=== PATIENT | female | born 1935 | race Caucasian/White ===

== ENCOUNTER 2016-07-21 18:19 | Inpatient (IN) | payer MEDICARE, OTHER ==
[~2016-07-21] VITALS: Ht 152.4 cm; Wt 56.1 kg
[~2016-07-21 18:19] MED LIST: AMLO10TA3 PO; ASPI81TA3 PO; ATOR80TA PO; CARV12.52 PO; CHOL10008 PO; CRAN1TAB5 PO; FURO40TA4 PO; HYDR-3939 PO; ISOS20TA4 PO; MAGN500C4 PO; MULT-1065 PO; NITR0.4T SL; POTA10TA38 PO; RANI150C4 PO
[2016-07-21 18:33] VITALS: BP 142/69; PULSE 97; RESP 23; O2SAT 91
--- NOTE | 2016-07-21 18:43 | ED.REPORT ---
HPI-Chest Pain 40 and Over Date of Service Jul 21, 2016 ED Provider: Clarice Farnsworth MD Patient is an 80 year female who presents to the ED via EMS complaining of SOB onset a few days ago. Associated symptoms include constant chest pain (since resolved, given Nitro and aspirin by EMS), non-productive cough, chills (family reports baseline) , abdominal pain, and nausea. She denies fever, edema, vomiting, or any other symptoms. Nursing Notes Stated Complaint: CHEST PAIN Chief Complaint: Chest Pain Nursing Notes Reviewed: Yes Allergies: Coded Allergies: Sulfa (Sulfonamide Antibiotics) (Verified Allergy, Unknown, KIDNEY PROBLEMS, 11/26/15) Scheduled Amlodipine (Amlodipine) 10 Mg Tablet 10 MG PO BID Aspirin Chew (Aspirin Chew) 81 Mg Chew 81 MG PO HS Atorvastatin (Lipitor) 80 Mg Tablet 80 MG PO HS Carvedilol (Carvedilol) 12.5 Mg Tablet 12.5 MG PO BID Cholecalciferol (Vitamin D3) (Vitamin D3) 1,000 Unit Tab.chew 1,000 UNIT PO HS Cranberry Conc/C/Bacill Coag (Cranberry Tablet) 1 Each Tablet 1 EACH PO BID Ferrous Sulfate (Ferrous Sulfate) 324 Mg Tablet.dr 324 MG PO TID Furosemide (Furosemide) 40 Mg Tablet 40 MG PO QAM Isosorbide MN ER (Isosorbide MN ER) 60 Mg Tab.er.24h 60 MG PO QAM Magnesium Oxide (Magnesium) 500 Mg Capsule 500 MG PO BID Multivits-Min/Iron/FA/Lutein (Centrum Silver Women Tablet) 8 Mg Iron-400 Mcg- 300 Mcg Tablet 1 EACH PO QAM Potassium Chloride (Potassium Chloride) 10 Meq Tab.er.prt 10 MEQ PO QAM TAKE WITH FOOD Ranitidine (Ranitidine) 150 Mg Capsule 150 MG PO HS Scheduled PRN Nitroglycerin SL (Nitrostat) 0.4 Mg Tab.subl 0.4 MG SL Q5MIN PRN PRN For Chest Pain General Time Seen by MD: 18:43 Chief Complaint Chest pain Hx Obtained From: Patient, Spouse, Daughter Arrived By: Ambulance Sudden in Onset?: Yes Onset Occurred: 3 days ago Symptom Duration: Since onset Risk Factors )( CAD Risk Stratification Hyperlipidemia HypertensionNo Diabetes mellitus Risk factors reviewed )( TAD Risk Stratification HypertensionNo Risk factors reviewed )( PE Risk Stratification Risk factors reviewed Past Medical History Past Medical History Notes: Back End Web Developer: Dr. Jain Property Management Intern: Dr. Key PCP: Dr. Mukherjee Cardiac cath January 2007 no signficant coronary disease normal LV function increased LVEDP consistent with diastolic dysfunction Past Medical History known LBBB and AV block Reports: Congestive heart failure, Hyperlipidemia, Hypertension, Denies: Diabetes mellitus Reports: Atrial fibrillation, Renal insufficiency Past Surgical History cardiac catheterization Family History Reports: Coronary artery disease, Stroke Smoking History Former Smoker Social History Other Social History: Good social support, , Local resident Ambulatory Status Independent Review of Systems Constitutional: Denies: Fever Respiratory: Reports: Non-productive cough, Shortness of breath Cardiovascular: Reports: Chest pain GI: Reports: Abdominal pain, Nausea, Denies: Vomiting Musculoskeletal: Denies: Extremity swelling Complete sys rev & neg: except as marked. Physical Exam Initial Vital Signs Vital Signs (First) Date Time Temp Pulse Resp B/P Pulse Ox O2 Delivery O2 Flow Rate FiO2 07/21/16 18:33 37.3 97 23 142/69 91 Nasal Cannula 3 Initial VS: Reviewed Head / Eyes: Atraumatic, Normocephalic Neck: Full range of motion Extremities: Vascular intact, Neuro intact, No swelling Skin: Warm, Dry Neurologic: Alert, Oriented, Nonfocal Psychiatric: Mood/affect normal, Behavior normal, Normal thought content Wheezing / Retractions: Positive: Wheezing mild (Diffuse ) Off of oxygen her O2 level drops to 88 Cardiovascular: Heart rate NL, Regular rhythm, Heart sounds NL, Peripheral circulation NL Abdomen: Atraumatic, Soft, Non-tender Interpretation & Diagnostics Lab Results Interpretation Result Diagram: 07/21/16 1856 07/21/16 1856 Test 07/21/16 18:56 White Blood Count 10.3th/mm3 (3.8-10.1) Red Blood Count 3.62mil/mm3 (3.90-5.20) Hemoglobin 11.2g/dL (12.0-15.6) Hematocrit 33.6% (35.0-46.0) Mean Corpuscular Volume 92.8fL (81-100) Mean Corpuscular Hemoglobin 30.9pg (27.0-35.0) Mean Corpuscular Hemoglobin Concent 33.3% (32.0-37.0) Red Cell Distribution Width 13.8% (12.3-15.4) Platelet Count 125bil/L (150-400) Neutrophils (%) (Auto) 82.2% (40-74) Lymphocytes (%) (Auto) 9.0% (14-46) Monocytes (%) (Auto) 8.1% (4-12) Eosinophils (%) (Auto) 0.3% (0-5) Basophils (%) (Auto) 0.2% (0-3) Activated Partial Thromboplast Time 20.2sec (22.8-33.0) Sodium Level 138mEq/L (134-144) Potassium Level 3.9mEq/L (3.5-5.2) Chloride Level 103mEq/L (97-108) Carbon Dioxide Level 21mmol/L (18-29) Blood Urea Nitrogen 27mg/dL (8-27) Creatinine 1.84mg/dL (0.57-1.00) Estimat Glomerular Filtration Rate 38mL/min (>59) Glucose Level 144mg/dL (60-99) Calcium Level 9.1mg/dL (8.5-10.1) Magnesium Level 1.8mg/dL (1.6-2.6) Total Bilirubin 1.2mg/dL (0.0-1.2) Aspartate Amino Transf (AST/SGOT) 204U/L (0-50) Alanine Aminotransferase (ALT/SGPT) 182U/L (0-32) Alkaline Phosphatase 202U/L (25-165) Pro-B-Type Natriuretic Peptide 33844vc/mL (0-738) Total Protein 6.5g/dL (6.4-8.4) Albumin 3.2g/dL (3.4-5.0) Procalcitonin 0.87ng/mL (See Comment) Hold Brown Top Tube Received (Received) ECG Interpretation ECG Interpretation: LBBB unchanged prior sinus 91 does not meet Sgarbossa criteria Time: 18:54 Interpreted by: ED physician X-Ray Chest Interpretation Chest Xray Interpretation: IMPRESSION: Bibasilar pneumonia. Follow up plain films of the chest are recommended to ensure resolution, and to exclude underlying or central malignancy. Dictated by: Timothy Dwyer M.D. on 07/21/2016 at 18:54 Approved by: Timothy Dwyer M.D. on 07/21/2016 at 18:54 View: Portable, 1 view Interpretation / Wet Read by: Interpret - Radiologist Re-Eval/Medical Decision Med Decision/Clinical Course 80-year-old female with past medical history of hypertension, CHF, chronic renal insufficiency here with chest pain which has been getting progressively worse over the last several days associated with cough. Differential diagnosis includes but is not limited to CHF exacerbation versus pneumonia versus acute coronary syndrome versus influenza. Labs are remarkable for baseline renal insufficiency, elevated troponin which is not the patient's baseline, elevated BNP, baseline anemia. X-ray shows bibasilar pneumonias. Her EKG shows a left bundle branch block that does not meet Sgarbossa criteria for SC. Patient has been accepted by hospitalist and I have discussed the case with cardiology who did request that she will is heparinized in the meantime. Patient has also been given antibiotics for pneumonia. She is aware and amenable to admission at this time. Time of Eval: 20:21 Re-Evaluation/Progress Note: Rechecked patient. Discussed desire for admission and informed patient of consult with cardiology. Patient understands and agrees with plan. All questions addressed at this time. Consultation #1: Referral / Consult Name: Becca Segal MD Consulted With: Hospitalist Call Returned at: 19:47 Bee Farmer: Will see patient, Agrees with eval, Agrees with plan, Accepts admit Note: Discussed patient's case. Accepts admit. Consultation #2: Referral / Consult Name: Fer Musa MD Consulted With: Cardiology Call Returned at: 20:14 Note: Suggests using Heparin but not Plavix. Does not feel like it is necessary for patient to be seen in the cardiac catheterization technologist. Consultation #3: Referral / Consult Name: Becca Segal MD Consulted With: Hospitalist Call Returned at: 20:20 Bee Farmer: Agrees with plan Note: Informed hospitalist of consult with cardiology and plan for treatment. Counseled Regarding: Diagnosis, Lab results, Need for admission Discharge & Departure Disposition: ADMITTED TO HOSPITAL Referrals: Ghulam Mukherjee MD (PCP) Scribe Attestation Portions of this note were transcribed by René Mallory. IDr. Farnsworth personally performed the history, physical exam and medical decision-making; I reviewed and confirmed the accuracy of the information in the transcribed note. Signed by: René Mallory 07/21/2016, 220 copies to: Ghulam Mukherjee MD, Rebecca A MD Jul 21, 2016 18:43 RENÉ MALLORY Jul 21, 2016 18:57
--- NOTE | 2016-07-21 18:56 | DRSVH ---
PROCEDURE: X-RAY CHEST ONE VIEW, PORTABLE ([id number]) INDICATIONS: chest pain TECHNIQUE: One view of the chest was acquired. COMPARISON: None. FINDINGS: Surgical changes and devices: None. Lungs and pleura: No pleural effusions or pneumothorax. Mild bibasilar patchy airspace opacity. Mediastinum: Mediastinal contours appear normal. Heart size is normal. Bones and chest wall: No suspicious bony lesions. Overlying soft tissues appear unremarkable. IMPRESSION: Bibasilar pneumonia. Follow up plain films of the chest are recommended to ensure resolut ion, and to exclude underlying or central malignancy. Dictated by: Timothy Dwyer M.D. on 07/21/2016 at 18:54 Approved by: Timothy Dwyer M.D. on 07/21/2016 at 18:54
[2016-07-21] MEDS ORDERED: cefTRIAXone Inj 1,000 MG in IV Premix 1 EACH IV ONE (19:10)
[2016-07-21] MEDS ORDERED: Azithromycin Inj 500 MG in Dextrose 5% w/Vial Mate 250 ML IV ONE (19:10)
[2016-07-21 19:13] LABS: BASOPHILS % (AUTO) 0.2 % (0-3); EOSINOPHILS % (AUTO) 0.3 % (0-5); MONOCYTES % (AUTO) 8.1 % (4-12); Mean Corpuscular Hemoglobin 30.9 pg (27.0-35.0); Mean Corpuscular Volume 92.8 fL (81-100); NEUTROPHILS % (AUTO) 82.2 % (40-74); Platelet Count 125 bil/L (150-400)
[2016-07-21 19:33] LABS: Magnesium 1.8 mg/dL (1.6-2.6)
[2016-07-21 19:46] LABS: TROPONIN T 0.055 ug/L (0.0-0.011)
[2016-07-21] MEDS ORDERED: Ondansetron 2 mg/mL 2 mL Inj IVPUSH PRN ×2 (20:10→21:00)
[2016-07-21] MEDS ORDERED: Alum-Mag Hydrox-Simeth 30 mL Suspension PO PRN ×2 (20:10→21:00)
[2016-07-21] MEDS ORDERED: Heparin 5,000 Unit/mL Inj IVPUSH ONE (20:20)
[2016-07-21] MEDS ORDERED: Heparin 25K Unit/500mL 0.45 NS 25,000 UNIT in IV Premix 1 EACH IV ONE (20:20)
[2016-07-21] MEDS ORDERED: FERR324T2 PO (20:53)
[2016-07-21] MEDS ORDERED: ISOS60TA2 PO (20:53)
[2016-07-21] MEDS ORDERED: Senna-Docusate 8.6-50 mg Tablet PO PRN (21:00)
[2016-07-21] MEDS ORDERED: Polyethylene Glycol (PEG) 17 Gm Powder PO PRN (21:00)
[2016-07-21 21:22] VITALS: BP 139/69; PULSE 92; RESP 18; O2SAT 93
[2016-07-21 21:28] VITALS: BP 143/79; PULSE 71; RESP 18; O2SAT 99
--- NOTE | 2016-07-21 22:11 | PCM.HPMED ---
Subjective Date of Service Jul 21, 2016 Primary Provider: Admitting Physician: Becca Segal MD Primary Care Physician: Ghulam Mukherjee MD Attending Physician: Becca Segal MD Chief Complaint: Dyspnea, Chest pain History of Present Illness: Patient is an 80-year-old female with a history of congestive heart failure, hypertension, dyslipidemia, paroxysmal atrial fibrillation, and chronic kidney disease who presents to the ED via EMS complaining of dyspnea and chest pressure /tightness. Patient is accompanied by her at bedside at time of visit. Patient reports onset of dyspnea and chest pressure about two days ago. Patient' s states the patient slept for most of the day awoke in the afternoon with complaints of worsening shortness of breath and chest pain while at rest. Patient checked her O2 sat and at that time was 83% on room air. 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 EMS was summoned and the patient reports improvement in her dyspnea and chest pressure after their arrival and after receiving sublingual nitro. Patient reports associated diaphoresis, nausea and an episode of emesis. She otherwise denies radiation with the chest pain, lower extremity edema, abdominal pain, fever, recent sick contacts. In the ED, vitals: temp 373, HR 97, RR 23 satting 91% on 3L, BP 142/69. Troponin 0.055, Pro-BNP 10538. Chest x-ray reads bibasilar pneumonia. EKG with chronic LBBB. Patient subsequently started on ceftriaxone, azithromycin and heparin gtt cardiac protocol. Review of Systems: A comprehensive review of systems was conducted with the patient and found to be negative except as above in the History of Present Illness. Allergies Coded Allergies: Sulfa (Sulfonamide Antibiotics) (Verified Allergy, Unknown, KIDNEY PROBLEMS, 11/26/15) Home Medications Amlodipine 5mg BID Carvedilol 12.5mg BID Lasix 40mg daily Atorvastatin 80mg daily Ranitidine 150mg daily Ferrous sulfate 324mg TID Isosorbide mononitrate 30mg daily ASA 81mg daily Multivitamin daily Vitamin D3 1000mg Potassium chloride 10mEq daily Magnesium 500mg BID PMH Hypertension with hypertensive heart disease Chronic LBBB First degree AV block Hyperlipidemia Moderate Mitral regurgitation and mod tricuspid regurgitation Paroxysmal Atrial Fibrillation Chronic Kidney disease. Followed by Dr Key Chronic diastolic heart failure (Echo 11/2015 with EF 40-45%) Renal artery stenosis s/p renal stent placement Surgical History Cataract Cardiac cath Hysterectomy Tonsillectomy Laser ablation of varicose veins Left Hip replacement Cystocele repair MOHS procedure for squamous cell carcinoma Family History Father hypertension, CVA, from kidney failure with history of LA at 70 Mother DM, hypertension, of massive LA in sleep at 83 Sister 1 from massive LA Social History Occupation: Retired, former [employer] Hx Alcohol Use: No Hx Substance Use: No Hx Tobacco Use: Yes Smoking Status: Former Smoker Living Arrangement: with Family Exam Vital Signs Vital Sign - Last Date Time Temp Pulse Resp B/P Pulse Ox O2 Delivery O2 Flow Rate FiO2 07/21/16 18:33 37.3 97 23 142/69 91 Nasal Cannula 3 Exam General: No acute distress, well-developed, appropriately interactive HEENT: Normocephalic, atraumatic. External ears without defect. Pupils equal, round, and reactive to light. Anicteric sclerae, moist conjunctivae, and no lid lag. Oropharynx free of erythema and cobble stoning with moist mucosa. Nasal cannula in place. Neck: Supple. No jugular venous distension. Prominent submandibular nodes. No thyromegaly appreciated. Cardiovascular: Regular rate and rhythm with no murmurs, rubs, or gallops appreciated Pulmonary: Crackles at bases bilaterally. Normal respiratory effort with no use of accessory muscles. Abdomen: Bowel tones present. Soft, nontender, nondistended. No hepatosplenomegaly or masses appreciated. Extremities: Dorsalis pedis pulses equal bilaterally. No clubbing, cyanosis, edema, or lymphadenopathy appreciated. Skin: Normal temperature, turgor, and texture Neurological: Cranial nerves grossly intact Psychiatric: Normal mood and affect. Alert and oriented to person, place, and time. Lab and Diagnostics Result Diagram: 07/21/16185507/21/161855 X-Rays, CTs and MRIs PROCEDURE: X-RAY CHEST ONE VIEW, PORTABLE ([id number]) INDICATIONS: chest pain TECHNIQUE: One view of the chest was acquired. COMPARISON: None. FINDINGS: Surgical changes and devices: None. Lungs and pleura: No pleural effusions or pneumothorax. Mild bibasilar patchy airspace opacity. Mediastinum: Mediastinal contours appear normal. Heart size is normal. Bones and chest wall: No suspicious bony lesions. Overlying soft tissues appear unremarkable. IMPRESSION: Bibasilar pneumonia. Follow up plain films of the chest are recommended to ensure resolution, and to exclude underlying or central malignancy. Dictated by: Timothy Dwyer M.D. on 07/21/2016 at 18:54 Approved by: Timothy Dwyer M.D. on 07/21/2016 at 18:54 Assessment & Plan Patient is an 80-year-old female with a history of congestive heart failure, hypertension, dyslipidemia, paroxysmal atrial fibrillation, and chronic kidney disease admitted for dyspnea and chest pain; found to have bilateral pneumonia and elevated troponin. 1. Acute chest pain. Present on admission -Chest pain resolved following SL nitro via EMS -Risk factors for ACS includes CAD, dyslipidemia, hypertension, family history -Possible etiologies include ACS, CHF exacerbation, pneumonia -Elevated troponin 0.055. Continue to trend -Continue cardiac heparin gtt -SL nitro and morphine PRN -Telemetry -Cardiology to see the patient 2. Bibasilar pneumonia, acute. Present on admission -Chest x-ray reads bibasilar pneumonia -Will place in droplet isolation until influenza screen results -Pending studies: Procalcitonin, Respiratory viral PCR, legionella and strep pneumo urine ag, Sputum cx -Azithromycin and ceftriaxone 3. Chronic systolic and diastolic heart failure. Present on admission -Echocardiogram 11/2015 shows estimated EF 40-45%; Septal motion consistent with conduction abnormality. Mid to distal septal hypokinesis, mild inferior hypokinesis -Pro-BNP 41638 -I/Os, standing daily weights -Lasix 40mg IV x 1. Reassess in AM -Continue home hydralazine and isosorbide mononitrate 4. Acute transaminitis. Present on admission -Possibly secondary to hepatic congestion secondary to #3 -Consider acute hepatitis panel -Follow with CMP 5. Hypertension with Hypertensive heart disease, chronic. Present no admission - Continue amlodipine, hydralazine and isosorbide 6. Dyslipidemia, chronic. Present on admission -Lipid panel -Continue home atorvastatin 80 mg daily 7. Chronic kidney disease. Present on admission -Creatinine 1.84; Query baseline renal function -Avoid nephrotoxins -Follow with CMP 8. Paroxysmal Atrial Fibrillation, chronic. Present on admission -Currently NSR -Monitor on tele Patient Status: Patient is admitted under inpatient status with expected length of stay greater than 2 midnights due to severity of presenting symptoms, risk of adverse event, and complexity of treatment plan. GI Prophylaxis: Not indicated VTE Prophylaxis: Other (cardiac heparin gtt) Resuscitation Status: DNR/DNI:Do Not Resuscitate/Intubate Attending Statement Patient seen and examined by myself and agree with above plan. Dom River DO Jul 21, 2016 21:32 Becca Segal MD Jul 22, 2016 02:36
[2016-07-21] MEDS ORDERED: Furosemide 10 mg/mL 4 mL Inj IVPUSH ONE (22:15)
--- NOTE | 2016-07-21 23:17 | NUR ---
Admit Patient arrived to room 1028 around 2114 via ER bed. Able to stand and walk to OSC bed. A&Ox3, answering questions appropriately. Denied pain or discomfort. Placed on droplet precautions per order. UA obtained and sent to lab. Arrived to floor with heparin gtt running @ 16 ml/hour. IV site asymptomatic. Orders noted to be written for PCC/CCU. Paged Dr. River @ [phone] to clarify which floor he would like patient on. Dr. River stated he would like patient on PCC floor r/t chest pain. Spoke with charge poster on PCC and there were no open beds available. Patient to go [place] [facility]. Admit completed with patient to best of her ability. Med rec completed in ER. Oriented to room and call light. Addendum: 07/22/16 at 0004 by ALIX HYDE RN Report given to SYLVIE Bernard on [facility]. Patient taken up via OSC bed around 2350. Meds and belongings sent with.
[2016-07-21 23:50] LABS: APPEARANCE,URINE HAZY (CLEAR,HAZY); COLOR,URINE YELLOW (YELLOW); OCCULT BLOOD,URINE SMALL (NEGATIVE); UROBILINOGEN,URINE NORMAL (NORMAL)
[2016-07-22] VITALS (7 sets, daily range): BP systolic 118–148; BP diastolic 58–80; PULSE 62–81; RESP 18–20; O2SAT 92–98
[2016-07-22 03:19] LABS: BASOPHILS % (AUTO) 0.2 % (0-3); EOSINOPHILS % (AUTO) 1.5 % (0-5); MONOCYTES % (AUTO) 9.5 % (4-12); Mean Corpuscular Hemoglobin 31.4 pg (27.0-35.0); NEUTROPHILS % (AUTO) 68.9 % (40-74); Platelet Count 124 bil/L (150-400)
--- NOTE | 2016-07-22 07:43 | NUR ---
[place] / [place]iac [place] [facility] [facility] [id number] approx at 0000. Heparin gtt cardiac protocol was infusing at 600 u/hr. VSS. Pt denies CP or SOB. Up to BSC x 2. Tolerated well. PTT spuratherapeutic . Gtt adjusted per cardiac. No overt complications noted.
[2016-07-22] MEDS ORDERED: 0.9% Sodium Chloride 250 ML ONE (08:12)
[2016-07-22] MEDS ORDERED: cefTRIAXone Inj 1,000 MG in IV Premix 1 EACH IV SCH (08:30)
[2016-07-22] MEDS: Azithromycin Inj 500 MG in Dextrose 5% w/Vial Mate 250 ML IV SCH (09:22)
[2016-07-22] MEDS: Heparin 5,000 Unit/mL Inj IVPUSH PRN (12:22)
[2016-07-22] MEDS ORDERED: Furosemide 10 mg/mL 2 mL Inj IVPUSH SCH (14:25)
[2016-07-22] MEDS: Isosorbide Mononitrate 60 mg ER24 Tablet PO SCH (14:45)
--- NOTE | 2016-07-22 15:21 | CONS ---
[address] [address] CONSULTATION REPORT PATIENT: WILLIE ACOSTA : 1935 MR#: [id number] ADMIT: 07/21/2016 JOB ID: [id number] DATE OF SERVICE: 07/22/2016 CARDIOLOGY CONSULTATION: REASON FOR CONSULT: For the evaluation of shortness of breath, chest pain and abnormal troponin. CHIEF COMPLAINT: Shortness of breath, chest pain, palpitations. PRESENT HISTORY: This 80-year-old pleasant female, who is a patient of Dr. Jain, who has a history of chronic left bundle branch block, first-degree AV block, paroxysmal AFib, LV ejection fraction 45%-50% based on echocardiogram done on March 18, 2016 with oxmnytwo-dn-jceveh mitral regurgitation, jxsjstfr-nv-kdylna tricuspid regurgitation, severe pulmonary hypertension with pulmonary artery systolic pressure about 82 mmHg, mild aortic regurgitation, renovascular hypertension, status post left renal artery stenting in 2008, status post left heart catheterization in 2006 without any significant coronary artery disease at that time, chronic renal insufficiency, creatinine about 2.2. in April 2016, got admitted because of above-mentioned chief complaint. According to the patient, on , she felt palpitations. Two days ago she had shortness of breath and chest pain which was pressure type. It lasted a couple of hours. On a scale of 1-10, it was about 6 or 7 in intensity. Then, she went into sleep. Next day, she was sleeping the whole day. Then, she developed shortness of breath and chest pain again. Her checked her oxygen saturation which was 83%. She was started on oxygen. EMS was called. She received sublingual nitroglycerin which helped her chest pain. She got admitted to the hospital. On x-ray chest there were bibasilar pneumonia. She has chronic left bundle branch block. Her troponin was abnormal. ProBNP was elevated. She was started on treatment for pneumonia as well as possible acute coronary syndrome. Cardiology consult was sought. At present, she is lying on bed. She is not having any active chest pain. Her breathing is better. According to her from last couple of months, she has been having memory loss as well. At present, no stroke-like symptoms. No active bleeding. She has some cough but she is not able to bring phlegm. Denies any fever or chills. PAST MEDICAL HISTORY: 1. History of chronic left bundle branch block. 2. First-degree AV block. 3. Mild LV dysfunction with LV ejection fraction 45%- 50% with severe pulmonary hypertension. 4. Moderately severe mitral and tricuspid regurgitation with pulmonary artery systolic pressure about 82 mmHg based on echocardiogram done on March 18, 2016. 5. No significant coronary artery disease based on heart catheterization January 2007. 6. Renovascular hypertension. 7. Left renal artery stenting in 2008, without any critical carotid artery disease in the past. 8. Hyperlipidemia. 9. Diastolic heart failure as well. 10. Degenerative joint disease. 11. Paroxysmal Afib. 12. Chronic renal insufficiency, etc. PAST SURGICAL HISTORY: As stated above. ALLERGIES: The patient is allergic to SULFA. HOME MEDICATION: 1. Amlodipine 5 mg b.i.d. 2. Carvedilol 12.5 mg b.i.d. 3. Lasix 40 mg daily. 4. Atorvastatin 80 mg daily. 5. Ranitidine 150 mg daily. 6. Ferrous sulfate 324 mg t.i.d. 7. Isosorbide mononitrate 30 mg daily. 8. Aspirin 81 mg daily. 9. Multivitamin. 10. Vitamin D3. 11. Potassium chloride 10 mEq daily. 12. Magnesium 500 mg b.i.d. PAST SURGICAL HISTORY: 1. Cataract surgery. 2. Left renal artery stenting. 3. History of heart catheterization. 4. Hysterectomy. 5. Tonsillectomy. 6. Laser ablation of varicose veins. 7. Left hip replacement. 8. Cystocele repair. 9. Mohs procedure for squamous cell carcinoma. FAMILY HISTORY: Positive for CVA, TN. REVIEW OF SYSTEMS: HEENT: As stated above. Respiratory system: As stated above. CV: As stated above. GI: As stated above. : As stated above. CARPENTER MINE: Denies any stroke, seizure at present. Hematology/Oncology: As stated above. SOCIAL HISTORY: She is an ex-smoker. Denies any alcohol abuse. PHYSICAL EXAMINATION: Blood pressure 148/74, heart rate 76, respiratory rate 18, oxygen saturation 98% on 3 L. HEENT: No significant jaundice. Positive hepatojugular reflex. Chest: Bilateral decreased air entry with crepitations. CVS: S1 appears normal. P2 appears paradoxically split. Grade 2/6 ejection systolic murmur at the left lower sternal area in the apex as well as at the base. Abdomen: No obvious pulsatile mass. Extremities: Mild pedal edema. Vascular: No evidence of critical limb ischemia. CARPENTER MINE: The patient is responding to questions, able to move all the four extremities. LABORATORY: Sodium 137, potassium 3.6, BUN 27, creatinine 1.78. Total bilirubin 0.8, AST 129, ALT 143, alkaline phosphatase 171. Troponin T 0.055, 0.211, 0.215, 0.270. Procalcitonin 0.87-1.79. ProBNP 26,313. WBC 6.6, initial WBC 10.3, hemoglobin 11.7, hematocrit 34.7. Polymorphs on admission 82.2. IMAGING: X-ray of chest, bilateral basilar pneumonia. Heart size reported to be normal. The patient had a pharmacological perfusion study in November 2005. In that time, the patient has about moderate-sized predominantly fixed distal anterior wall apical defect. The patient did not have any prone images. At that time LV ejection fraction reported to be 62% without significant reversible ischemia. EKG revealed sinus rhythm with left bundle branch block with first-degree AV block which is old. ASSESSMENT AND PLAN: Acute coronary syndrome. Likely non ST-T myocardial infarction. The patient has chronic left bundle branch block and first-degree AV block. In the setting of pneumonia, likely combination of systolic as well as diastolic heart failure with known history of moderately severe mitral regurgitation, tricuspid regurgitation, severe pulmonary hypertension, renovascular hypertension, status post left renal artery stenting in 2008, chronic kidney disease, history of paroxysmal AFib, abnormal liver function, and other problems as stated above. I had a long discussion with the patient's as well as with the patient and discussed underlying medical problems as well as possibility of acute coronary syndrome with non ST-T myocardial infarction. We discussed different treatment options including invasive approach which will require left heart catheterization with benefits and risks, which include, but not limited to, risk of worsening renal insufficiency, myocardial infarction, stroke, , etc. The patient is aware of her underlying medical problems including worsening renal insufficiency. She already sees Dr. Key from Nephrology. At present, decided not to do any aggressive cardiac workup. Medical management only. Will get echocardiogram. I will start her on dual anti-platelet therapy. For 48 hours, consider heparin. Regarding long-term anticoagulation, I will leave up to her boom pump operator, Dr. Jain, who saw her on June 02, 2016. Continue diuretic as tolerated along with tolerable dose of beta jeanne. She is on high intensity statin. We will recommend close watch on liver function. If there is increase in liver function, then cut down the pravastatin from 80 to 40 mg. Tomorrow my associate, Dr. Mayfield, will be available to see the patient Overall time spent today about 75 minutes.
--- NOTE | 2016-07-22 16:09 | PCM.PNMED ---
Subjective Date of Service Jul 22, 2016 Subjective No overnight events. Patient is awake and denies chest pain or shortness of breath this morning. She does c/o sharp pain in her right abdomen, 7/10. Denies nausea, vomiting, diarrhea, constipation, fever, chills. Exam Vital Signs Vital Sign - Last Date Time Temp Pulse Resp B/P Pulse Ox O2 Delivery O2 Flow Rate FiO2 07/22/16 10:11 36.3 76 18 148/74 98 Nasal Cannula 3.00 Intake and Output 07/21/16 07/21/16 07/22/16 Cumulative From/Thru 15:00 23:00 07:00 07/21/16 21:15 - 07/22/16 06:57 Intake Total 555 ml 555 ml Output Total 400 ml 400 ml Balance 155 ml 155 ml Intake Oral 200 ml 200 ml IV Total 355 ml 355 ml Output Urine Total 400 ml 400 ml # Bowel Movements 0 0 Exam WNWD, A&O x 3, NAD Sclera anicteric Neck supple, no JVD Regular rate and rhythm Lungs CTAB Abdomen soft, tender to palpation at the RUQ Lower extremities with trace pitting edema L>R Lab and Diagnostics Result Diagram: 07/22/16 0715 07/22/16 0310 Microbiology Microbiology MONSTER STREP PNEUMONIAE AG URINE Final 07/22/16-0831 STREP PNEUMO AG POSITIVE Tests performed directly on clinical specimens are intended for screening purposes only and should augment, not replace, culture procedures Please Note: Streptococcus pneumoniae vaccine may cause false positive results in urine in the 48 hours following injection. Hence, it is recommended that the Alere Strep pneumoniae Antigen testing not be performed within five days of receiving the S. pneumoniae vaccine X-Rays, CTs and MRIs PROCEDURE: X-RAY CHEST ONE VIEW, PORTABLE ([id number]) INDICATIONS: chest pain TECHNIQUE: One view of the chest was acquired. COMPARISON: None. FINDINGS: Surgical changes and devices: None. Lungs and pleura: No pleural effusions or pneumothorax. Mild bibasilar patchy airspace opacity. Mediastinum: Mediastinal contours appear normal. Heart size is normal. Bones and chest wall: No suspicious bony lesions. Overlying soft tissues appear unremarkable. IMPRESSION: Bibasilar pneumonia. Follow up plain films of the chest are recommended to ensure resolution, and to exclude underlying or central malignancy. Dictated by: Timothy Dwyer M.D. on 07/21/2016 at 18:54 Approved by: Timothy Dwyer M.D. on 07/21/2016 at 18:54 12-lead ECG EKG: sinus rhythm with LBBB and first degree AV block Assessment & Plan Patient is an 80-year-old female with a history of congestive heart failure, hypertension, dyslipidemia, paroxysmal atrial fibrillation, and chronic kidney disease admitted for dyspnea and chest pain; found to have bilateral pneumonia and elevated troponin. 1. Acute coronary syndrome, present on admission, active - Cardiology, Dr. Mayfield, consulted We appreciate the input - Likely NSTEMI - Patient with LBBB and 1st degree AV block - Risk factors for ACS includes CAD, dyslipidemia, hypertension, family history - Possible etiologies include CHF exacerbation, pneumonia, CKD - Elevated troponin 0.055. Continue to trend: 0.215, 0.270 - Different treatment options discussed with the patient and her ( Raulmishelzoe). They opted for medical management only - Continue cardiac heparin gtt for 48 hours - SL nitro and morphine PRN - Telemetry - Dual antiplatelet therapy per Dr. Mayfield - ECHO 2. Bibasilar pneumonia, acute, present on admission - Chest x-ray reads bibasilar pneumonia - Positive for Strep pneumo urine AG - Azithromycin and ceftriaxone - Negative respiratory viral PCR - Procalcitonin: 0.89, 1.79 3. Chronic systolic and diastolic heart failure, acute, present on admission - Echocardiogram 11/2015 shows estimated EF 40-45%; Septal motion consistent with conduction abnormality. Mid to distal septal hypokinesis, mild inferior hypokinesis - Pro-BNP 18266 - I/Os, standing daily weights - Lasix 40mg IV x 1 - Continue home carvedilol and isosorbide mononitrate 4. Acute transaminitis, present on admission - Possibly secondary to hepatic congestion secondary to #3, statin toxicity, cholecystitis, etc. - US abdomen - Cut down Pravastatin from 80 mg to 40 mg - Consider acute hepatitis panel - Follow with CMP 5. Hypertension with Hypertensive heart disease, chronic, present no admission - Continue amlodipine, carvedilol and isosorbide 6. Dyslipidemia, chronic, present on admission - Lipid panel - Continue home atorvastatin 80 mg daily - 7. Chronic kidney disease, present on admission - Creatinine 1.84 on admission, then 1.78; Query baseline renal function - Avoid nephrotoxins - Follow with CMP 8. Paroxysmal Atrial Fibrillation, chronic, present on admission - Currently NSR - Monitor on tele Patient Status: Patient is admitted under inpatient status with expected length of stay greater than 2 midnights due to severity of presenting symptoms, risk of adverse event, and complexity of treatment plan. Pain Evaluation: Adequate Pain Control GI Prophylaxis: Not indicated VTE Prophylaxis: Other (cardiac heparin gtt) Resuscitation Status: DNR/DNI:Do Not Resuscitate/Intubate Attending Statement I reviewed this patients chart, discussed the plan of care with the resident and examined the patient. I agree with the above physical exam and assessment and plan. BEATA CROSS DO Jul 22, 2016 16:09 Jae Felipe DO Jul 22, 2016 16:42
--- NOTE | 2016-07-22 16:30 | DRSVH ---
[facility] [address] [place] [address] Echocardiogram Report Name: WILLIE ACOSTA CStudy Date: Height: 60 in Hospital Exam Location: [facility] Weight: 125 lb Gender: Female BSA: 1.5 m2 : 1935 Age: 80 yrs BP: 148/74 mmHg Reason For Study: Acute Coronary Syndrome, CHF Ordering Physician: Performed By: Kelsea Curran Interpretation Summary The left ventricle is normal in size but left ventricular systolic function is moderate to severely reduced with the ejection fraction visually estimated to be 25-30%, now with a significant dyssynchronous contraction pattern, consistent with a conduction abnormality and moderate to severe global hypokinesis that is worse in the septum and apex. This is much more pronounced compared to the previous study and compared to the prior exam, left ventricular function has significantly decreased. The right ventricle is normal size and right ventricular systolic function is at the lower limits of normal. This is unchanged compared to the previous study. The right ventricular systolic pressure is estimated at 48 mmHg assuming a right atrial pressure of 3 mm Hg, and is likely significantly lower compared to the previous study. Both atria are normal in size and both atria have mildly decreased in size since the prior echo exam. There is moderate mitral regurgitation and moderate tricuspid regurgitation that appear less prominent compared to the previous study. There is mild aortic stenosis and mild aortic regurgitation that are unchanged compared to the previous study. The ascending aorta is at the upper limits of normal in size but is unchanged compared to the previous study. The patient was in probable sinus tachycardia with heart rates between 100- 120 bpm during the exam which is considerably faster compared to the previous study. Procedure: A two-dimensional transthoracic echocardiogram with color flow and Doppler was performed. The study quality was technically good. Comparison is made with the echocardiogram of 03/18/2016. The patient was in sinus tachycardia with heart rates between 100-120 bpm during the exam. This is considerably faster compared to the previous study. Left Ventricle: The left ventricle is normal in size. There is normal left ventricular wall thickness. There is no thrombus. Left ventricular systolic function is moderate to severely reduced. The ejection fraction is estimated to be 25-30%. Compared to the prior exam, left ventricular function is significantly decreased. There is a significant dyssynchronous contraction pattern, consistent with a conduction abnormality. There is moderate to severe global hypokinesis of the left ventricle. This is worse in the septum and apex. This is much more pronounced compared to the previous study. Diastolic function could not be accurately assessed due to tachycardia. Right Ventricle: The right ventricle is normal size. Right ventricular systolic function is at the lower limits of normal. This is unchanged compared to the previous study. Atria: Both atria are normal in size. Both atria have mildly decreased in size since the prior echo exam. The interatrial septum is intact with no evidence for an atrial septal defect. There is no Doppler evidence for an interatrial shunt. Mitral Valve: There is mild to moderate mitral annular calcification. The mitral valve leaflets appear mildly thickened, but open well. The mitral valve leaflets are slightly calcified. There is moderate mitral regurgitation. This is less prominent compared to the previous study. Aortic Valve: The aortic valve is trileaflet. The aortic valve opens well. The aortic valve is mildly calcified. Leaflet mobility is mildly reduced. There is mild aortic stenosis. There is mild aortic regurgitation. This is unchanged compared to the previous study. Tricuspid Valve: The tricuspid valve leaflets are thin and pliable. There is moderate tricuspid regurgitation. The right ventricular systolic pressure is estimated at 48 mmHg assuming a right atrial pressure of 3 mm Hg. This is significantly lower compared to the previous study. Pulmonic Valve: The pulmonic valve is not well seen, but is grossly normal. There is a trace or physiologic amount of pulmonic regurgitation. Great Vessels: The aortic root is normal size. The ascending aorta is at the upper limits of normal in size. This is unchanged compared to the previous study. The aortic arch could not be visualized. There is mild luminal irregularity and echogenicity in the abdominal aorta, suggestive of aortic atherosclerotic disease. The IVC is of normal diameter and collapses greater than 50% with a sniff. This suggests a low right atrial pressure of 3 mm Hg. Pericardium/ Pleura There is no pericardial effusion. MMode/2D Measurements & Calculations LVIDd: 4.7 cm LA dimension: 4.2 cm RA long axis LVOT diam LVIDs: 4.0 cm FS: 15.3 % LA A2 area: 15.0 cm RA area AoV Opening EPSS: 1.1 cm LA A4 area: 18.7 cm IVSd: 0.90 cm LA length (vol): 5.1 cm: 12.0 cm Ao root diam LVPWd: 0.87 cm LA vol: 46.6 ml RA vol LA vol index : 26.8 ml Aortic Jxn RA : 17.5 mm/ asc Aorta IVC diam: 0.80 cm RVDd minor Diam: 3.3 cm : 3.1 cm LV escobar. diameter/BSA LV sys. diameter/BSA (cm/m^2): 3.1 (cm/m^2): 2.6 Doppler Measurements & Calculations Ao V2 max: 216.8 cm/sec MVA(VTI) TR max mitch MV V2 mean Ao max P.8 mmHg : 2.4 cm2 : 334.7 cm/sec : 82.7 cm/sec Ao mean P.8 mmHg TR max PG MV mean PG LVOT Max Mitch: 89.3 cm/sec : 44.8 mmHg HIRA(I,D): 1.0 cm PA V2 max MV V2 VTI sev ratio: 0.40 : 86.7 cm/sec : 16.0 cm AI P1/2t: 394.1 msec PA mean PG AI dec slope PA Accel Time : 287.0 cm/s2c Ao V2 mean: 137.3 cm/sec LV V1 max PG MR PISA radius PA V2 mean Ao V2 VTI: 38.1 cm : 48.4 cm/sec HIRA(V,D): 1.0 cm2 LV V1 VTI : 15.1 cm HIRA indexed to [facility] (cm^2/m^2): 0.66 Reading Physician:04:29 PM
--- NOTE | 2016-07-22 17:39 | NUR ---
Activity Pt. up with standby assist today. Denies chest pain. Has mild SOB with exertion. Mild abdominal pain from "gall bladder problems" that she has been having for several months. MDs aware.
--- NOTE | 2016-07-22 18:59 | DRSVH ---
PROCEDURE: US ABDOMEN ([id number]) INDICATIONS: abdominal pain, guarding TECHNIQUE: Real-time scanning was performed of the abdominal and retroperitoneal organs, with image documentatio n. COMPARISON: None. FINDINGS: Liver: Liver is normal in size and homogeneous in echotexture. Gallbladder: The Gallbladder contains small mobile gallstones. No gallbladder wall thickening. No per icholecystic fluid or sonographic 's sign. Biliary ducts: Intrahepatic bile ducts are non-dilated. Extrahepatic bile duct caliber measures 4.7 mm. Normal is 6-7 mm or less in diameter, or 10 mm or less post-cholecystectomy. Pancreas: Visualized portions of the pancreas are sonographically normal. Spleen: Spleen is normal in size. Echogenic foci are likely calcified granulomas. Kidneys: Right kidney is normal in size and echotexture measuring 9.8 cm long. left kidney is modera tely atrophic measuring 7.8 cm long. There is a 1.4 cm cyst in its upper pole of the left kidney. No hydronephrosis or nephrolithiasis. No solid masses. Aorta: Visualized aorta is normal in caliber at less than 3 cm. distal abdominal aorta is ectatic me asuring 2.2 cm is mild fusiform dilation. Calcified plaques are noted. Iliacs: Proximal common iliac arteries are normal in caliber at less than 2.5 cm. IVC: Intrahepatic inferior vena cava is patent. Miscellaneous: No free abdominal fluid. IMPRESSION: 1. Cholelithiasis. No ultrasound findings to suggest acute cholecystitis. 2. 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 3. Moderate left renal atrophy and a 1.4 cm cyst in the superior pole.. 4. Fusiform ectasia of distal abdominal aorta. There is aortic atherosclerosis. Dictated by: Sue Staples M.D. on 07/22/2016 at 18:58 Approved by: Sue Staples M.D. on 07/22/2016 at 18:58
--- NOTE | 2016-07-22 22:10 | NUR ---
critical lab value lab called with critical value of Troponin at 0.293. Paged Dr Coleman, she returned call. No new orders, will continue to monitor.
[2016-07-23] VITALS (7 sets, daily range): BP systolic 135–158; BP diastolic 68–81; PULSE 57–77; RESP 16–20; O2SAT 97–98
[2016-07-23 02:25] LABS: BASOPHILS % (AUTO) 0.2 % (0-3); EOSINOPHILS % (AUTO) 4.3 % (0-5); MONOCYTES % (AUTO) 8.5 % (4-12); Mean Corpuscular Hemoglobin 30.8 pg (27.0-35.0); Mean Corpuscular Volume 93.7 fL (81-100); NEUTROPHILS % (AUTO) 56.9 % (40-74); Platelet Count 114 bil/L (150-400)
[2016-07-23 07:10] LABS: Hepatitis A Antibody IgM Negative (Negative); Hepatitis B Core Antibody IgM Negative (Negative)
--- NOTE | 2016-07-23 09:17 | NUR ---
Social Work: Initial Assessment Data: Pt is an 80 y/o female admitted for bibasal pneumonia, chest pain. Pt's PCP is Dr Mukherjee, pt's insurance is Medicare with [employer]. EMR reviewed. BREAST WORKER met with pt at bedside, role explained. Pt states that she lives in a single story home with her and her daughter with disabilities who they care for. Pt states her spouse is a good support to contact if needed, and that he is her DPOA. BREAST WORKER requested a copy of DPOA for hospital. Pt states that she uses no DME, drives, has no history of HH or SNF, no LTC or VA benefits. Pt and spouse state they can make it to outpt appointments as needed. Likely no d/c planning needs at this time. BREAST WORKER will continue to follow if needs arise. Assessment: Pt who is independent at baseline. Plan: Pt will d/c home via POV with spouse when medically stable for d/c. Likely no d/c planning needs at this time. BREAST WORKER will continue to follow if needs arise. KATIE Manley Addendum: 07/23/16 at 0920 by MING THURSTON Amended: Links added.
[2016-07-23] MEDS: Azithromycin Inj 500 MG in Dextrose 5% w/Vial Mate 250 ML IV SCH (09:41)
[2016-07-23] MEDS: Isosorbide Mononitrate 60 mg ER24 Tablet PO SCH (09:43)
[2016-07-23] MEDS: cefTRIAXone Inj 2,000 MG in IV Premix 1 EACH IV SCH (11:15)
[2016-07-23] MEDS: Heparin 25K Unit/500mL 0.45 NS 25,000 UNIT in IV Premix 1 EACH IV SCH (11:41)
[2016-07-23] MEDS: Furosemide 10 mg/mL 4 mL Inj IVPUSH SCH (11:43)
--- NOTE | 2016-07-23 14:19 | PCM.PNMED ---
Subjective Date of Service Jul 23, 2016 Subjective No overnight events. Patient reports feeling better than yesterday. Denies chest pain, irregular heart palpitations, diaphoresis, nausea, vomiting, abdominal pain. Tolerated dinner last night and breakfast this morning well. is by bedside, states her mental status has much improved. Exam Vital Signs Vital Sign - Last Date Time Temp Pulse Resp B/P Pulse Ox O2 Delivery O2 Flow Rate FiO2 07/23/16 05:48 36.5 59 20 144/68 97 Nasal Cannula 3.00 Intake and Output 07/22/16 07/22/16 07/23/16 Cumulative From/Thru 15:00 23:00 07:00 07/21/16 21:15 - 07/22/16 20:18 Intake Total 1307 ml 1862 ml Output Total 600 ml 1000 ml Balance 707 ml 862 ml Intake Oral 450 ml 650 ml IV Total 857 ml 1212 ml Output Urine Total 600 ml 1000 ml # Bowel Movements 1 1 Exam WNWD, A&O x 3, NAD Sclera anicteric Neck supple, no JVD Regular rate and rhythm Lungs CTAB Abdomen soft, non-tender to palpation at the RUQ Lower extremities with trace pitting edema L>R, but much improved IVs and Medications Medications Reviewed: Medications were reviewed in detail Lab and Diagnostics PROCEDURE: US ABDOMEN ([id number]) FINDINGS: Liver: Liver is normal in size and homogeneous in echotexture. Gallbladder: The Gallbladder contains small mobile gallstones. No gallbladder wall thickening. No pericholecystic fluid or sonographic 's sign. Biliary ducts: Intrahepatic bile ducts are non-dilated. Extrahepatic bile duct caliber measures 4.7 mm. Normal is 6-7 mm or less in diameter, or 10 mm or less post-cholecystectomy. Pancreas: Visualized portions of the pancreas are sonographically normal. Spleen: Spleen is normal in size. Echogenic foci are likely calcified granulomas. Kidneys: Right kidney is normal in size and echotexture measuring 9.8 cm long. left kidney is moderately atrophic measuring 7.8 cm long. There is a 1.4 cm cyst in its upper pole of the left kidney. No hydronephrosis or nephrolithiasis. No solid masses. Aorta: Visualized aorta is normal in caliber at less than 3 cm. distal abdominal aorta is ectatic measuring 2.2 cm is mild fusiform dilation. Calcified plaques are noted. Iliacs: Proximal common iliac arteries are normal in caliber at less than 2.5 cm. IVC: Intrahepatic inferior vena cava is patent. Miscellaneous: No free abdominal fluid. IMPRESSION: 1. Cholelithiasis. No ultrasound findings to suggest acute cholecystitis. 2. 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 3. Moderate left renal atrophy and a 1.4 cm cyst in the superior pole.. 4. Fusiform ectasia of distal abdominal aorta. There is aortic atherosclerosis. Dictated by: Sue Staples M.D. on 07/22/2016 at 18:58 Approved by: Sue Staples M.D. on 07/22/2016 at 18:58 Result Diagram: 07/23/16 0218 07/23/16 021 Microbiology Microbiology MONSTER STREP PNEUMONIAE AG URINE Final 07/22/16-0831 STREP PNEUMO AG POSITIVE Tests performed directly on clinical specimens are intended for screening purposes only and should augment, not replace, culture procedures Please Note: Streptococcus pneumoniae vaccine may cause false positive results in urine in the 48 hours following injection. Hence, it is recommended that the Alere Strep pneumoniae Antigen testing not be performed within five days of receiving the S. pneumoniae vaccine X-Rays, CTs and MRIs PROCEDURE: X-RAY CHEST ONE VIEW, PORTABLE ([id number]) IMPRESSION: Bibasilar pneumonia. Follow up plain films of the chest are recommended to ensure resolution, and to exclude underlying or central malignancy. Dictated by: Timothy Dwyer M.D. on 07/21/2016 at 18:54 Approved by: Timothy Dwyer M.D. on 07/21/2016 at 18:54 PROCEDURE: US ABDOMEN ([id number]) IMPRESSION: 1. Cholelithiasis. No ultrasound findings to suggest acute cholecystitis. 2. 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 3. Moderate left renal atrophy and a 1.4 cm cyst in the superior pole.. 4. Fusiform ectasia of distal abdominal aorta. There is aortic atherosclerosis. Dictated by: Sue Staples M.D. on 07/22/2016 at 18:58 Approved by: Sue Staples M.D. on 07/22/2016 at 18:58 12-lead ECG EKG: sinus rhythm with LBBB and first degree AV block Cardiac Echo Impressions ECHO Interpretation Summary The left ventricle is normal in size but left ventricular systolic function is moderate to severely reduced with the ejection fraction visually estimated to be 25-30%, now with a significant dyssynchronous contraction pattern, consistent with a conduction abnormality and moderate to severe global hypokinesis that is worse in the septum and apex. This is much more pronounced compared to the previous study and compared to the prior exam, left ventricular function has significantly decreased. The right ventricle is normal size and right ventricular systolic function is at the lower limits of normal. This is unchanged compared to the previous study. The right ventricular systolic pressure is estimated at 48 mmHg assuming a right atrial pressure of 3 mm Hg, and is likely significantly lower compared to the previous study. Both atria are normal in size and both atria have mildly decreased in size since the prior echo exam. There is moderate mitral regurgitation and moderate tricuspid regurgitation that appear less prominent compared to the previous study. There is mild aortic stenosis and mild aortic regurgitation that are unchanged compared to the previous study. The ascending aorta is at the upper limits of normal in size but is unchanged compared to the previous study. The patient was in probable sinus tachycardia with heart rates between 100- 120 bpm during the exam which is considerably faster compared to the previous study. Reading Physician:04:29 PM Assessment & Plan Patient is an 80-year-old female with a history of congestive heart failure, hypertension, dyslipidemia, paroxysmal atrial fibrillation, and chronic kidney disease admitted for dyspnea and chest pain; found to have bilateral pneumonia and elevated troponin. Hospital day 2. 1. Acute coronary syndrome, present on admission, active - Cardiology, Dr. Mayfield, consulted We appreciate the input - Likely NSTEMI - Patient with LBBB and 1st degree AV block - Risk factors for ACS includes CAD, dyslipidemia, hypertension, family history - Possible etiologies include CHF exacerbation, pneumonia, CKD - Elevated troponin 0.055. Continue to trend: 0.215, 0.270, 0.293, 0.329, 0.352 - Different treatment options discussed with the patient and her ( Chaparro). They opted for medical management only - Continue cardiac heparin gtt for 48 hours - SL nitro and morphine PRN - Telemetry - Dual antiplatelet therapy per Dr. Mayfield (Aspirin and Clopidogrel) - Continue Heparin drip until 9 pm or tomorrow morning - ECHO done on 07/22/16: Compared to previous study left ventricular function has significantly decreased. EF 20-35%, moderate to severe global hypokinesis worse in the septum and apex. Moderate mitral and tricupsid regurgitation, mild aortic stenosis and regurgitation. 2. Bibasilar pneumonia, acute, present on admission - Chest x-ray reads bibasilar pneumonia - Positive for Strep pneumo urine AG - Azithromycin and ceftriaxone - Negative respiratory viral PCR - Procalcitonin: 0.89, 1.79 3. Chronic systolic and diastolic heart failure, acute, present on admission - Echocardiogram 11/2015 shows estimated EF 40-45%; Septal motion consistent with conduction abnormality. Mid to distal septal hypokinesis, mild inferior hypokinesis. ECHO on 07/22/16 reveals decreased EF of 20-35%. - Pro-BNP 00937 - I/Os, standing daily weights - Lasix 40mg IV x 1 - Continue home carvedilol and isosorbide mononitrate - Will need O2 at home 4. Acute transaminitis, present on admission - Possibly secondary to hepatic congestion secondary to #3, statin toxicity, cholecystitis, etc. - US abdomen done 07/22/16: Cholelithiasis. No ultrasound findings to suggest acute cholecystitis. - Cut down Pravastatin from 80 mg to 40 mg - Consider acute hepatitis panel - AST and ALT much improved today: AST dropped from 129 to 58 and ALT from 143 to 90. Continue to follow with CMP 5. Hypertension with Hypertensive heart disease, chronic, present no admission - Continue amlodipine, carvedilol and isosorbide 6. Dyslipidemia, chronic, present on admission - Lipid panel - Continue home atorvastatin but decrease to 40 mg from 80 mg d/t elevation in AST and ALT 7. Chronic kidney disease, present on admission - Today Cr 2.10. Creatinine was 1.84 on admission and 1.78 yesterday; Query baseline renal function - Avoid nephrotoxins - Follow with CMP 8. Paroxysmal Atrial Fibrillation, chronic, present on admission - Currently NSR - Monitor on tele GI Prophylaxis: Not indicated VTE Prophylaxis: Other (cardiac heparin gtt) Resuscitation Status: DNR/DNI:Do Not Resuscitate/Intubate Attending Statement I reviewed this patients chart, discussed the plan of care with the resident and examined the patient. I agree with the above physical exam and assessment and plan. BEATA CROSS DO Jul 23, 2016 08:02 Jae Felipe DO Jul 23, 2016 15:10
--- NOTE | 2016-07-23 15:46 | PCM.PNCARD ---
Subjective Date of service Jul 23, 2016 Chief Complaint dyspnea History of Present Illness 80 yo W followed by Dr. Jain as outpatient admitted with HF. Subjective: In the past 24 hours, patient feels about the same. Her dyspnea has not improved much since admission. Denies fevers. PROBLEM LIST: # HFrEF: EF 25-30% # Mitral regurgitation, moderate # LBBB # Paroxysmal Atrial fibrillation # HTN s/p left renal artery stent 2008 # CKD # Anemia # HLD Exam Vital Signs Vital Sign - Last Date Time Temp Pulse Resp B/P Pulse Ox O2 Delivery O2 Flow Rate FiO2 07/23/16 11:49 Supplement Oxygen 07/23/16 10:20 36.4 63 18 135/72 98 3.00 Intake and Output 07/22/16 07/22/16 07/23/16 Cumulative From/Thru 15:00 23:00 07:00 07/21/16 21:15 - 07/22/16 20:18 Intake Total 1307 ml 1862 ml Output Total 600 ml 1000 ml Balance 707 ml 862 ml Intake Oral 450 ml 650 ml IV Total 857 ml 1212 ml Output Urine Total 600 ml 1000 ml # Bowel Movements 1 1 General appearance: No apparent distress, elderly, pleasant, cooperative HEET: Normocephalic atraumatic, no scleral icterus, tongue midline, mucous membranes moist Neck: supple Cardiovascular: RRR, 3/6 holosystolic murmur, PMI nondisplaced, no JVD, no LE edema b/l Respiratory: Good aeration, bibasilar crackles Abdomen: Soft, nontender, nondistended, + bowel sounds Lab and Diagnostics Labs Troponin T: 0.055 -> 0.215 -> 0.270 -> 0.293 -> 0.329 -> 0.352 Pro-BNP: 38077 Result Diagram: 07/23/16 0218 07/23/16 0218 X-Rays, CTs and MRIs Echo 07/22/2016: normal sized LV with severely systolic function (EF 25-30%), moderate mitral regurgitation, moderate tricuspid regurgitation Assessment & Plan Assessment 80 yo W followed by Dr. Jain as outpatient admitted with HF. # HFrEF: EF 25-30% on Echo 07/22/2016. Etiology unclear but the recent worsening from 45% to 25-30% could be due to ischemic heart disease or LBBB. Patient appears to have hypervolemia based on severely elevated BNP and CXR findings on bilateral infiltrates. Pneumonia appears less likely given bilaterality and absence of fevers. Plan: - Start hydralazine 25mg tid for better afterload reduction - Continue imdur 60mg daily - Continue carvedilol 12.5mg bid - Continue amlodipine 5mg daily - Increase furosemide from 20mg IV daily to 40mg daily # Troponin elevation: troponin continues to rise. Suspect this is due to HF but acute coronary syndrome also possible. Plan: - Continue to trend troponins until peak reached - Continue aspirin 81mg daily - Continue clopidogrel 75mg daily - Continue atorvastatin 40mg qhs - Continue heparin gtt for now. Will also monitor Hb as patient does have moderate degree of anemia, which has been stable - Given CKD and anemia, patient not an ideal angiogram candidate. Will consider non-invasive testing prior to discharge for risk stratification # Mitral regurgitation, moderate: stable on recent echo. Continue to monitor. # Paroxysmal Atrial fibrillation: in sinus rhythm. # HTN s/p left renal artery stent 2008: BP mildly elevated. Patient would benefit from aggressive BP control, with goal BP < 120/80. # CKD: mildly rising BUN. Cr stable. Will do better BP control and gentle diuresis as above. # Anemia: unclear. Defer to primary team for further evaluation. # HLD: statin as above Problems: Pain Evaluation: Adequate Pain Control GI Prophylaxis: Not indicated VTE Prophylaxis: Other (cardiac heparin gtt) Resuscitation Status: DNR/DNI:Do Not Resuscitate/Intubate Miesha Rodríguez MD Jul 23, 2016 15:46
[2016-07-23 16:21] LABS: TROPONIN T 0.387 ug/L (0.0-0.011)
--- NOTE | 2016-07-23 16:40 | NUR ---
IV lasix Associate Account Director here at the bed side and noted new orders for Lasix. paged manager hi urine out 600CC per orders.
--- NOTE | 2016-07-23 22:25 | NUR ---
PTT lab called with PTT results of 58.9, protocol calls for 25 units added to 825 units, new rate of 850 units started. Will continue to monitor until next PTT.
[2016-07-24] VITALS (7 sets, daily range): BP systolic 127–162; BP diastolic 62–74; PULSE 68–110; RESP 16–18; O2SAT 94–98
--- NOTE | 2016-07-24 02:16 | NUR ---
Troponin Pt had critical value lab: troponin 0.384, slightly below last one. Paged Night hospitalist with info, call returned, no new orders at this time. Will continue to monitor.
--- NOTE | 2016-07-24 03:15 | NUR ---
PTT PTT lab value of 56.9, heparin protocol to raise 25 units to 875 units/hr. No s/s of bleeding, will continue to monitor.
[2016-07-24 06:51] LABS: Unsaturated Iron Binding 154.8 ug/dL
[2016-07-24 07:28] LABS: TROPONIN T 0.362 ug/L (0.0-0.011)
[2016-07-24] MEDS: Azithromycin Inj 500 MG in Dextrose 5% w/Vial Mate 250 ML IV SCH (08:40)
[2016-07-24] MEDS: Furosemide 10 mg/mL 4 mL Inj IVPUSH SCH (08:41)
[2016-07-24] MEDS: Isosorbide Mononitrate 60 mg ER24 Tablet PO SCH (08:43)
--- NOTE | 2016-07-24 10:53 | NUR ---
Telemetry Update: Afib Patient has been Sinus Rhythm 50-80s with an IVCD, PACs and occasional PVCs. At 08:00 patient converted to Afib 80-110s. SYLVIE pardo.
[2016-07-24] MEDS: cefTRIAXone Inj 2,000 MG in IV Premix 1 EACH IV SCH (11:06)
--- NOTE | 2016-07-24 11:43 | DRSVH ---
PROCEDURE: X-RAY CHEST, TWO VIEWS ([id number]) INDICATIONS: 80 year-old female with dyspnea. TECHNIQUE: 2 views of the chest were acquired. COMPARISON: [facility], CR, XR CHEST 1VW (PORTABLE), 07/21/2016, 18:33. [facility], CR, XR CHEST 1VW (PORTABLE), 11/25/2015, 22:32. [facility], CR, CHEST 1VW, 2006, 11:16. FINDINGS: Surgical changes and devices: None. Lungs and pleura: No acute airspace opacities. Calcifi right mid lung granuloma is unchanged. There i s trace dependent left pleural effusion on the lateral projection. No pneumothorax. Mediastinum: Mediastinal contours are normal. There is mild cardiomegaly. There is aortic atheroscl erosis. Bones and chest wall: No suspicious bony abnormalities. Soft tissues appear unremarkable. IMPRESSION: 1. Cardiomegaly is new since 2006. 2. Pulmonary remote granulomatous disease. Dictated by: Ketan Kruse M.D. on 07/24/2016 at 11:41 Approved by: Ketan Kruse M.D. on 07/24/2016 at 11:41
[2016-07-24] MEDS: Heparin 25K Unit/500mL 0.45 NS 25,000 UNIT in IV Premix 1 EACH IV SCH (12:23)
--- NOTE | 2016-07-24 14:01 | PCM.PNCARD ---
Subjective Date of service Jul 24, 2016 Chief Complaint dyspnea History of Present Illness 80 yo W followed by Dr[address] Jain as outpatient admitted with HF. Subjective: Patient went into atrial fibrillation today morning. Overall, patient feels about the same. She continues to have dyspnea and is on oxygen. She is anxious to go home. PROBLEM LIST: # HFrEF: EF 25-30% # Mitral regurgitation, moderate # LBBB # Paroxysmal Atrial fibrillation # HTN s/p left renal artery stent 2008 # CKD # Anemia # HLD Exam Vital Signs Vital Sign - Last Date Time Temp Pulse Resp B/P Pulse Ox O2 Delivery O2 Flow Rate FiO2 07/24/16 09:22 110 07/24/16 08:35 Supplement Oxygen 07/24/16 08:35 36.6 18 127/74 98 3.00 Intake and Output 07/23/16 07/23/16 07/24/16 Cumulative From/Thru 15:00 23:00 07:00 07/21/16 21:15 - 07/24/16 05:19 Intake Total 500 ml 2500 ml 350 ml 5212 ml Output Total 300 ml 1001 ml 540 ml 2841 ml Balance 200 ml 1499 ml -190 ml 2371 ml Intake Oral 500 ml 2500 ml 350 ml 4000 ml IV Total 1212 ml Output Urine Total 300 ml 1000 ml 540 ml 2840 ml Urine/Stool Mix 1 ml 1 ml # Bowel Movements 1 General appearance: No apparent distress, elderly, pleasant, cooperative HEET: Normocephalic atraumatic, no scleral icterus, tongue midline, mucous membranes moist Neck: supple Cardiovascular: RRR, 3/6 holosystolic murmur, PMI nondisplaced, no JVD, no LE edema b/l Respiratory: Good aeration, bibasilar crackles Abdomen: Soft, nontender, nondistended, + bowel sounds Lab and Diagnostics Result Diagram: 07/23/16 0218 07/24/16 0540 Assessment & Plan Assessment 80 yo W followed by Dr. Jain as outpatient admitted with HF. # HFrEF: EF 25-30% on Echo 07/22/2016. Etiology unclear but the recent worsening from 45% to 25-30% could be due to ischemic heart disease or LBBB. Patient appears to have hypervolemia based on severely elevated BNP but repeat CXR 07/24/2016 showed no obvious pulmonary edema that could explain her dyspnea. She has moderate urine output with furosemide 40mg IV on 07/23 and . Pneumonia appears less likely given bilaterality and absence of fevers. Anemia could be playing some role in her dyspnea as well. Plan: - Recheck BNP - Uptitrate hydralazine from 25mg tid to 75mg tid for better afterload reduction - Continue imdur 60mg daily - Continue carvedilol 12.5mg bid - Continue amlodipine 5mg daily - Decrease furosemide from 40mg IV daily to 20mg daily # Troponin elevation: peaked at 0.387 and now stable to downtrending. Suspect this is due to HF but acute coronary syndrome also possible. Plan: - Continue to trend troponins until peak reached - Continue aspirin 81mg daily - Continue clopidogrel 75mg daily - Continue atorvastatin 40mg qhs - Continue heparin gtt for now. Will also monitor Hb as patient does have moderate degree of anemia, which has been stable - Given CKD and anemia, patient not an ideal angiogram candidate. Will consider non-invasive testing prior to discharge for risk stratification # Mitral regurgitation, moderate: stable on recent echo. Continue to monitor. # Paroxysmal Atrial fibrillation: in atrial fibrillation today with HR in the 80s-100s. - Will continue carvedilol for rate control as above. - Continue heparin gtt to reduce risk of stroke # HTN s/p left renal artery stent 2008 with moderately atrophic left kidney: BP mildly elevated. Patient would benefit from aggressive BP control, with goal BP < 120/80. # CKD: mildly rising BUN. Cr stable. Will do better BP control and gentle diuresis as above. # Anemia: unclear. Defer to primary team for further evaluation. # HLD: statin as above Problems: Pain Evaluation: Adequate Pain Control GI Prophylaxis: Not indicated VTE Prophylaxis: Other (cardiac heparin gtt) Resuscitation Status: DNR/DNI:Do Not Resuscitate/Intubate Miesha Rodríguez MD Jul 24, 2016 14:01
[2016-07-24 16:05] LABS: BASOPHILS % (AUTO) 0.3 % (0-3); EOSINOPHILS % (AUTO) 4.4 % (0-5); MONOCYTES % (AUTO) 10.2 % (4-12); Mean Corpuscular Hemoglobin 31.2 pg (27.0-35.0); Mean Corpuscular Volume 92.4 fL (81-100); Platelet Count 146 bil/L (150-400)
--- NOTE | 2016-07-24 17:22 | NUR ---
HEART RATE P-Patient went fro SR to A-fib at 0800, has slowly increased in rate from 80-90's to current rate of 115. I- MD aware, Heparin drip restarted, and medications changed. E-Patient continues to denies chest pain and is asymptomatic. LABS-Trop 0.038, BNP 69769 NEURO- Appears confused at times, mildly anxiety. CVS- See above note. PLUM-RA, Strep PNE GI-BM today GI- Frequency but patient confused may be flushing without recording. Reenforced IV- Heparin 925units PTT 67, nest PTT 0000 08/03/16. PLAN- Stabilize heart rate and condition.
--- NOTE | 2016-07-24 17:29 | PCM.PNMED ---
Subjective Date of Service Jul 24, 2016 Subjective No overnight events. Patient states she is feeling better, denies chest pain, shortness of breath, N/ V, abdominal pain.She states her body is hurting from laying in bed all the time. She hopes to go home today or tomorrow. Per nurse, she went form [facility] to [facility] at around 8 am. Exam Vital Signs Vital Sign - Last Date Time Temp Pulse Resp B/P Pulse Ox O2 Delivery O2 Flow Rate FiO2 07/24/16 14:50 36.7 90 16 127/72 94 Room Air 07/24/16 08:35 3.00 Intake and Output 07/23/16 07/23/16 07/24/16 Cumulative From/Thru 15:00 23:00 07:00 07/21/16 21:15 - 07/24/16 05:19 Intake Total 500 ml 2500 ml 350 ml 5212 ml Output Total 300 ml 1001 ml 540 ml 2841 ml Balance 200 ml 1499 ml -190 ml 2371 ml Intake Oral 500 ml 2500 ml 350 ml 4000 ml IV Total 1212 ml Output Urine Total 300 ml 1000 ml 540 ml 2840 ml Urine/Stool Mix 1 ml 1 ml # Bowel Movements 1 Exam WNWD, A&O x 3, NAD Sclera anicteric Neck supple, no JVD Regular rate and rhythm Lungs CTAB Abdomen soft, non-tender to palpation at the RUQ Lower extremities with trace pitting edema L>R, but much improved Lab and Diagnostics Result Diagram: 07/24/16 1530 07/24/16 1530 Microbiology Microbiology MONSTER STREP PNEUMONIAE AG URINE Final 07/22/16-0831 STREP PNEUMO AG POSITIVE Tests performed directly on clinical specimens are intended for screening purposes only and should augment, not replace, culture procedures Please Note: Streptococcus pneumoniae vaccine may cause false positive results in urine in the 48 hours following injection. Hence, it is recommended that the Alere Strep pneumoniae Antigen testing not be performed within five days of receiving the S. pneumoniae vaccine X-Rays, CTs and MRIs PROCEDURE: X-RAY CHEST ONE VIEW, PORTABLE ([id number]) IMPRESSION: Bibasilar pneumonia. Follow up plain films of the chest are recommended to ensure resolution, and to exclude underlying or central malignancy. Dictated by: iTmothy Dwyer M.D. on 07/21/2016 at 18:54 Approved by: Timothy Dwyer M.D. on 07/21/2016 at 18:54 PROCEDURE: US ABDOMEN ([id number]) IMPRESSION: 1. Cholelithiasis. No ultrasound findings to suggest acute cholecystitis. 2. 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 3. Moderate left renal atrophy and a 1.4 cm cyst in the superior pole.. 4. Fusiform ectasia of distal abdominal aorta. There is aortic atherosclerosis. Dictated by: Sue Staples M.D. on 07/22/2016 at 18:58 Approved by: Sue Staples M.D. on 07/22/2016 at 18:58 PROCEDURE: X-RAY CHEST, TWO VIEWS ([id number]) IMPRESSION: 1. Cardiomegaly is new since 2006. 2. Pulmonary remote granulomatous disease. Dictated by: Ketan Kruse M.D. on 07/24/2016 at 11:41 Approved by: Ketan Kruse M.D. on 07/24/2016 at 11:41 12-lead ECG EKG: sinus rhythm with LBBB and first degree AV block Cardiac Echo Impressions ECHO Interpretation Summary The left ventricle is normal in size but left ventricular systolic function is moderate to severely reduced with the ejection fraction visually estimated to be 25-30%, now with a significant dyssynchronous contraction pattern, consistent with a conduction abnormality and moderate to severe global hypokinesis that is worse in the septum and apex. This is much more pronounced compared to the previous study and compared to the prior exam, left ventricular function has significantly decreased. The right ventricle is normal size and right ventricular systolic function is at the lower limits of normal. This is unchanged compared to the previous study. The right ventricular systolic pressure is estimated at 48 mmHg assuming a right atrial pressure of 3 mm Hg, and is likely significantly lower compared to the previous study. Both atria are normal in size and both atria have mildly decreased in size since the prior echo exam. There is moderate mitral regurgitation and moderate tricuspid regurgitation that appear less prominent compared to the previous study. There is mild aortic stenosis and mild aortic regurgitation that are unchanged compared to the previous study. The ascending aorta is at the upper limits of normal in size but is unchanged compared to the previous study. The patient was in probable sinus tachycardia with heart rates between 100- 120 bpm during the exam which is considerably faster compared to the previous study. Reading Physician:04:29 PM Assessment & Plan Patient is an 80-year-old female with a history of congestive heart failure, hypertension, dyslipidemia, paroxysmal atrial fibrillation, and chronic kidney disease admitted for dyspnea and chest pain; found to have bilateral pneumonia and elevated troponin. Hospital day 2. 1. Acute coronary syndrome, present on admission, active - Cardiology, Dr. Mayfield, consulted We appreciate the input - Likely NSTEMI - Patient with LBBB and 1st degree AV block - Risk factors for ACS includes CAD, dyslipidemia, hypertension, family history - Possible etiologies include CHF exacerbation, pneumonia, CKD - Elevated troponin 0.055. Continue to trend: 0.215, 0.270, 0.293, 0.329, 0.352 , 0.384, 0.362 - Different treatment options discussed with the patient and her ( Rauljose). They opted for medical management only - Continue cardiac heparin gtt for now per cardiology - SL nitro and morphine PRN - Telemetry - Dual antiplatelet therapy per Dr. Mayfield (Aspirin and Clopidogrel) - ECHO done on 07/22/16: Compared to previous study left ventricular function has significantly decreased. EF 20-35%, moderate to severe global hypokinesis worse in the septum and apex. Moderate mitral and tricupsid regurgitation, mild aortic stenosis and regurgitation. - Potassium 3.3 this morning, Potassium Chloride 40 meq BID ordered, Potassium improved to 3.5, continue to monitor -Hydralazine added to reduce afterload 2. Bibasilar pneumonia, acute, present on admission - Chest x-ray reads bibasilar pneumonia - Positive for Strep pneumo urine AG - Azithromycin and ceftriaxone - Negative respiratory viral PCR - Procalcitonin: 0.89, 1.79 - Repeat chest x-ray does not show bibasilar opacities - Patient completely asymptomatic - Consider stopping Rocephin tomorrow and continue Azithromycin for 2 more days 3. Chronic systolic and diastolic heart failure, acute, present on admission - Echocardiogram 11/2015 shows estimated EF 40-45%; Septal motion consistent with conduction abnormality. Mid to distal septal hypokinesis, mild inferior hypokinesis. ECHO on 07/22/16 reveals decreased EF of 20-35%. - Pro-BNP 97348. Repeat pro-BNP 07/24/16: 35287, 65196 - I/Os, standing daily weights - Lasix 20mg IV qd - Continue home carvedilol and isosorbide mononitrate - Will need O2 at home - Per cardiology: Hydralazine 75 TID for better afterload reduction, continue Imdur 60 mg qd, continue Carvedilol 12.5 mg BID, continue Amlodipine 2 mg qd 4. Acute transaminitis, present on admission - Possibly secondary to hepatic congestion secondary to #3, statin toxicity, cholecystitis, etc. - US abdomen done 07/22/16: Cholelithiasis. No ultrasound findings to suggest acute cholecystitis. - Cut down Pravastatin from 80 mg to 40 mg - Consider acute hepatitis panel - AST and ALT almost back to normal. Continue to follow with CMP 5. Hypertension with Hypertensive heart disease, chronic, present no admission - Continue amlodipine, carvedilol and isosorbide. Hydralazine added 6. Dyslipidemia, chronic, present on admission - Lipid panel - Continue home atorvastatin but decrease to 40 mg from 80 mg d/t elevation in AST and ALT 7. Chronic kidney disease, present on admission - Today Cr 2.04. Creatinine was 1.84 on admission, Query baseline renal function - Avoid nephrotoxins - Follow with CMP 8. Paroxysmal Atrial Fibrillation, chronic, present on admission - Currently NSR - Monitor on tele GI Prophylaxis: Not indicated VTE Prophylaxis: Other (cardiac heparin gtt) Resuscitation Status: DNR/DNI:Do Not Resuscitate/Intubate Attending Statement I reviewed this patients chart, discussed the plan of care with the resident and examined the patient. I agree with the above physical exam and assessment and plan. BEATA CROSS DO Jul 24, 2016 17:29 Jae Felipe DO Jul 25, 2016 16:15
[2016-07-25] VITALS (9 sets, daily range): BP systolic 127–172; BP diastolic 63–81; PULSE 68–102; RESP 16; O2SAT 93–96
[2016-07-25] MEDS: Heparin 5,000 Unit/mL Inj IVPUSH PRN ×3 (02:03→16:01)
[2016-07-25] MEDS ORDERED: 0.9% Sodium Chloride 250 ML ONE (04:18)
[2016-07-25] MEDS: Furosemide 10 mg/mL 4 mL Inj IVPUSH SCH (08:37)
[2016-07-25] MEDS: Isosorbide Mononitrate 60 mg ER24 Tablet PO SCH (08:40)
[2016-07-25] MEDS: Azithromycin Inj 500 MG in Dextrose 5% w/Vial Mate 250 ML IV SCH (08:42)
--- NOTE | 2016-07-25 09:06 | NUR ---
CINDY signed. KATIE Hernández
[2016-07-25 09:19] LABS: BASOPHILS % (AUTO) 0.5 % (0-3); EOSINOPHILS % (AUTO) 5.1 % (0-5); MONOCYTES % (AUTO) 7.6 % (4-12); Mean Corpuscular Hemoglobin 31.4 pg (27.0-35.0); Mean Corpuscular Volume 93.8 fL (81-100); NEUTROPHILS % (AUTO) 64.5 % (40-74); Platelet Count 174 bil/L (150-400)
[2016-07-25 10:13] LABS: Magnesium 1.6 mg/dL (1.6-2.6); Phosphorus 2.5 mg/dL (2.5-4.9)
[2016-07-25] MEDS: cefTRIAXone Inj 2,000 MG in IV Premix 1 EACH IV SCH (10:24)
[2016-07-25 10:28] LABS: TROPONIN T 0.458 ug/L (0.0-0.011)
[2016-07-25] MEDS: Heparin 25K Unit/500mL 0.45 NS 25,000 UNIT in IV Premix 1 EACH IV SCH ×2 (10:38→16:00)
--- NOTE | 2016-07-25 11:24 | PCM.PNCARD ---
Subjective Date of service Jul 25, 2016 Chief Complaint dyspnea History of Present Illness 80 yo W followed by Dr. Jain as outpatient admitted with HF. Subjective: Patient converted to sinus rhythm yesterday from AF. She is off oxygen and is breathing comfortably. She is anxious to go home. PROBLEM LIST: # HFrEF: EF 25-30% # Mitral regurgitation, moderate # LBBB # Paroxysmal Atrial fibrillation # HTN s/p left renal artery stent 2008 # CKD # Anemia # HLD Exam Vital Signs Vital Sign - Last Date Time Temp Pulse Resp B/P Pulse Ox O2 Delivery O2 Flow Rate FiO2 07/25/16 08:28 36.7 68 16 127/63 96 Room Air 07/25/16 06:25 3.00 Intake and Output 07/24/16 07/24/16 07/25/16 Cumulative From/Thru 15:00 23:00 07:00 07/21/16 21:15 - 07/25/16 06:24 Intake Total 850 ml 300 ml 6362 ml Output Total 625 ml 900 ml 4366 ml Balance 225 ml -600 ml 1996 ml Intake Oral 850 ml 4850 ml IV Total 300 ml 1512 ml Output Urine Total 625 ml 900 ml 4365 ml Urine/Stool Mix 1 ml # Bowel Movements 1 2 General appearance: No apparent distress, elderly, pleasant, cooperative HEET: Normocephalic atraumatic, no scleral icterus, tongue midline, mucous membranes moist Neck: supple Cardiovascular: RRR, 3/6 holosystolic murmur, PMI nondisplaced, no JVD, no LE edema b/l Respiratory: Good aeration, CTAB Abdomen: Soft, nontender, nondistended, + bowel sounds Lab and Diagnostics Result Diagram: 07/25/16 0847 07/25/16 0847 X-Rays, CTs and MRIs Echo 07/22/2016: normal sized LV with severely systolic function (EF 25-30%), moderate mitral regurgitation, moderate tricuspid regurgitation Assessment & Plan Assessment 80 yo W followed by Dr. Jain as outpatient admitted with HF. # HFrEF: EF 25-30% on Echo 07/22/2016. Etiology unclear but the recent worsening from 45% to 25-30% could be due to ischemic heart disease or LBBB. Patient appears to have hypervolemia based on severely elevated BNP but repeat CXR 07/24/2016 showed no obvious pulmonary edema that could explain her dyspnea. She has moderate urine output with furosemide 40mg IV on 07/23 and . Pneumonia appears less likely given bilaterality and absence of fevers. Anemia could be playing some role in her dyspnea as well. Plan: - Uptitrate hydralazine from 75mg tid to 100mg tid for better afterload reduction - Continue imdur 60mg daily - Continue carvedilol 12.5mg bid - Continue amlodipine 5mg daily - Continue furosemide 20mg daily # Troponin elevation: troponin miguel angel to 0.458 today. Suspect this is due to HF but acute coronary syndrome also possible. Plan: - Continue to trend troponins until peak reached - Continue aspirin 81mg daily - Continue clopidogrel 75mg daily - Continue atorvastatin 40mg qhs - Continue heparin gtt for now. Will also monitor Hb as patient does have moderate degree of anemia, which has been stable - Given CKD and anemia, patient not an ideal angiogram candidate. Will consider non-invasive testing prior to discharge for risk stratification # Mitral regurgitation, moderate: stable on recent echo. Continue to monitor. # Paroxysmal Atrial fibrillation: in sinus rhythm today - Will continue carvedilol as above. - Continue heparin gtt to reduce risk of stroke # HTN s/p left renal artery stent 2008 with moderately atrophic left kidney: BP mildly elevated. Patient would benefit from aggressive BP control, with goal BP < 120/80. # CKD: BUN and Cr stable. Will do better BP control and gentle diuresis as above. # Anemia: unclear. Defer to primary team for further evaluation. # HLD: statin as above Problems: Pain Evaluation: Adequate Pain Control GI Prophylaxis: Not indicated VTE Prophylaxis: Other (cardiac heparin gtt) Resuscitation Status: DNR/DNI:Do Not Resuscitate/Intubate Miesha Rodríguez MD Jul 25, 2016 11:24
--- NOTE | 2016-07-25 12:37 | NUR ---
AMBULATION P-Patient needs to be ambulated x3, monitor with pulse ox. I- Ambulated patient 100ft. E- Patient tolerated walk well O2 sat 95% RA at start and 95% at end of walk, no SOB, HR SR 70,s per compliance monitor. Addendum: 07/25/16 at 1828 by CRESENCIO SOLER RN Patient Ambulated second time. HR and O2 sats have been stable through out shift. Patient not eating much dinner. Heparin drip currently 1250 units/hr increased from last PTT of 200 units.
--- NOTE | 2016-07-25 13:17 | NUR ---
Evaluation completed. Please go to "Notes" then click on "Assessments and Notes" (bottom left corner of screen). Then select appropriate discipline tab on top of screen.
--- NOTE | 2016-07-25 15:16 | PCM.PNMED ---
Subjective Date of Service Jul 25, 2016 Subjective Overnight: No acute events Today: Denies SOB, CP, abdominal pain; tolerating po intake well. C/o generalized body aches. Exam Vital Signs Vital Sign - Last Date Time Temp Pulse Resp B/P Pulse Ox O2 Delivery O2 Flow Rate FiO2 07/25/16 13:25 36.4 69 16 147/64 96 Room Air 07/25/16 06:25 3.00 Intake and Output 07/24/16 07/24/16 07/25/16 Cumulative From/Thru 15:00 23:00 07:00 07/21/16 21:15 - 07/25/16 06:24 Intake Total 850 ml 300 ml 6362 ml Output Total 625 ml 900 ml 4366 ml Balance 225 ml -600 ml 1996 ml Intake Oral 850 ml 4850 ml IV Total 300 ml 1512 ml Output Urine Total 625 ml 900 ml 4365 ml Urine/Stool Mix 1 ml # Bowel Movements 1 2 Exam General: AAOx3; pleasant and cooperative; no acute distress HENT: Atraumatic, normocephalic; sclera anicteric; mucus membranes moist Neck: Soft, trachea midline Cardiac: Regular rate and rhythm; No murmurs appreciated Respiratory: Adequate air flow all bacon; no coarse sounds; no wheeze Abdomen: Soft, nontender, nondistended Extremities: No edema Skin: Warm, dry Neuro: CNII-XII grossly intact: speech normal; facial expressions symmetric Psych: Appropriate mood, affect, and responses to questioning; good insight and judgment IVs and Medications Medications Reviewed: Medications were reviewed in detail Lab and Diagnostics Result Diagram: 07/25/16 0847 07/25/16 0847 Microbiology Microbiology MONSTER STREP PNEUMONIAE AG URINE Final 07/22/16-0831 STREP PNEUMO AG POSITIVE Tests performed directly on clinical specimens are intended for screening purposes only and should augment, not replace, culture procedures Please Note: Streptococcus pneumoniae vaccine may cause false positive results in urine in the 48 hours following injection. Hence, it is recommended that the Alere Strep pneumoniae Antigen testing not be performed within five days of receiving the S. pneumoniae vaccine X-Rays, CTs and MRIs PROCEDURE: X-RAY CHEST ONE VIEW, PORTABLE ([id number]) IMPRESSION: Bibasilar pneumonia. Follow up plain films of the chest are recommended to ensure resolution, and to exclude underlying or central malignancy. Dictated by: Timothy Dwyer M.D. on 07/21/2016 at 18:54 Approved by: Timothy Dwyer M.D. on 07/21/2016 at 18:54 PROCEDURE: US ABDOMEN ([id number]) IMPRESSION: 1. Cholelithiasis. No ultrasound findings to suggest acute cholecystitis. 2. 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 3. Moderate left renal atrophy and a 1.4 cm cyst in the superior pole.. 4. Fusiform ectasia of distal abdominal aorta. There is aortic atherosclerosis. Dictated by: Sue Staples M.D. on 07/22/2016 at 18:58 Approved by: Sue Staples M.D. on 07/22/2016 at 18:58 PROCEDURE: X-RAY CHEST, TWO VIEWS ([id number]) IMPRESSION: 1. Cardiomegaly is new since 2006. 2. Pulmonary remote granulomatous disease. Dictated by: Ketan Kruse M.D. on 07/24/2016 at 11:41 Approved by: Ketan Kruse M.D. on 07/24/2016 at 11:41 12-lead ECG EKG: sinus rhythm with LBBB and first degree AV block Cardiac Echo Impressions ECHO Interpretation Summary The left ventricle is normal in size but left ventricular systolic function is moderate to severely reduced with the ejection fraction visually estimated to be 25-30%, now with a significant dyssynchronous contraction pattern, consistent with a conduction abnormality and moderate to severe global hypokinesis that is worse in the septum and apex. This is much more pronounced compared to the previous study and compared to the prior exam, left ventricular function has significantly decreased. The right ventricle is normal size and right ventricular systolic function is at the lower limits of normal. This is unchanged compared to the previous study. The right ventricular systolic pressure is estimated at 48 mmHg assuming a right atrial pressure of 3 mm Hg, and is likely significantly lower compared to the previous study. Both atria are normal in size and both atria have mildly decreased in size since the prior echo exam. There is moderate mitral regurgitation and moderate tricuspid regurgitation that appear less prominent compared to the previous study. There is mild aortic stenosis and mild aortic regurgitation that are unchanged compared to the previous study. The ascending aorta is at the upper limits of normal in size but is unchanged compared to the previous study. The patient was in probable sinus tachycardia with heart rates between 100- 120 bpm during the exam which is considerably faster compared to the previous study. Reading Physician:04:29 PM Assessment & Plan Patient is an 80-year-old female with a history of congestive heart failure, hypertension, dyslipidemia, paroxysmal atrial fibrillation, and chronic kidney disease, admitted for dyspnea and chest pain; found to have bilateral S. pneumoniae pneumonia and elevated troponin indicative of NSTEMI. Heparin gtt initiated, antibiotics initiated. - Hospital day 5 1. Acute coronary syndrome, present on admission. Ongoing - Cardiology consulted- We appreciate the input and recommendations - Likely NSTEMI - Patient with LBBB and 1st degree AV block - Risk factors for ACS includes: CAD, dyslipidemia, hypertension, family history - Possible etiologies include: CHF exacerbation, pneumonia, CKD - Elevated troponin continue; trend for plateau - Different treatment options discussed with the patient and her (by Dr. Mayfield). They opted for medical management only - Continue cardiac heparin gtt for now per cardiology - SL nitro and morphine PRN - Telemetry - Dual antiplatelet therapy per Dr. Mayfield (Aspirin and Clopidogrel) - ECHO done on 07/22/16: Compared to previous study left ventricular function has significantly decreased. EF 20-35%, moderate to severe global hypokinesis worse in the septum and apex. Moderate mitral and tricupsid regurgitation, mild aortic stenosis and regurgitation. 2. Bibasilar pneumonia, acute, present on admission. Resolving - Chest x-ray reads bibasilar pneumonia - Positive for Strep pneumo urine AG - Negative respiratory viral PCR - Procalcitonin: 0.89, 1.79 - Repeat chest x-ray does not show bibasilar opacities - Patient completely asymptomatic - Antibiotics stopped: Recv'd 5d azithromycin 250mg daily, ceftriaxone 2g daily - PCT ordered to evaluate; may restart abx based on results 3. Chronic systolic and diastolic heart failure, acute, present on admission. Presumed stable - Echocardiogram 11/2015 shows estimated EF 40-45%; Septal motion consistent with conduction abnormality. Mid to distal septal hypokinesis, mild inferior hypokinesis. ECHO on 07/22/16 reveals decreased EF of 20-35%. - Pro-BNP 16024. Repeat pro-BNP 07/24/16: 85347, 19344 - I/Os, standing daily weights - Lasix 20mg IV qd - Continue home carvedilol and isosorbide mononitrate - Per cardiology: Hydralazine 100 TID for better afterload reduction, continue Imdur 60 mg qd, continue Carvedilol 12.5 mg BID, continue Amlodipine 2 mg qd 4. Acute transaminitis, present on admission. Resolved - Possibly secondary to hepatic congestion secondary to #3, statin toxicity, cholecystitis - US abdomen done 07/22/16: Cholelithiasis. No ultrasound findings to suggest acute cholecystitis. - Cut down Pravastatin from 80 mg to 40 mg - Acute hepatitis panel: negative - AST and ALT almost back to within range. Continue to follow with daily CMP 5. Hypertension with Hypertensive heart disease, chronic, present no admission - Continue amlodipine, carvedilol, hydralazine and isosorbide 6. Dyslipidemia, chronic, present on admission - Continue home atorvastatin but decrease to 40 mg from 80 mg d/t elevation in AST and ALT 7. Chronic kidney disease, present on admission. Presumed stable - Today Cr 2.04. Creatinine was 1.84 on admission, Query baseline renal function - Avoid nephrotoxins - Follow with CMP 8. Paroxysmal Atrial Fibrillation, chronic, present on admission. Presumed stable - Currently NSR - Monitor on tele 9. Generalized aches and malaise, not present on admission. Ongoing - Likely secondary to decreased activity and bedrest - Encourage ambulation/ up with meals - Rapid flu to eval; many visitors to room and influenza epidemic present in area - PRN: fever/antiemetics/bowel/pain - DVT: hep gtt - DIET: Heart healthy - GI: H2B - CODE: DNR/DNI - High risk Rx: Hep gtt Dispo: Due to current cardiac condition, heparin gtt continues. Anticipated DC 1 -2 days. No anticipated needs. Pt cleared for home with no additional therapies. On room air, home o2 need unlikely. Pain Evaluation: Adequate Pain Control GI Prophylaxis: Not indicated VTE Prophylaxis: Other (cardiac heparin gtt) Resuscitation Status: DNR/DNI:Do Not Resuscitate/Intubate Attending Statement I reviewed this patients chart, discussed the plan of care with the resident and examined the patient. I agree with the above physical exam and assessment and plan. Yen Esteban DO Jul 25, 2016 15:16 Jae Felipe DO Jul 25, 2016 16:17
--- NOTE | 2016-07-25 20:32 | NUR ---
chest pain patient with chest discomfort. rates 6. mid apical. non radiating. ordered ekg. called RT. states "i fiddled with my blankets too much." Addendum: 07/25/16 at 2054 by BIMAL NEAL RN notified night resident placed on oxygen 2 liters. resident to bedside Addendum: 07/25/16 at 2114 by BIMAL NEAL RN medicated with morphine 1mg iv push.rates pain to chest a 5. vs stable spoke with resident. plan to give evening medications. care ongoing.
[2016-07-26] VITALS (8 sets, daily range): BP systolic 135–161; BP diastolic 58–71; PULSE 64–83; RESP 16–18; O2SAT 94–97
--- NOTE | 2016-07-26 02:28 | NUR ---
CARE UDPATE patient without further episode of chest discomfort resting comfortably, supine hob 30 degrees
[2016-07-26 07:06] LABS: Magnesium 1.5 mg/dL (1.6-2.6); Phosphorus 3.8 mg/dL (2.5-4.9)
[2016-07-26] MEDS ORDERED: [UNRECOGNIZED DRUG - OTHER] IM ONE (08:30)
--- NOTE | 2016-07-26 09:02 | NUR ---
Social Work-readiness for discharge: Data:EMR Reviewed. P is on day 5 of hospitalization for bibasal pneumonia per H&P. Pt is one to two days out from discharge. Pt resides at home with her and remains independent with ADLs. Pt worked with PT yesterday, ambulated 100ft SBA, PT has cleared pt for home no needs. Pt and in agreement with plan. Pt's to provide transport home at discharge. No anticipated discharge needs. SW will continue to follow if needs arise. Assessment:Pt who is independent at baseline. Plan:Pt to discharge home when medically stable via POV. No anticipated discharge needs. SW will continue to follow if needs arise. KATIE Hernández
[2016-07-26] MEDS: Furosemide 10 mg/mL 4 mL Inj IVPUSH SCH (09:30)
[2016-07-26] MEDS: Isosorbide Mononitrate 60 mg ER24 Tablet PO SCH (09:35)
--- NOTE | 2016-07-26 12:16 | PCM.PNCARD ---
Subjective Date of service Jul 26, 2016 Chief Complaint dyspnea History of Present Illness 80 [address] W [address] Dr[address] Jain as outpatient admitted with HF. Subjective: Patient had chest pain last night at rest that resolved with nitro SL X1. She did walk in the hallway yesterday without much difficulty. She is off oxygen now. PROBLEM LIST: # HFrEF: EF 25-30% # Mitral regurgitation, moderate # LBBB # Paroxysmal Atrial fibrillation # HTN s/p left renal artery stent 2008 and left moderately atrophic kidney # CKD # Anemia # HLD Exam Vital Signs Vital Sign - Last Date Time Temp Pulse Resp B/P Pulse Ox O2 Delivery O2 Flow Rate FiO2 07/26/16 10:26 36.5 74 18 143/67 95 Room Air 07/26/16 05:08 2.00 Intake and Output 07/25/16 07/25/16 07/26/16 Cumulative From/Thru 15:00 23:00 07:00 07/21/16 21:15 - 07/26/16 06:23 Intake Total 2170 ml 930 ml 9462 ml Output Total 850 ml 1100 ml 6316 ml Balance 1320 ml -170 ml 3146 ml Intake Oral 570 ml 650 ml 6070 ml IV Total 1600 ml 280 ml 3392 ml Output Urine Total 850 ml 1100 ml 6315 ml Urine/Stool Mix 1 ml # Bowel Movements 2 4 General appearance: No apparent distress, elderly, pleasant, cooperative HEET: Normocephalic atraumatic, no scleral icterus, tongue midline, mucous membranes moist Neck: supple Cardiovascular: RRR, 3/6 holosystolic murmur, PMI nondisplaced, no JVD, no LE edema b/l Respiratory: Good aeration, CTAB Abdomen: Soft, nontender, nondistended, + bowel sounds Lab and Diagnostics Result Diagram: 07/26/16 0307 07/26/16 0307 X-Rays, CTs and MRIs Echo 07/22/2016: normal sized LV with severely systolic function (EF 25-30%), moderate mitral regurgitation, moderate tricuspid regurgitation Assessment & Plan Assessment 80 yo W followed by Dr[address] Jain as outpatient admitted with HF. # HFrEF: EF 25-30% on Echo 07/22/2016. Etiology unclear but the recent worsening from 45% to 25-30% could be due to ischemic heart disease as she came in with angina and troponin elevation. Patient appears euvolemic on exam today. She had moderate urine output with furosemide 40mg IV on 07/23 and 07/24 and this essentially resolved her dyspnea. Anemia could be playing some role in her dyspnea as well. Plan: - Continue hydralazine 100mg tid - Increase imdur from 60mg daily to 120mg daily - Increase carvedilol from 12.5mg bid to 25mg bid for better BP control - Continue amlodipine 5mg daily - Continue furosemide 20mg IV daily # NSTEMI: peak troponin was 0.458 on 07/25/2016. Suspect this is due CAD given patient having chest pain that resolves with nitro SL. Plan: - Continue aspirin 81mg daily - Continue clopidogrel 75mg daily - Continue atorvastatin 40mg qhs - Continue heparin gtt for now. Will also monitor Hb as patient does have moderate degree of anemia, which has been stable - Given CKD and anemia, patient not an ideal angiogram candidate but this can be readdressed if stress test shows significant ischemia. Low intensity exercise nuclear stress test tomorrow # Mitral regurgitation, moderate: stable on recent echo. Continue to monitor. # Paroxysmal Atrial fibrillation: in sinus rhythm today - Will continue carvedilol as above. - Continue heparin gtt to reduce risk of stroke # HTN s/p left renal artery stent 2008 with moderately atrophic left kidney: BP stll elevated even after hydralazine initiation and uptitration to max dose. Patient would benefit from aggressive BP control, with goal BP < 120/80. # CKD: BUN and Cr stable. Will do better BP control and gentle diuresis as above. # Anemia: appears to be due to chronic disease. Defer to primary team for further evaluation. # HLD: statin as above Problems: Pain Evaluation: Adequate Pain Control GI Prophylaxis: Not indicated VTE Prophylaxis: Other (cardiac heparin gtt) Resuscitation Status: DNR/DNI:Do Not Resuscitate/Intubate Miesha Rodríguez MD Jul 26, 2016 12:16
--- NOTE | 2016-07-26 12:49 | PCM.PNMED ---
Subjective Date of Service Jul 26, 2016 Subjective Overnight: c/o chest pain at rest 6/10 mid apical, non radiating, placed on oxygen 2 liters. Medicated with morphine 1mg iv push, patient rated chest pain 5 /10. Patient continues to be in sinus rhythm. She is off oxygen and is breathing comfortably. Patient denies new episode of chest pain. Denies shortness of breath, nausea. Exam Vital Signs Vital Sign - Last Date Time Temp Pulse Resp B/P Pulse Ox O2 Delivery O2 Flow Rate FiO2 07/26/16 05:08 36.7 78 16 155/71 97 Nasal Cannula 2.00 Intake and Output 07/25/16 07/25/16 07/26/16 Cumulative From/Thru 15:00 23:00 07:00 07/21/16 21:15 - 07/26/16 06:23 Intake Total 2170 ml 930 ml 9462 ml Output Total 850 ml 1100 ml 6316 ml Balance 1320 ml -170 ml 3146 ml Intake Oral 570 ml 650 ml 6070 ml IV Total 1600 ml 280 ml 3392 ml Output Urine Total 850 ml 1100 ml 6315 ml Urine/Stool Mix 1 ml # Bowel Movements 2 4 Exam General: AAOx3; pleasant and cooperative; no acute distress HENT: Atraumatic, normocephalic; sclera anicteric; mucus membranes moist Neck: Soft, trachea midline Cardiac: Regular rate and rhythm Respiratory: Adequate air flow all bacon; no coarse sounds; no wheeze Abdomen: Soft, nontender, nondistended Extremities: No edema Skin: Warm, dry Neuro: CNII-XII grossly intact: speech normal; facial expressions symmetric Psych: Appropriate mood, affect, and responses to questioning; good insight and judgment Lab and Diagnostics Result Diagram: 07/26/16 0307 07/26/16 0307 Microbiology Microbiology MONSTER STREP PNEUMONIAE AG URINE Final 07/22/16-0831 STREP PNEUMO AG POSITIVE Tests performed directly on clinical specimens are intended for screening purposes only and should augment, not replace, culture procedures Please Note: Streptococcus pneumoniae vaccine may cause false positive results in urine in the 48 hours following injection. Hence, it is recommended that the Alere Strep pneumoniae Antigen testing not be performed within five days of receiving the S. pneumoniae vaccine X-Rays, CTs and MRIs PROCEDURE: X-RAY CHEST ONE VIEW, PORTABLE ([id number]) IMPRESSION: Bibasilar pneumonia. Follow up plain films of the chest are recommended to ensure resolution, and to exclude underlying or central malignancy. Dictated by: Timothy Dwyer M.D. on 07/21/2016 at 18:54 Approved by: Timothy Dwyer M.D. on 07/21/2016 at 18:54 PROCEDURE: US ABDOMEN ([id number]) IMPRESSION: 1. Cholelithiasis. No ultrasound findings to suggest acute cholecystitis. 2. 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 3. Moderate left renal atrophy and a 1.4 cm cyst in the superior pole.. 4. Fusiform ectasia of distal abdominal aorta. There is aortic atherosclerosis. Dictated by: Sue Staples M.D. on 07/22/2016 at 18:58 Approved by: Sue Staples M.D. on 07/22/2016 at 18:58 PROCEDURE: X-RAY CHEST, TWO VIEWS ([id number]) IMPRESSION: 1. Cardiomegaly is new since 2006. 2. Pulmonary remote granulomatous disease. Dictated by: Ketan Kruse M.D. on 07/24/2016 at 11:41 Approved by: Ketan Kruse M.D. on 07/24/2016 at 11:41 12-lead ECG EKG: sinus rhythm with LBBB and first degree AV block Cardiac Echo Impressions ECHO Interpretation Summary The left ventricle is normal in size but left ventricular systolic function is moderate to severely reduced with the ejection fraction visually estimated to be 25-30%, now with a significant dyssynchronous contraction pattern, consistent with a conduction abnormality and moderate to severe global hypokinesis that is worse in the septum and apex. This is much more pronounced compared to the previous study and compared to the prior exam, left ventricular function has significantly decreased. The right ventricle is normal size and right ventricular systolic function is at the lower limits of normal. This is unchanged compared to the previous study. The right ventricular systolic pressure is estimated at 48 mmHg assuming a right atrial pressure of 3 mm Hg, and is likely significantly lower compared to the previous study. Both atria are normal in size and both atria have mildly decreased in size since the prior echo exam. There is moderate mitral regurgitation and moderate tricuspid regurgitation that appear less prominent compared to the previous study. There is mild aortic stenosis and mild aortic regurgitation that are unchanged compared to the previous study. The ascending aorta is at the upper limits of normal in size but is unchanged compared to the previous study. The patient was in probable sinus tachycardia with heart rates between 100- 120 bpm during the exam which is considerably faster compared to the previous study. Reading Physician:04:29 PM Assessment & Plan Patient is an 80-year-old female with a history of congestive heart failure, hypertension, dyslipidemia, paroxysmal atrial fibrillation, and chronic kidney disease, admitted for dyspnea and chest pain; found to have bilateral S. pneumoniae pneumonia and elevated troponin indicative of NSTEMI. Heparin gtt initiated, antibiotics initiated. - Hospital day 6 1. Acute coronary syndrome, present on admission. Ongoing - Cardiology consulted- We appreciate the input and recommendations - Likely NSTEMI - Patient with LBBB and 1st degree AV block - Risk factors for ACS includes: CAD, dyslipidemia, hypertension, family history - Possible etiologies include: CHF exacerbation, pneumonia, CKD - Elevated troponin continue; trend for plateau. Last troponin 0.421 - Different treatment options discussed with the patient and her (by Dr. Mayfield). They opted for medical management only - Continue cardiac heparin gtt for now per cardiology - SL nitro and morphine PRN - Telemetry - Dual antiplatelet therapy per Dr. Mayfield (Aspirin and Clopidogrel) - Given CKD and anemia, patient not an ideal angiogram candidate but this can be readdressed if stress test shows significant ischemia. Low intensity exercise nuclear stress test tomorrow 2. Bibasilar pneumonia, acute, present on admission. Resolved. - Chest x-ray reads bibasilar pneumonia - Positive for Strep pneumo urine AG - Negative respiratory viral PCR - Repeat chest x-ray does not show bibasilar opacities - Patient completely asymptomatic - Antibiotics stopped azithromycin, ceftriaxone - Procalcitonin 0.52 3. Chronic systolic and diastolic heart failure, acute, present on admission. Presumed stable -ECHO done on 07/22/16: Compared to previous study left ventricular function has significantly decreased. EF 20-35%, moderate to severe global hypokinesis worse in the septum and apex. Moderate mitral and tricupsid regurgitation, mild aortic stenosis and regurgitation - Pro-BNP 65393. Repeat pro-BNP 07/24/16: 46037, 10699 - I/Os, standing daily weights - Lasix 20mg IV qd 4. Acute transaminitis, present on admission. Resolved - Possibly secondary to hepatic congestion secondary to #3, statin toxicity, cholecystitis - US abdomen done 07/22/16: Cholelithiasis. No ultrasound findings to suggest acute cholecystitis. - Cut down Pravastatin from 80 mg to 40 mg - Acute hepatitis panel: negative - AST and ALT almost back to within range. Continue to follow with daily CMP 5. Hypertension with Hypertensive heart disease, chronic, present no admission - s/p left renal artery stent 2008 with moderately atrophic left kidney: BP mildly elevated - Patient will benefit from aggressive BP control with the goal of <120/80 - Continue hydralazine 100mg tid - Increase imdur from 60mg daily to 120mg daily - Increase carvedilol from 12.5mg bid to 25mg bid for better BP control - Continue amlodipine 5mg daily - Continue furosemide 20mg IV daily 6. Dyslipidemia, chronic, present on admission - Continue home atorvastatin but decrease to 40 mg from 80 mg d/t elevation in AST and ALT 7. Chronic kidney disease, present on admission. Presumed stable - Today Cr 2.11. Creatinine was 1.84 on admission - Avoid nephrotoxins - Follow with CMP 8. Paroxysmal Atrial Fibrillation, chronic, present on admission. Presumed stable - In sinus rhythm today - Will continue carvedilol as above. - Continue heparin gtt to reduce risk of stroke 9. Generalized aches and malaise, not present on admission. Resolved - Likely secondary to decreased activity and bedrest - Encourage ambulation/ up with meals - Negative for flu type A and B - PRN: fever/antiemetics/bowel/pain - DVT: hep gtt - DIET: Heart healthy - GI: H2B - CODE: DNR/DNI - High risk Rx: Hep gtt Dispo: Due to current cardiac condition, heparin gtt continues. Anticipated DC 1 -2 days. No anticipated needs. Pt cleared for home with no additional therapies. On room air, home O2 need unlikely. GI Prophylaxis: Not indicated VTE Prophylaxis: Other (cardiac heparin gtt) Resuscitation Status: DNR/DNI:Do Not Resuscitate/Intubate Attending Statement The patient was seen and examined together with Dr. Cross on 07/26/2016 and I agree with the history, exam and plan as outlined in the note above. BEATA CROSS DO Jul 26, 2016 07:48 Mark Ocampo MD Jul 26, 2016 20:44
--- NOTE | 2016-07-26 15:54 | NUR ---
Cardiac No chest pains this shift. No pain or SOB with ambulating. Provider order to ambulate 3x daily. Heparin gtt continues with no changes this shift. Next aPTT in AM. Troponin lvls reduced this shift. Serial trops scheduled at this time. Plan is for NPO after midnight for stress test in AM.
[2016-07-26] MEDS: Heparin 25K Unit/500mL 0.45 NS 25,000 UNIT in IV Premix 1 EACH IV SCH (17:36)
[2016-07-27] VITALS (7 sets, daily range): BP systolic 142–165; BP diastolic 66–73; PULSE 66–82; RESP 18–20; O2SAT 95–96
--- NOTE | 2016-07-27 04:21 | NUR ---
Behavioral Health Worker Pt very pleasant and cooperative with care. Given Heart medications and instructed to use the call light when needing to get up to use the bathroom. Pt steady on feet, no s/sx of distress, denies SOB/CP, on RA. Heparin drip running, 0500 am Labs to be drawn. Continuing to monitor.
[2016-07-27 06:25] LABS: BASOPHILS % (AUTO) 0.5 % (0-3); EOSINOPHILS % (AUTO) 6.3 % (0-5); MONOCYTES % (AUTO) 8.3 % (4-12); Mean Corpuscular Hemoglobin 31.3 pg (27.0-35.0); Mean Corpuscular Volume 96.3 fL (81-100); NEUTROPHILS % (AUTO) 58.4 % (40-74); Platelet Count 167 bil/L (150-400)
[2016-07-27 07:55] LABS: TROPONIN T 0.305 ug/L (0.0-0.011)
[2016-07-27] MEDS: Isosorbide Mononitrate 60 mg ER24 Tablet PO SCH (08:30)
[2016-07-27] MEDS: Furosemide 10 mg/mL 4 mL Inj IVPUSH SCH (09:11)
--- NOTE | 2016-07-27 13:11 | PCM.PNMED ---
Subjective Date of Service Jul 27, 2016 Subjective No overnight events. Patient is stable. Denies new episodes of chest pain or shortness of breath. Steady gait. Ready for stress test this morning. by the bedside. Exam Vital Signs Vital Sign - Last Date Time Temp Pulse Resp B/P Pulse Ox O2 Delivery O2 Flow Rate FiO2 07/27/16 09:34 36.4 76 20 146/70 95 Room Air 07/26/16 05:08 2.00 Intake and Output 07/26/16 07/26/16 07/27/16 Cumulative From/Thru 15:00 23:00 07:00 07/21/16 21:15 - 07/27/16 06:42 Intake Total 953 ml 231 ml 16096 ml Output Total 800 ml 750 ml 7866 ml Balance 153 ml -519 ml 2780 ml Intake Oral 700 ml 0 ml 6770 ml IV Total 253 ml 231 ml 3876 ml Output Urine Total 800 ml 750 ml 7865 ml Urine/Stool Mix 1 ml # Bowel Movements 1 0 5 Exam General: AAOx3; pleasant and cooperative; no acute distress HEENT: Atraumatic, normocephalic; sclera anicteric; mucus membranes moist Heart: Regular rate and rhythm Chest: Adequate air flow all bacon; no coarse sounds; no wheeze Abdomen: Soft, nontender, nondistended Extremities: No edema Skin: Warm, dry Lab and Diagnostics Result Diagram: 07/27/16 0600 07/27/16 0600 Microbiology Microbiology MONSTER STREP PNEUMONIAE AG URINE Final 07/22/16-0831 STREP PNEUMO AG POSITIVE Tests performed directly on clinical specimens are intended for screening purposes only and should augment, not replace, culture procedures Please Note: Streptococcus pneumoniae vaccine may cause false positive results in urine in the 48 hours following injection. Hence, it is recommended that the Alere Strep pneumoniae Antigen testing not be performed within five days of receiving the S. pneumoniae vaccine X-Rays, CTs and MRIs PROCEDURE: X-RAY CHEST ONE VIEW, PORTABLE ([id number]) IMPRESSION: Bibasilar pneumonia. Follow up plain films of the chest are recommended to ensure resolution, and to exclude underlying or central malignancy. Dictated by: Timothy Dwyer M.D. on 07/21/2016 at 18:54 Approved by: Timothy Dwyer M.D. on 07/21/2016 at 18:54 PROCEDURE: US ABDOMEN ([id number]) IMPRESSION: 1. Cholelithiasis. No ultrasound findings to suggest acute cholecystitis. 2. 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 3. Moderate left renal atrophy and a 1.4 cm cyst in the superior pole.. 4. Fusiform ectasia of distal abdominal aorta. There is aortic atherosclerosis. Dictated by: Sue Staples M.D. on 07/22/2016 at 18:58 Approved by: Sue Staples M.D. on 07/22/2016 at 18:58 PROCEDURE: X-RAY CHEST, TWO VIEWS ([id number]) IMPRESSION: 1. Cardiomegaly is new since 2006. 2. Pulmonary remote granulomatous disease. Dictated by: Ketan Kruse M.D. on 07/24/2016 at 11:41 Approved by: Ketan Kruse M.D. on 07/24/2016 at 11:41 12-lead ECG EKG: sinus rhythm with LBBB and first degree AV block Cardiac Echo Impressions ECHO Interpretation Summary The left ventricle is normal in size but left ventricular systolic function is moderate to severely reduced with the ejection fraction visually estimated to be 25-30%, now with a significant dyssynchronous contraction pattern, consistent with a conduction abnormality and moderate to severe global hypokinesis that is worse in the septum and apex. This is much more pronounced compared to the previous study and compared to the prior exam, left ventricular function has significantly decreased. The right ventricle is normal size and right ventricular systolic function is at the lower limits of normal. This is unchanged compared to the previous study. The right ventricular systolic pressure is estimated at 48 mmHg assuming a right atrial pressure of 3 mm Hg, and is likely significantly lower compared to the previous study. Both atria are normal in size and both atria have mildly decreased in size since the prior echo exam. There is moderate mitral regurgitation and moderate tricuspid regurgitation that appear less prominent compared to the previous study. There is mild aortic stenosis and mild aortic regurgitation that are unchanged compared to the previous study. The ascending aorta is at the upper limits of normal in size but is unchanged compared to the previous study. The patient was in probable sinus tachycardia with heart rates between 100- 120 bpm during the exam which is considerably faster compared to the previous study. Reading Physician:04:29 PM Assessment & Plan Patient is an 80-year-old female with a history of congestive heart failure, hypertension, dyslipidemia, paroxysmal atrial fibrillation, and chronic kidney disease, admitted for dyspnea and chest pain; found to have bilateral S. pneumoniae pneumonia and elevated troponin indicative of NSTEMI. Heparin gtt initiated, antibiotics initiated. - Hospital day 6 1. Acute coronary syndrome, present on admission. Ongoing - Cardiology consulted- We appreciate the input and recommendations - Likely NSTEMI - Patient with LBBB and 1st degree AV block - Risk factors for ACS includes: CAD, dyslipidemia, hypertension, family history - Possible etiologies include: CHF exacerbation, pneumonia, CKD - Elevated troponin begin to trend down : 0.369, 0,350, 0.305 - Different treatment options discussed with the patient and her (by Dr. Mayfield). They opted for medical management only - Continue cardiac heparin gtt for now per cardiology - SL nitro and morphine PRN - Telemetry - Dual antiplatelet therapy per Dr. Mayfield (Aspirin and Clopidogrel) - Given CKD and anemia, patient not an ideal angiogram candidate but this can be readdressed if stress test shows significant ischemia. Low intensity exercise nuclear stress test today 2. Bibasilar pneumonia, acute, present on admission. Resolved. - Chest x-ray reads bibasilar pneumonia - Positive for Strep pneumo urine AG - Negative respiratory viral PCR - Repeat chest x-ray does not show bibasilar opacities - Patient completely asymptomatic - Antibiotics stopped azithromycin, ceftriaxone - Procalcitonin 0.52 3. Chronic systolic and diastolic heart failure, acute, present on admission. Presumed stable -ECHO done on 07/22/16: Compared to previous study left ventricular function has significantly decreased. EF 20-35%, moderate to severe global hypokinesis worse in the septum and apex. Moderate mitral and tricupsid regurgitation, mild aortic stenosis and regurgitation - Pro-BNP 73444. Repeat pro-BNP 07/24/16: 95277, 81058 - I/Os, standing daily weights - Lasix 20mg IV qd 4. Acute transaminitis, present on admission. Resolved - Possibly secondary to hepatic congestion secondary to #3, statin toxicity, cholecystitis - US abdomen done 07/22/16: Cholelithiasis. No ultrasound findings to suggest acute cholecystitis. - Cut down Pravastatin from 80 mg to 40 mg - Acute hepatitis panel: negative - AST and ALT almost back to within range. Continue to follow with daily CMP 5. Hypertension with Hypertensive heart disease, chronic, present no admission - s/p left renal artery stent 2008 with moderately atrophic left kidney: BP mildly elevated - Patient will benefit from aggressive BP control with the goal of <120/80. BP 146/70 this am - Continue hydralazine 100mg tid - Increase imdur from 60mg daily to 120mg daily - Increase carvedilol from 12.5mg bid to 25mg bid for better BP control - Continue amlodipine 5mg daily - Continue furosemide 20mg IV daily 6. Dyslipidemia, chronic, present on admission - Continue home atorvastatin but decrease to 40 mg from 80 mg d/t elevation in AST and ALT 7. Chronic kidney disease, present on admission. Presumed stable - Today Cr 2.16. Creatinine was 1.84 on admission - Avoid nephrotoxins - Follow with CMP 8. Paroxysmal Atrial Fibrillation, chronic, present on admission. Presumed stable - In sinus rhythm today - Will continue carvedilol as above - Continue heparin gtt to reduce risk of stroke 9. Generalized aches and malaise, not present on admission. Resolved - Likely secondary to decreased activity and bedrest - Encourage ambulation/ up with meals - Negative for flu type A and B - PRN: fever/antiemetics/bowel/pain - DVT: hep gtt - DIET: Heart healthy - GI: H2B - CODE: DNR/DNI - High risk Rx: Hep gtt Dispo: Due to current cardiac condition, heparin gtt continues. Anticipated DC 1 -2 days. No anticipated needs. Pt cleared for home with no additional therapies. On room air, home O2 need unlikely. GI Prophylaxis: Not indicated VTE Prophylaxis: Other (cardiac heparin gtt) VTE Mechanical Devices: Intermittant Pneumatic CD Resuscitation Status: DNR/DNI:Do Not Resuscitate/Intubate Attending Statement The patient was seen and examined together with Dr. Cross on 07/27/2016 and I agree with the history, exam and plan as outlined in the note above. BEATA CROSS DO Jul 27, 2016 10:09 Mark Ocampo MD Jul 28, 2016 09:50
--- NOTE | 2016-07-27 14:22 | NUR ---
Transferred to [facility] patient transferred to [facility] to have stress test done at approx. 1300. Addendum: 07/27/16 at 1521 by ISAC HAAS RN Transferred back to Floor Patient transferred back to floor at 1518.
--- NOTE | 2016-07-27 19:10 | DRSVH ---
PROCEDURE: ONE DAY PHARMACOLOGICAL STRESS TEST INDICATIONS: Ms. Goldberg is an 80-year-old female who presents with chest pain, abnormal cardiac en zymes and symptoms of pulmonary congestion. Nuclear cardiac stress study is performed to evaluate fo r underlying ischemic heart disease. COMPARISON: None. PROCEDURE: This patient was given a standard Lexiscan pharmacologic stress study. She was hypertens nivia at baseline with a blood pressure of 170/64 with a sinus rate of around 90 beats per minute. [facility] 12-line EKG showed anterior Q-waves, diffuse anterolateral T-wave inversion, leftward axis anatoliy ation and an incomplete left bundle branch block or interventricular conduction delay. I do not gilberto paulino her baseline EKG is consistent with a true left bundle. She had a normal physiologic response to Lexiscan with symptoms of dyspnea and nausea without chest pain or diagnostic EKG changes. This patient received 8.2 mCi of technetium-99 tetrofosmin for the resting portion of the examination . She then received 24.7 mCi for the stress portion of the examination following Lexiscan injection. FINDINGS: Raw Data: Raw data images demonstrate overall good image quality. No significant source of artifact or interference noted. Quantitative Gated SPECT Imaging: Gated images show a normal-size ventricle with an end diastolic vo lume of 96 cc. The estimated ejection fraction is 58% with apical and septal hypokinesis on both str ess and rest images. Quantitative Perfusion SPECT Imaging: Both stress and rest myocardial perfusion images show moderate intensity hypoperfusion involving the distal anterior wall and apex on both stress and rest perfusio n images. A similar perfusion abnormality is seen on prone imaging as well with no significant nolasco e between any of the images. I do not see any reversible perfusion abnormalities that would suggest significant ischemia. IMPRESSION: Abnormal nuclear cardiac stress study: A. Abnormal baseline electrocardiogram with anterior Q-wave and an incomplete left bundle branch blo ck. B. Normal-size left ventricle with ejection fraction estimated in the range of 50% to 60% with septa l and anteroapical hypokinesis. C. Moderate-size, fixed region of hypoperfusion involving the distal anterior wall and apex. This i s consistent with nontransmural infarction since the perfusion abnormality is not particularly dense, but I do not see any evidence of ischemia. DISCUSSION: This patient likely had a nontransmural anteroapical myocardial infarction accounting fo r her clinical presentation and abnormal echocardiogram. It is notable that her current ejection fra ction is significantly better than that estimated on her initial echocardiogram. Clinical correlatio n suggested. Dictated by: Fer Musa M.D. on 07/27/2016 at 16:47 Transcribed by: FER on 07/27/2016 at 22:09 Approved by: Fer Musa M.D. on 08/14/2016 at 12:18
[2016-07-28 02:17] VITALS: BP 145/68; PULSE 63; RESP 18; O2SAT 96
--- NOTE | 2016-07-28 04:57 | NUR ---
Ambulation / Heparin drip Ambulated long and short loops of hallway on cont pulse oximetry without supplemental oxygen without showing any desaturation. Mild SOB, denied chest pain. Cardiac heparin drip per protocol, unchanged, next PTT in am. Hourly rounding ongoing.
[2016-07-28 05:59] VITALS: BP 149/63; PULSE 67; RESP 18; O2SAT 95
[2016-07-28 06:39] LABS: BASOPHILS % (AUTO) 0.5 % (0-3); EOSINOPHILS % (AUTO) 7.8 % (0-5); Mean Corpuscular Hemoglobin 31.4 pg (27.0-35.0); Mean Corpuscular Volume 96.2 fL (81-100); NEUTROPHILS % (AUTO) 54.8 % (40-74); Platelet Count 180 bil/L (150-400)
[2016-07-28 08:06] LABS: TROPONIN T 0.218 ug/L (0.0-0.011)
[2016-07-28] MEDS: Isosorbide Mononitrate 60 mg ER24 Tablet PO SCH (08:59)
[2016-07-28] MEDS: Furosemide 10 mg/mL 4 mL Inj IVPUSH SCH (09:04)
--- NOTE | 2016-07-28 09:59 | PROG NOTE ---
[address] [address] PROGRESS NOTE PATIENT: WILLIE ACOSTA : 1935 MR#: [id number] ADMIT: 07/21/2016 JOB ID: [id number] DATE: 07/27/2016 CHIEF COMPLAINT: Shortness of breath. HISTORY OF PRESENT ILLNESS: The patient is an 80-year-old woman followed by Dr. Jain as an outpatient admitted with heart failure. She says right now she is feeling much better. She desires to be discharged home. OBJECTIVE: Vital signs: Temperature 36.8, blood pressure 145/66 up to 165/73, pulse between 66 up to 82 beats per minute. She is satting 95% on room air. Thin elderly lady in no apparent distress. Heart: Normal S1, S2. A 3/6 holosystolic murmur at the apex, 2/6 systolic ejection murmur right upper sternal border. Lungs: Clear to auscultation anteriorly. Abdomen: Soft, nontender, positive bowel sounds. No hepatosplenomegaly. Extremities: Warm, well perfused. No clubbing, cyanosis or edema. Skin: No rashes. No lesions. Her creatinine was 2.1, hematocrit 29%. I reviewed her stress test. It showed a small-sized moderate intensity fixed apical and distal anterior perfusion defect consistent with completed infarct. ASSESSMENT AND PLAN: 1. An 80-year-old woman followed by Dr. Jain for multiple cardiac issues comes in with acute decompensated heart failure. 2. Chest discomfort. She had a catheterization in 2006 and it showed no evidence of obstructive disease. She actually had a fairly recent stress test in November 2015. At that time it showed medium size moderate intensity fixed distal anterior and apical perfusion defect consistent with completed infarct. This is exactly what I am seeing on stress testing this time around and my impression that there has not been any acute change and even though she does have elevated troponin T peaking at 0.46. Given lack of change since November and also stage 4 chronic kidney disease with creatinine of 2.1 and a single functioning kidney, I think the risk of cardiac catheterization is prohibitive. Unfortunately EKG is uninterpretable due to old left bundle branch block. 3. In terms of paroxysmal atrial fibrillation, as an outpatient she is actually not on oral anticoagulation. She has not had any AFib on monitor so far in the course of her hospitalization. Dr. Jain chose not to put her on the oral anticoagulation as an outpatient. Certainly is not something we need to do while she is here. She is on heparin drip here for non STEMI. She completed 48 hours of medical therapy and I think it is reasonable to go ahead and stop heparin drip. 4. Antianginal medication. She has continued her outpatient antianginals including amlodipine 5 mg twice a day and Imdur [address] Rodríguez increased her Coreg from 12.5 twice a day to 25 twice a day and she is tolerating it well. He also added hydralazine for afterload reduction. She seems to be tolerating it well. So those would be the two adjustments for her to go home with. Additionally I noticed Dr. Rodríguez stopped her aspirin and started her on Plavix instead given her cerebrovascular disease. I think that is reasonable. 5. Ischemic evaluation. Her stress test was completely normal in 2009 and became abnormal on November 2015 but whether to cath her is extremely challenging to make that decision at this time and I am going to enlist the support of her primary guidance services coordinator, Dr. Jain, who knows her best. I either will give him a call or I will discuss with him in person when I see him later today. 6. Cardiomyopathy. Her EF was 45%-50% as of February 2016. Now her EF is 25%-30% with significant dyssynchrony. The etiology is unknown and could easily be related to ischemia but again, the risk of catheterization is prohibitive in my opinion, but I will double check with her primary guidance services coordinator. Thank you for the opportunity to evaluate her.
[2016-07-28 10:46] VITALS: BP 106/53; PULSE 60; RESP 16; O2SAT 97
--- NOTE | 2016-07-28 11:00 | NUR ---
Ambulation/O2 Pt ambulated with RN around half loop of the department. Denied CP. c/o legs feeling "tired". O2 at 96% RA and HR 68. Pt now resting in bed. Will continue to monitor.
[2016-07-28 12:39] VITALS: BP 113/57; PULSE 59; RESP 16; O2SAT 96
[2016-07-28] MEDS ORDERED: Darbepoetin Alfa 60 mCg/0.3 mL Inj SUBQ ONE (15:15)
--- NOTE | 2016-07-28 15:56 | CONS ---
[address] [address] CONSULTATION REPORT PATIENT: WILLIE ACOSTA : 1935 MR#: [id number] ADMIT: 07/21/2016 JOB ID: [id number] DATE OF SERVICE: 07/28/2016 RENAL CONSULTATION: BACKGROUND HISTORY: The patient is a very pleasant 80-year-old white female, who was admitted to [facility] for acute decompensated congestive heart failure. She has a history of chronic renal disease and has developed what appears to be acute on chronic kidney injury and renal consultation is being sought for further evaluation of her renal dysfunction. She has a longstanding history of chronic kidney disease and is currently being followed by an outside audio engineer. There is a history of an atrophic left kidney secondary to stent placement. She is unsure as to a history of proteinuria or recurrent hematuria. There is no history of any recurrent urinary tract infections, renolithiasis or frequent use of nonsteroidal anti-inflammatories. However, there is a remote history of frequent use of non-steroidals. There is no history of any current use of proton pump inhibitors, but she is on an H2 jeanne and has been for some time. There has also been a history of an associated anemia for which she has been taking iron intermittently for. She has not been on any erythropoietin injections. She denies a history of any diabetes or hepatitis. Several months ago, an echocardiogram showed an ejection fraction of approximately 40%-45%. Several weeks prior to admission, the patient began to develop some progressive shortness of breath, orthopnea, and dyspnea on minimal exertion. She was found to be in congestive heart failure and at the time of admission, was aggressively diuresed. Reviewing her intake and output, she has not had a tremendous increase in her urine output. However, she has had several dips in her systolic blood pressure. I do not see were she was given any contrast studies nor has she had any overt nephrotoxins. At time of admission, her creatinine was 1.84 and today her creatinine is 2.24. Subjectively she states she feels dehydrated and thirsty. He other remarkable feature from her laboratory is today she has 8% eosinophils. I do not see where any new medications were started and she denies any pruritus or rash. She denies any frequent nausea, vomiting, current chest pain, shortness of breath, orthopnea, cough, wheezing, diarrhea, arthralgias or rash. 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 PAST SURGICAL HISTORY: Is significant for cataract surgery, placement of a left renal artery stent, cardiac catheterization, hysterectomy, tonsillectomy, left hip replacement, cystocele repair, and Moh procedure for squamous cell carcinoma. ALLERGIES: She is allergic to SULFA drugs. SOCIAL HISTORY: She denies the current use of alcohol, tobacco or illicit drugs. FAMILY HISTORY: Noncontributory. REVIEW OF SYSTEMS: As detailed above. Otherwise is unremarkable. MEDICATIONS: At time of my evaluation, include potassium chloride, Coreg, hydralazine, furosemide, aspirin, atorvastatin, Plavix, Isordil, amlodipine, vitamin D 3, famotidine. PHYSICAL EXAMINATION: Revealed an 80-year-old white female, who was alert and oriented x3, in no distress at time of my evaluation. HEENT examination is remarkable for pale sclerae and some mild dry mucous membranes. Neck is supple without adenopathy, thyromegaly or jugular venous distention at 20 degrees. Lungs are clear to auscultation. Heart was irregularly irregular. Abdomen was soft without evidence of any fluid. There was no tenderness, rebound, guarding or masses noted. There was no hepatosplenomegaly. There was no hepatojugular reflux and the liver was not pulsatile. Extremities did not show evidence of any clubbing, cyanosis, or edema. However, half and half nails were noted. Skin turgor was diminished and there is no evidence of any rashes. LABORATORY EXAMINATION: This morning, her sodium is 140, potassium 4.6, chloride of 104, CO2 of 19, BUN and creatinine were 28 and 2.25. Liver function studies were within normal limits and albumin is 3.1. Her CBC today showed a white count of 6000, hemoglobin 9.8, hematocrit 30.0. Red cell indices and differential were remarkable only for a eosinophil count of 7.8%. Urinalysis taken on admission showed a specific gravity of 1.020, urine pH was 7.0. Urine protein were greater than 300 mg. There was a small occult blood, 3-12 RBCs per high-power field, 11-50 WBCs per high-power field. Moderate epithelial cells and no bacteria. IMPRESSION: 1. Acute kidney injury secondary to intravascular volume depletion. Rule out acute interstitial nephritis. 2. Atrophic left kidney. 3. Hypertension with hypertensive heart disease and hypertensive nephrosclerosis. 4. Normocytic normochromic anemia secondary to chronic kidney disease. 5. Proteinuria. RECOMMENDATION: I would like to check iron studies along with a serum protein electrophoresis and a uric acid level. I would also like to check urine free eosinophils along with a C3 and a C4 level. I feel we should try some cautious IV hydration and I would like to give her some half normal saline at 80 mL an hour for the next 24 hours. I would also like to give her a dose of Aranesp 60 mg in an attempt to improve her oxygen carrying capacity. Once again, I would like to thank you for allowing me to participate in the care of this most pleasant interesting patient. I will be following her closely with you.
--- NOTE | 2016-07-28 16:02 | PROG NOTE ---
[address] [address] PROGRESS NOTE PATIENT: WILLIE ACOSTA : 1935 MR#: [id number] ADMIT: 07/21/2016 JOB ID: [id number] DATE: 07/28/2016 SUBJECTIVE: This morning patient says she feels fine. She has improved. Her legs are tired. Otherwise, she has no complaints. OBJECTIVE: Vital signs: Temperature is 36.5, blood pressure 106/54 up to 149/63. Heart: Normal S1, S2. A 3/6 holosystolic murmur at the apex. A 2/6 systolic ejection murmur at upper sternal border. Lungs are clear to auscultation anteriorly. Abdomen is soft, nontender. Skin shows no rashes or lesions. Echocardiogram performed on July 22 showed EF of 25% to 30% with significant aberrant conduction. She has moderate mitral regurgitation and mild aortic stenosis, with mild associated aortic regurgitation. Her labs are reviewed. Unfortunately, she is anemic, which is stable. Hematocrit is 30%. Creatinine is 2.25. Troponin T peaked at 0.458 in the setting of renal insufficiency. ASSESSMENT AND PLAN: This is an 80-year-old woman, followed by Dr. Jain for multiple cardiac issues comes in with acute decompensated heart failure. 1. Chest discomfort. Her catheterization in 2006, showed no evidence of obstructive disease. Stress test July 2016, is unchanged compared to prior study of November 2015. She has a medium-sized, moderate intensity, fixed distal anterior and apical perfusion defect consistent with completed infarct. Her troponin is difficult to interpret. I think the risk of cardiac catheterization is prohibitive, and Dr. Jain echoed my sentiment. EKG is uninterpretable due to left bundle. 2. In terms of paroxysmal atrial fibrillation, she is not on oral anticoagulation. She has not had any atrial fibrillation so far in the course of her hospitalization. 3. Antianginal medication. Continue Coreg, Imdur and a max dose of amlodipine. 4. Ischemic evaluation. Stress test showed a completed anterior infarct. It is possible there was some viability but I think the risk of invasive procedure is prohibitive. 5. Cardiomyopathy. Ejection fraction fell down with significant synchrony and old left bundle. I discussed the case with Dr. Jain, and he recommended for her to be evaluated by Dr. Pena to discuss cardiac resynchronization therapy. I took the liberty of ordering it. Thank you for the opportunity to evaluate her.
[2016-07-28 16:25] LABS: Unsaturated Iron Binding 115.8 ug/dL
--- NOTE | 2016-07-28 17:13 | PCM.PNMED ---
Subjective Date of Service Jul 28, 2016 Subjective No overnight events. Patient states she feels ok. Denies chest pain, irregular heart palpitations, shortness of breath. Exam Vital Signs Vital Sign - Last Date Time Temp Pulse Resp B/P Pulse Ox O2 Delivery O2 Flow Rate FiO2 07/28/16 12:39 36.5 59 16 113/57 96 Room Air 07/26/16 05:08 2.00 Intake and Output 07/27/16 07/27/16 07/28/16 Cumulative From/Thru 15:00 23:00 07:00 07/21/16 21:15 - 07/28/16 05:54 Intake Total 600 ml 472 ml 60041 ml Output Total 1000 ml 8866 ml Balance -400 ml 472 ml 2852 ml Intake Oral 600 ml 7370 ml IV Total 472 ml 4348 ml Output Urine Total 1000 ml 8865 ml Urine/Stool Mix 1 ml # Bowel Movements 0 5 Exam General: AAOx3; pleasant and cooperative; no acute distress HEENT: Atraumatic, normocephalic; sclera anicteric; mucus membranes moist Heart: Regular rate and rhythm Chest: Adequate air flow all bacon; no coarse sounds; no wheeze Abdomen: Soft, nontender, nondistended Extremities: No edema Skin: Warm, dry IVs and Medications IV Fluids IVF 1/2 NS 60 mls/hr x 24 hr Lab and Diagnostics Result Diagram: 07/28/16 0505 07/28/16 0505 Microbiology Microbiology MONSTER STREP PNEUMONIAE AG URINE Final 07/22/16-0831 STREP PNEUMO AG POSITIVE Tests performed directly on clinical specimens are intended for screening purposes only and should augment, not replace, culture procedures Please Note: Streptococcus pneumoniae vaccine may cause false positive results in urine in the 48 hours following injection. Hence, it is recommended that the Alere Strep pneumoniae Antigen testing not be performed within five days of receiving the S. pneumoniae vaccine X-Rays, CTs and MRIs PROCEDURE: X-RAY CHEST ONE VIEW, PORTABLE ([id number]) IMPRESSION: Bibasilar pneumonia. Follow up plain films of the chest are recommended to ensure resolution, and to exclude underlying or central malignancy. Dictated by: Timothy Dwyer M.D. on 07/21/2016 at 18:54 Approved by: Timothy Dwyer M.D. on 07/21/2016 at 18:54 PROCEDURE: US ABDOMEN ([id number]) IMPRESSION: 1. Cholelithiasis. No ultrasound findings to suggest acute cholecystitis. 2. 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 3. Moderate left renal atrophy and a 1.4 cm cyst in the superior pole.. 4. Fusiform ectasia of distal abdominal aorta. There is aortic atherosclerosis. Dictated by: Sue Staples M.D. on 07/22/2016 at 18:58 Approved by: Sue Staples M.D. on 07/22/2016 at 18:58 PROCEDURE: X-RAY CHEST, TWO VIEWS ([id number]) IMPRESSION: 1. Cardiomegaly is new since 2006. 2. Pulmonary remote granulomatous disease. Dictated by: Ketan Kruse M.D. on 07/24/2016 at 11:41 Approved by: Ketan Kruse M.D. on 07/24/2016 at 11:41 12-lead ECG EKG: sinus rhythm with LBBB and first degree AV block Cardiac Echo Impressions ECHO Interpretation Summary The left ventricle is normal in size but left ventricular systolic function is moderate to severely reduced with the ejection fraction visually estimated to be 25-30%, now with a significant dyssynchronous contraction pattern, consistent with a conduction abnormality and moderate to severe global hypokinesis that is worse in the septum and apex. This is much more pronounced compared to the previous study and compared to the prior exam, left ventricular function has significantly decreased. The right ventricle is normal size and right ventricular systolic function is at the lower limits of normal. This is unchanged compared to the previous study. The right ventricular systolic pressure is estimated at 48 mmHg assuming a right atrial pressure of 3 mm Hg, and is likely significantly lower compared to the previous study. Both atria are normal in size and both atria have mildly decreased in size since the prior echo exam. There is moderate mitral regurgitation and moderate tricuspid regurgitation that appear less prominent compared to the previous study. There is mild aortic stenosis and mild aortic regurgitation that are unchanged compared to the previous study. The ascending aorta is at the upper limits of normal in size but is unchanged compared to the previous study. The patient was in probable sinus tachycardia with heart rates between 100- 120 bpm during the exam which is considerably faster compared to the previous study. Reading Physician:04:29 PM Assessment & Plan Patient is an 80-year-old female with a history of congestive heart failure, hypertension, dyslipidemia, paroxysmal atrial fibrillation, and chronic kidney disease, admitted for dyspnea and chest pain; found to have bilateral S. pneumoniae pneumonia and elevated troponin indicative of NSTEMI. Heparin gtt initiated, antibiotics initiated. - Hospital day 6 1. Acute coronary syndrome, present on admission. Ongoing - Cardiology consulted- We appreciate the input and recommendations - Likely NSTEMI - Patient with LBBB and 1st degree AV block - Risk factors for ACS includes: CAD, dyslipidemia, hypertension, family history - Possible etiologies include: CHF exacerbation, pneumonia, CKD - Elevated troponin begin to trend down : 0.369, 0,350, 0.305, 0.245, 0.218 - D/C cardiac heparin gtt - Telemetry - Aspirin and Clopidogrel - Stress test showed a completed anterior infarct. Per Dr. Krishnamurthy, the risk of cardiac catheterization is prohibitive. 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 Bibasilar pneumonia, acute, present on admission. Resolved. - Chest x-ray reads bibasilar pneumonia - Positive for Strep pneumo urine AG - Negative respiratory viral PCR - Repeat chest x-ray does not show bibasilar opacities - Patient completely asymptomatic - Antibiotics stopped azithromycin, ceftriaxone - Procalcitonin 0.52 3. Chronic systolic and diastolic heart failure, acute, present on admission. Presumed stable -- Pro-BNP 87510. Repeat pro-BNP 07/24/16: 93815, 34109 -ECHO done on 07/22/16: Compared to previous study left ventricular function has significantly decreased. EF 20-35%, moderate to severe global hypokinesis worse in the septum and apex. Moderate mitral and tricupsid regurgitation, mild aortic stenosis and regurgitation. - Evaluation by Dr. Pena to discuss cardiac resynchronization therapy ordered by Dr. Krishnamurthy 4. Acute transaminitis, present on admission. Resolved - Possibly secondary to hepatic congestion secondary to #3, statin toxicity, cholecystitis - US abdomen done 07/22/16: Cholelithiasis. No ultrasound findings to suggest acute cholecystitis. - Cut down Pravastatin from 80 mg to 40 mg - Acute hepatitis panel: negative - AST and ALT almost back to within range. Continue to follow with daily CMP 5. Hypertension with Hypertensive heart disease, chronic, present no admission - s/p left renal artery stent 2009 with moderately atrophic left kidney: BP mildly elevated - Patient will benefit from aggressive BP control with the goal of <120/80 - Continue hydralazine 100mg tid - Increase imdur from 60mg daily to 120mg daily - Increase carvedilol from 12.5mg bid to 25mg bid for better BP control - Continue amlodipine 5mg daily - Continue furosemide 20mg IV daily 6. Dyslipidemia, chronic, present on admission - Continue home atorvastatin 40 mg 7. Acute Kidney Injury on Chronic kidney disease, present on admission, worsening - Today Cr 2.25. Creatinine was 1.84 on admission - Nephrology consult - Check iron studies along with a serum protein electrophoresis,uric acid and urine free eosinophils along with a C3 and a C4 level per Dr. Thakkar - IV hydration and half normal saline at 80 mL/hr x 24hr per nephrology - Aranesp 60 mg in an attempt to improve her oxygen carrying capacity per nephrology 8. Paroxysmal Atrial Fibrillation, chronic, present on admission. Presumed stable - In sinus rhythm today - Will continue carvedilol as above 9. Generalized aches and malaise, not present on admission. Resolved - Likely secondary to decreased activity and bedrest - Encourage ambulation/ up with meals - Negative for flu type A and B - PRN: fever/antiemetics/bowel/pain - DVT: hep gtt - DIET: Heart healthy - GI: H2B - CODE: DNR/DNI - High risk Rx: Hep gtt Dispo: Due to current cardiac condition, heparin gtt continues. Anticipated DC 1 -2 days. No anticipated needs. Pt cleared for home with no additional therapies. On room air, home O2 need unlikely. GI Prophylaxis: Not indicated VTE Prophylaxis: Other (cardiac heparin gtt) VTE Mechanical Devices: Intermittant Pneumatic CD Resuscitation Status: DNR/DNI:Do Not Resuscitate/Intubate Attending Statement The patient was seen and examined together with Dr. Cross on 07/28/2015 and I agree with the history, exam and plan as outlined in the note above. BEATA CROSS DO Jul 28, 2016 17:13 Mark Ocampo MD Jul 29, 2016 10:06
[2016-07-28 18:00] VITALS: BP 128/52; PULSE 70; RESP 18; O2SAT 97
--- NOTE | 2016-07-28 18:35 | NUR ---
Transfer of care Pt being transferred to [facility] 239-2 from [facility] 3013. Pt denies pain. VSS. Report given to SYLVIE Rivas. All personal belongings and meds with pt.
[2016-07-28 20:15] VITALS: BP 161/55; PULSE 67; RESP 18; O2SAT 96
[2016-07-29] VITALS (10 sets, daily range): BP systolic 112–170; BP diastolic 53–74; PULSE 61–70; RESP 16–20; O2SAT 94–96
--- NOTE | 2016-07-29 07:18 | NUR ---
Cardiac Uneventful NOC. Denies CP throughout. VSS. Tolerating activities well. No overt complications noted.
[2016-07-29] MEDS: Furosemide 10 mg/mL 4 mL Inj IVPUSH SCH (08:27)
[2016-07-29] MEDS: Isosorbide Mononitrate 60 mg ER24 Tablet PO SCH (08:31)
[2016-07-29 09:49] LABS: BASOPHILS % (AUTO) 0.6 % (0-3); EOSINOPHILS % (AUTO) 7.9 % (0-5); MONOCYTES % (AUTO) 8.5 % (4-12); Mean Corpuscular Hemoglobin 30.6 pg (27.0-35.0); Mean Corpuscular Volume 97.8 fL (81-100); NEUTROPHILS % (AUTO) 56.2 % (40-74); Platelet Count 216 bil/L (150-400)
--- NOTE | 2016-07-29 12:16 | PCM.PNMED ---
Subjective Date of Service Jul 29, 2016 Subjective The patient is unchanged. She does not offer any new complaints and denies any chest pain, shortness of breath, cough, wheezing, nausea, or vomiting. Her blood pressure is still higher than I like to see it and she had a slight increase in her serum creatinine level. Otherwise her intake and output over the last 24 hours were 1860 [birth year]/03[birth year]1949 out. Urine for eosinophils are not back and her C4 and C3 levels were both normal. Exam Vital Signs Vital Sign - Last Date Time Temp Pulse Resp B/P Pulse Ox O2 Delivery O2 Flow Rate FiO2 07/29/16 08:02 36.8 68 19 170/74 96 Room Air 07/26/16 05:08 2.00 Intake and Output 07/28/16 07/28/16 07/29/16 Cumulative From/Thru 15:00 23:00 07:00 07/21/16 21:15 - 07/29/16 06:00 Intake Total 200 ml 1192 ml 814 ml 17301 ml Output Total 600 ml 650 ml 550 ml 97766 ml Balance -400 ml 542 ml 264 ml 3258 ml Intake Oral 200 ml 1000 ml 200 ml 8770 ml IV Total 192 ml 614 ml 5154 ml Output Urine Total 600 ml 650 ml 550 ml 08046 ml Urine/Stool Mix 1 ml # Bowel Movements 1 1 7 Exam Neck is supple without adenopathy thyromegaly or jugular venous distention. Lungs were clear to auscultation. Heart was removed with soft systolic murmur. Abdomen soft without any tenderness rebound guarding masses or hepatosplenomegaly. Extremities without shortness and clubbing cyanosis or edema. Skin turgor was good and there is no evidence of any rashes. Lab and Diagnostics Result Diagram: 07/29/1682407/29/16824 Microbiology Microbiology MONSTER STREP PNEUMONIAE AG URINE Final 07/22/16-0831 STREP PNEUMO AG POSITIVE Tests performed directly on clinical specimens are intended for screening purposes only and should augment, not replace, culture procedures Please Note: Streptococcus pneumoniae vaccine may cause false positive results in urine in the 48 hours following injection. Hence, it is recommended that the Alere Strep pneumoniae Antigen testing not be performed within five days of receiving the S. pneumoniae vaccine X-Rays, CTs and MRIs PROCEDURE: X-RAY CHEST ONE VIEW, PORTABLE ([id number]) IMPRESSION: Bibasilar pneumonia. Follow up plain films of the chest are recommended to ensure resolution, and to exclude underlying or central malignancy. Dictated by: Timothy Dwyer M.D. on 07/21/2016 at 18:54 Approved by: Timothy Dwyer M.D. on 07/21/2016 at 18:54 PROCEDURE: US ABDOMEN ([id number]) IMPRESSION: 1. Cholelithiasis. No ultrasound findings to suggest acute cholecystitis. 2. 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 3. Moderate left renal atrophy and a 1.4 cm cyst in the superior pole.. 4. Fusiform ectasia of distal abdominal aorta. There is aortic atherosclerosis. Dictated by: Sue Staples M.D. on 07/22/2016 at 18:58 Approved by: Sue Staples M.D. on 07/22/2016 at 18:58 PROCEDURE: X-RAY CHEST, TWO VIEWS ([id number]) IMPRESSION: 1. Cardiomegaly is new since 2006. 2. Pulmonary remote granulomatous disease. Dictated by: Ketan Kruse M.D. on 07/24/2016 at 11:41 Approved by: Ketan Kruse M.D. on 07/24/2016 at 11:41 12-lead ECG EKG: sinus rhythm with LBBB and first degree AV block Cardiac Echo Impressions ECHO Interpretation Summary The left ventricle is normal in size but left ventricular systolic function is moderate to severely reduced with the ejection fraction visually estimated to be 25-30%, now with a significant dyssynchronous contraction pattern, consistent with a conduction abnormality and moderate to severe global hypokinesis that is worse in the septum and apex. This is much more pronounced compared to the previous study and compared to the prior exam, left ventricular function has significantly decreased. The right ventricle is normal size and right ventricular systolic function is at the lower limits of normal. This is unchanged compared to the previous study. The right ventricular systolic pressure is estimated at 48 mmHg assuming a right atrial pressure of 3 mm Hg, and is likely significantly lower compared to the previous study. Both atria are normal in size and both atria have mildly decreased in size since the prior echo exam. There is moderate mitral regurgitation and moderate tricuspid regurgitation that appear less prominent compared to the previous study. There is mild aortic stenosis and mild aortic regurgitation that are unchanged compared to the previous study. The ascending aorta is at the upper limits of normal in size but is unchanged compared to the previous study. The patient was in probable sinus tachycardia with heart rates between 100- 120 bpm during the exam which is considerably faster compared to the previous study. Reading Physician:04:29 PM Assessment & Plan Impression #1 kidney injury possibly secondary to acute interstitial nephritis # 2 retention with hypertensive heart disease and hypertensive nephrosclerosis Recommendations #1 I would like to stop with potassium chloride and carvedilol and start her on labetalol 300 mg twice a day along with spironolactone 25 mg once a day. GI Prophylaxis: Not indicated VTE Prophylaxis: Other (cardiac heparin gtt) VTE Mechanical Devices: Intermittant Pneumatic CD Resuscitation Status: DNR/DNI:Do Not Resuscitate/Intubate David Thakkar DO Jul 29, 2016 12:16
--- NOTE | 2016-07-29 13:05 | PCM.PHAPRO ---
Progress dyspnea TPN #1 Patient ID: Indication for TPN: I. Volume Status/VS II. Chemistries III. Glycemic Control IV. Substrate PARENTERAL NUTRITION ORDERS 1 29-Jul-16 Standard Hang Time: 2100 Substrates Total kcal: 1023 AMINO ACIDS 73 g DEXTROSE 215 g Total Volume (mL): 1000 LIPIDS g Sterile Water for Injection QS mL To Infuse Over (hrs): 24 Total Volume 1000 mL At at a rate of (mL/hr): 42 Additives Sodium Chloride mEq "typical" daily requirements Sodium Acetate 20 mEq Sodium 50-120mEq Potassium Chloride 30 mEq Potassium 60-120mEq Potassium Phosphate 30 mEq Phosphate 20-40mEq Calcium Gluconate 9 mEq Magnesium 8-32mEq Magnesium Sulfate 12 mEq Calcium 9-22mEq POTASSIUM ACETATE 30 mEq Acetate* 80-120mEq Chloride* 80-120mEq Regular Insulin units *Depending on acid-base status Famotidine mg Multivitamins 1 std dose Insulin Regimen Trace Elements 1 std dose none Thiamine mg Regular Low Intensity Subcut Folic Acid mg Regular Medium Intensity Subcut Ascorbic Acid mg Regular High Intensity Subcut Regular Insulin Infusion Other: Special Instructions: To be infused via central line only. For delay or inturruption of TPN contact the pharmacist for alternative replacement solution. Stephan Villalba Pharm D Jul 29, 2016 13:05
--- NOTE | 2016-07-29 16:34 | PCM.PNMED ---
Subjective Date of Service Jul 29, 2016 Subjective No overnight events. Patient states she feels ok. Denies chest pain, irregular heart palpitations, shortness of breath. Anxious to be done with this hospitalization and return home. Exam Vital Signs Vital Sign - Last Date Time Temp Pulse Resp B/P Pulse Ox O2 Delivery O2 Flow Rate FiO2 07/29/16 15:48 Supplement Oxygen 07/29/16 13:53 36.7 61 20 124/63 96 07/26/16 05:08 2.00 Intake and Output 07/28/16 07/28/16 07/29/16 Cumulative From/Thru 15:00 23:00 07:00 07/21/16 21:15 - 07/29/16 06:00 Intake Total 200 ml 1192 ml 814 ml 64709 ml Output Total 600 ml 650 ml 550 ml 98781 ml Balance -400 ml 542 ml 264 ml 3258 ml Intake Oral 200 ml 1000 ml 200 ml 8770 ml IV Total 192 ml 614 ml 5154 ml Output Urine Total 600 ml 650 ml 550 ml 57466 ml Urine/Stool Mix 1 ml # Bowel Movements 1 1 7 Exam General: AAOx3; pleasant and cooperative; no acute distress HEENT: Atraumatic, normocephalic; sclera anicteric; mucus membranes moist Heart: Regular rate and rhythm Chest: Adequate air flow all bacon; no coarse sounds; no wheeze Abdomen: Soft, nontender, nondistended Extremities: No edema Skin: Warm, dry Lab and Diagnostics Result Diagram: 07/29/1682407/29/16 0825 Microbiology Microbiology MONSTER STREP PNEUMONIAE AG URINE Final 07/22/16-0831 STREP PNEUMO AG POSITIVE Tests performed directly on clinical specimens are intended for screening purposes only and should augment, not replace, culture procedures Please Note: Streptococcus pneumoniae vaccine may cause false positive results in urine in the 48 hours following injection. Hence, it is recommended that the Alere Strep pneumoniae Antigen testing not be performed within five days of receiving the S. pneumoniae vaccine X-Rays, CTs and MRIs PROCEDURE: X-RAY CHEST ONE VIEW, PORTABLE ([id number]) IMPRESSION: Bibasilar pneumonia. Follow up plain films of the chest are recommended to ensure resolution, and to exclude underlying or central malignancy. Dictated by: Timothy Dwyer M.D. on 07/21/2016 at 18:54 Approved by: Timothy Dwyer M.D. on 07/21/2016 at 18:54 PROCEDURE: US ABDOMEN ([id number]) IMPRESSION: 1. Cholelithiasis. No ultrasound findings to suggest acute cholecystitis. 2. 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 3. Moderate left renal atrophy and a 1.4 cm cyst in the superior pole.. 4. Fusiform ectasia of distal abdominal aorta. There is aortic atherosclerosis. Dictated by: Sue Staples M.D. on 07/22/2016 at 18:58 Approved by: Sue Staples M.D. on 07/22/2016 at 18:58 PROCEDURE: X-RAY CHEST, TWO VIEWS ([id number]) IMPRESSION: 1. Cardiomegaly is new since 2006. 2. Pulmonary remote granulomatous disease. Dictated by: Ketan Kruse M.D. on 07/24/2016 at 11:41 Approved by: Ketan Kruse M.D. on 07/24/2016 at 11:41 12-lead ECG EKG: sinus rhythm with LBBB and first degree AV block Cardiac Echo Impressions ECHO Interpretation Summary The left ventricle is normal in size but left ventricular systolic function is moderate to severely reduced with the ejection fraction visually estimated to be 25-30%, now with a significant dyssynchronous contraction pattern, consistent with a conduction abnormality and moderate to severe global hypokinesis that is worse in the septum and apex. This is much more pronounced compared to the previous study and compared to the prior exam, left ventricular function has significantly decreased. The right ventricle is normal size and right ventricular systolic function is at the lower limits of normal. This is unchanged compared to the previous study. The right ventricular systolic pressure is estimated at 48 mmHg assuming a right atrial pressure of 3 mm Hg, and is likely significantly lower compared to the previous study. Both atria are normal in size and both atria have mildly decreased in size since the prior echo exam. There is moderate mitral regurgitation and moderate tricuspid regurgitation that appear less prominent compared to the previous study. There is mild aortic stenosis and mild aortic regurgitation that are unchanged compared to the previous study. The ascending aorta is at the upper limits of normal in size but is unchanged compared to the previous study. The patient was in probable sinus tachycardia with heart rates between 100- 120 bpm during the exam which is considerably faster compared to the previous study. Reading Physician:04:29 PM Assessment & Plan Patient is an 80-year-old female with a history of congestive heart failure, hypertension, dyslipidemia, paroxysmal atrial fibrillation, and chronic kidney disease, admitted for dyspnea and chest pain; found to have bilateral S. pneumoniae pneumonia and elevated troponin indicative of NSTEMI. Heparin gtt initiated, antibiotics initiated. - Hospital day 7 1. Acute coronary syndrome, present on admission. Ongoing - Cardiology consulted- We appreciate the input and recommendations - Likely NSTEMI - Patient with LBBB and 1st degree AV block - Risk factors for ACS includes: CAD, dyslipidemia, hypertension, family history - Possible etiologies include: CHF exacerbation, pneumonia, CKD - Elevated troponin begin to trend down : 0.369, 0,350, 0.305, 0.245, 0.218 - D/C cardiac heparin gtt - Telemetry - Aspirin and Clopidogrel - Stress test showed a completed anterior infarct. Per Dr. Krishnamurthy, the risk of cardiac catheterization is prohibitive. Dr. Jain, pt's grab setter agrees 2. Bibasilar pneumonia, acute, present on admission. Resolved. - Chest x-ray reads bibasilar pneumonia - Positive for Strep pneumo urine AG - Negative respiratory viral PCR - Repeat chest x-ray does not show bibasilar opacities - Patient completely asymptomatic - Antibiotics stopped azithromycin, ceftriaxone - Procalcitonin 0.52 3. Chronic systolic and diastolic heart failure, acute, present on admission. Presumed stable -- Pro-BNP 37031. Repeat pro-BNP 07/24/16: 21671, 29064 -ECHO done on 07/22/16: Compared to previous study left ventricular function has significantly decreased. EF 20-35%, moderate to severe global hypokinesis worse in the septum and apex. Moderate mitral and tricupsid regurgitation, mild aortic stenosis and regurgitation. - Evaluation by Dr. Pena to discuss cardiac resynchronization therapy ordered by Dr. Krishnamurthy 4. Acute transaminitis, present on admission. Resolved - Possibly secondary to hepatic congestion secondary to #3, statin toxicity, cholecystitis - US abdomen done 07/22/16: Cholelithiasis. No ultrasound findings to suggest acute cholecystitis. - Pravastatin 40 mg qd - Acute hepatitis panel: negative - AST and ALT almost back to within range. Continue to follow with daily CMP 5. Hypertension with Hypertensive heart disease, chronic, present no admission - s/p left renal artery stent 2008 with moderately atrophic left kidney: BP mildly elevated - Patient will benefit from aggressive BP control with the goal of <120/80 - Continue hydralazine 100mg tid - Increase imdur from 60mg daily to 120mg daily - D/C Carvedilol per nephrology - Continue amlodipine 5mg daily - Continue furosemide 20mg IV daily 6. Dyslipidemia, chronic, present on admission - Continue home atorvastatin 40 mg 7. Acute Kidney Injury on Chronic kidney disease, present on admission, worsening - Cr 2.32. Creatinine was 1.84 on admission - Nephrology consult - Check iron studies along with a serum protein electrophoresis,uric acid and urine free eosinophils along with a C3 and a C4 level per Dr. Thakkar - IV hydration and half normal saline at 80 mL/hr x 24hr per nephrology - Aranesp 60 mg in an attempt to improve her oxygen carrying capacity per nephrology - Per nephrology: kidney injury possibly secondary to acute interstitial nephritis and retention with hypertensive heart disease and hypertensive nephrosclerosis - Stop with potassium chloride and carvedilol - Start Labetalol 300 mg twice a day and Spironolactone 25 mg once a day 8. Paroxysmal Atrial Fibrillation, chronic, present on admission. Presumed stable - In sinus rhythm today - Will continue carvedilol as above 9. Generalized aches and malaise, not present on admission. Resolved - Likely secondary to decreased activity and bedrest - Encourage ambulation/ up with meals - Negative for flu type A and B Dispo: Due to current cardiac condition, heparin gtt continues. Anticipated DC 1 -2 days. No anticipated needs. Pt cleared for home with no additional therapies. On room air, home O2 need unlikely. GI Prophylaxis: Not indicated VTE Prophylaxis: Other (cardiac heparin gtt) VTE Mechanical Devices: Intermittant Pneumatic CD Resuscitation Status: DNR/DNI:Do Not Resuscitate/Intubate Attending Statement The patient was seen and examined together with Dr. Cross on 07/29/2016 and I agree with the history, exam and plan as outlined in the note above. BEATA CROSS DO Jul 29, 2016 16:34 Mark Ocampo MD Jul 30, 2016 10:02
--- NOTE | 2016-07-29 17:23 | NUR ---
HTN Pt's BP this am at 170/74, given scheduled Hydralazine, Lasix and Norvasc. BP better at 124/63. Pt later started on Spirolactone. Pt has denied pain or discomfort all shift, tolerating diet well without c/o nausea. Family at bedside most of the day. Pt calm and coop with care, using call light approp for all needs.
[2016-07-30] VITALS (9 sets, daily range): BP systolic 113–157; BP diastolic 45–74; PULSE 60–76; RESP 16–20; O2SAT 94–96
--- NOTE | 2016-07-30 03:28 | PROG NOTE ---
[address] [address] PROGRESS NOTE PATIENT: WILLIE ACOSTA : 1935 MR#: [id number] ADMIT: 07/21/2016 JOB ID: [id number] DATE: 07/29/2016 CHIEF COMPLAINT: Chest pain and shortness of breath. SUBJECTIVE: The patient says she feels better. OBJECTIVE: Vital signs: Temperature 36.5, blood pressure 112/53, up to 120/74, pulse 61, she is satting 95% to 96% on room air. I's and O's: She is in more than out by 614 mL. A very pleasant older lady in no apparent distress. Eyes: No scleral icterus. Heart: Normal S1, S2, a 3/6 holosystolic murmur at the apex, a 2/6 systolic ejection murmur at right upper sternal border. Lungs are clear to auscultation anteriorly. Abdomen is soft, nontender. Skin with no rashes or lesions. No edema. LABORATORY AND RADIOLOGY REVIEW: Patient is anemic. Troponin T peaked at 0.458. Creatinine 2.25. Echo performed July 22 showed EF 29% to 30% with wide QRS complexes. She has moderate mitral regurgitation. Mild aortic stenosis. Pharmacologic stress test showed a medium-sized fixed distal anterior wall and apical perfusion defect consistent with nontransmural infarction, completely unchanged compared to prior study November 2015. systolic function showed significant decline from 40% to 45% in November 2015 to now 25% to 30%. ASSESSMENT AND PLAN: 1. This is a complicated patient. There are multiple doctors managing this patient. I see the patient has been started on dual antiplatelet therapy by Dr. Mayfield, and I presume this was done for cure trial, and he anticipates that she will have one year of dual antiplatelet. I think that is fine. Of course, that puts this 80-year-old woman at risk for bleeding, but whether she is truly eligible for the medication can be reassessed as an outpatient. My personal concern is that her hematocrit was 34% on admission, now it is 31%, but ultimately Dr. Jain can decide as an outpatient whether to keep Plavix or to discontinue it. 2. Congestive heart failure. I see that Dr. Thakkar of the Nephrology team discontinued carvedilol 25 mg twice daily and started patient on labetalol 300 mg twice a day. I will discuss with him in person a little bit more about the choice of beta-jeanne in this woman with congestive heart failure, and together we will come up with the best possible medication for this lady. 3. I see that hydralazine 100 mg 3 times a day was initiated and she has continued her outpatient isosorbide mononitrate, and I agree with that adjustment. 4. In terms of antianginal therapy, she is continued on her home amlodipine 5 mg twice a day, and I agree with that. 5. In terms of cardiomyopathy, she is not eligible for KIMMY inhibitor or ARBs due to renal insufficiency. I see that Dr. Thakkar started her on spironolactone and I think that is reasonable. Thank you very much for the opportunity to participate in this patient's care. Will have a little conversation with the Nephrology team and together will come up with the best possible beta-jeanne for this complex woman. In my opinion, she is ready to go home and should be discharged on the 6th. KASSIDYD
--- NOTE | 2016-07-30 06:21 | NUR ---
Cardiac Rhythm Pt in 1st degree HB at 0.22 KY interval, HR 60-70, VSS. At 0130 KY interval increases suddenly to 0.38, Stat EKG shows KY of 0.374. MD floresita MD reviewed EKG and orders received for repeat EKG at 0500. At 0600 pt has 8 beats VTach, no symptoms and VSS, with return of KY interval to 0.22. MD made aware, orders to be received for magnesium and potassium labs.
[2016-07-30 06:49] LABS: BASOPHILS % (AUTO) 0.7 % (0-3); MONOCYTES % (AUTO) 9.4 % (4-12); Mean Corpuscular Hemoglobin 30.9 pg (27.0-35.0); Mean Corpuscular Volume 98.3 fL (81-100); NEUTROPHILS % (AUTO) 42.3 % (40-74); Platelet Count 197 bil/L (150-400)
[2016-07-30] MEDS: Furosemide 10 mg/mL 2 mL Inj IVPUSH SCH (08:24)
[2016-07-30] MEDS: Isosorbide Mononitrate 60 mg ER24 Tablet PO SCH (08:25)
[2016-07-30] MEDS ORDERED: Magnesium Chloride SR 64 mg ER24 Tablet PO ONE (08:50)
--- NOTE | 2016-07-30 09:22 | NUR ---
NUTRITION ASSESSMENT: ASSESS: Pt is a 80yo F admitted for pneumonia and chest pain. Pt's pneumonia is resolved. Cardiology is following for chest pain. Pt's wt. has remained stable throughout hospital stay. PO intake remains adequate at 75-100% of most meals. PMHX: HTN, AV Block, HLD, Afib, CKD, CHF LABS: Cl 109, BUN 29, Cr 2.61, Gluc 100, Mg 1.5 MEDS: Spironolactone, Lipitor, Vit D3, Pepcid GI: BM x2 SKIN: Jean [place] 22 CURRENT WTS: 55.5 kg, BMI 23.9 kg/M2, admit wt 56.7kg DIET: Heart Healthy, PO 75-100% EST. NEEDS: Kcals: 1006-1168 kcal/d (25-30 kcal/kg) Pro: 56-70g/d (1-1.2g/kg) NUTRITION DIAGNOSIS: 1.) No nutrition diagnosis at this time. NUTRITION INTERVENTION: 1.) Continue current diet. 2.) Encourage PO intake. MONITOR / EVAL: Wt, PO intake, labs, GI, POC. Will continue to monitor pt per low nutritional risk guidelines. Addendum: 07/30/16 at [address] I have read and agree with above student documentation. Becca Durand RD, CD
--- NOTE | 2016-07-30 11:16 | PCM.PNMED ---
Subjective Date of Service Jul 30, 2016 Subjective Patient's blood pressure is improved with fluid the change in her blood pressure medicine from carvedilol to labetalol. The reason behind this is that although there is same class pressure response was less than optimal on a high- dose of carvedilol (25 mg twice a day). I feel that her risk of uncontrolled hypertension namely her increased risk of stroke, worsening of her cardiac issues, and renal disease necessitated aggressive control of her blood pressure for tracheal labetalol would be in this case much better choice but she will have adequate beta-blockade. She was having a bowel movement increase in her AK interval and I will decrease her labetalol dose to 200 mg twice a day down from 300. Otherwise the patient is asymptomatic and is feeling well. Renal function continues to improve. Exam Vital Signs Vital Sign - Last Date Time Temp Pulse Resp B/P Pulse Ox O2 Delivery O2 Flow Rate FiO2 07/30/16 08:47 36.6 75 130/45 95 Room Air 07/30/16 02:39 16 07/26/16 05:08 2.00 Intake and Output 07/29/16 07/29/16 07/30/16 Cumulative From/Thru 15:00 23:00 07:00 07/21/16 21:15 - 07/30/16 05:31 Intake Total 500 ml 1654 ml 49976 ml Output Total 150 ml 500 ml 1250 ml 26336 ml Balance -150 ml 0 ml 404 ml 3512 ml Intake Oral 500 ml 200 ml 9470 ml IV Total 1454 ml 6608 ml Output Urine Total 150 ml 500 ml 1250 ml 15975 ml Urine/Stool Mix 1 ml # Voids 1 2 3 # Bowel Movements 1 0 8 Exam Neck is supple without adenopathy thyromegaly or jugular venous distention. Lungs are clear to auscultation. Heart is regular. Her abdomen is soft without any tenderness or rebound guarding masses or hepatosplenomegaly. Extremities do not show significant clubbing cyanosis or edema. Lab and Diagnostics Result Diagram: 07/30/1653907/30/16539 Microbiology Microbiology MONSTER STREP PNEUMONIAE AG URINE Final 07/22/16-0831 STREP PNEUMO AG POSITIVE Tests performed directly on clinical specimens are intended for screening purposes only and should augment, not replace, culture procedures Please Note: Streptococcus pneumoniae vaccine may cause false positive results in urine in the 48 hours following injection. Hence, it is recommended that the Alere Strep pneumoniae Antigen testing not be performed within five days of receiving the S. pneumoniae vaccine X-Rays, CTs and MRIs PROCEDURE: X-RAY CHEST ONE VIEW, PORTABLE ([id number]) IMPRESSION: Bibasilar pneumonia. Follow up plain films of the chest are recommended to ensure resolution, and to exclude underlying or central malignancy. Dictated by: Timothy Dwyer M.D. on 07/21/2016 at 18:54 Approved by: Timothy Dwyer M.D. on 07/21/2016 at 18:54 PROCEDURE: US ABDOMEN ([id number]) IMPRESSION: 1. Cholelithiasis. No ultrasound findings to suggest acute cholecystitis. 2. 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 3. Moderate left renal atrophy and a 1.4 cm cyst in the superior pole.. 4. Fusiform ectasia of distal abdominal aorta. There is aortic atherosclerosis. Dictated by: Sue Staples M.D. on 07/22/2016 at 18:58 Approved by: Sue Staples M.D. on 07/22/2016 at 18:58 PROCEDURE: X-RAY CHEST, TWO VIEWS ([id number]) IMPRESSION: 1. Cardiomegaly is new since 2006. 2. Pulmonary remote granulomatous disease. Dictated by: Ketan Kruse M.D. on 07/24/2016 at 11:41 Approved by: Ketan Kruse M.D. on 07/24/2016 at 11:41 12-lead ECG EKG: sinus rhythm with LBBB and first degree AV block Cardiac Echo Impressions ECHO Interpretation Summary The left ventricle is normal in size but left ventricular systolic function is moderate to severely reduced with the ejection fraction visually estimated to be 25-30%, now with a significant dyssynchronous contraction pattern, consistent with a conduction abnormality and moderate to severe global hypokinesis that is worse in the septum and apex. This is much more pronounced compared to the previous study and compared to the prior exam, left ventricular function has significantly decreased. The right ventricle is normal size and right ventricular systolic function is at the lower limits of normal. This is unchanged compared to the previous study. The right ventricular systolic pressure is estimated at 48 mmHg assuming a right atrial pressure of 3 mm Hg, and is likely significantly lower compared to the previous study. Both atria are normal in size and both atria have mildly decreased in size since the prior echo exam. There is moderate mitral regurgitation and moderate tricuspid regurgitation that appear less prominent compared to the previous study. There is mild aortic stenosis and mild aortic regurgitation that are unchanged compared to the previous study. The ascending aorta is at the upper limits of normal in size but is unchanged compared to the previous study. The patient was in probable sinus tachycardia with heart rates between 100- 120 bpm during the exam which is considerably faster compared to the previous study. Reading Physician:04:29 PM Assessment & Plan Impression #1 acute kidney injury which appears to be stable and I have yet to exclude acute interstitial nephritis as a component however her urine for eosinophils, back from the lab. #2 hypertension with hypertensive heart disease and hypertensive nephrosclerosis Recommendations #1 I will decrease her labetalol to 200 mg twice a day and from my point of view she can be discharged. I would like to have her follow-up with her outside cord cutter*surface all she feels comfortable with within the next month. GI Prophylaxis: Not indicated VTE Prophylaxis: Other (cardiac heparin gtt) VTE Mechanical Devices: Intermittant Pneumatic CD Resuscitation Status: DNR/DNI:Do Not Resuscitate/Intubate David Thakkar DO Jul 30, 2016 11:16
[2016-07-30] MEDS ORDERED: Magnesium Sulf 2 Gm/50mL Water 2 GM in IV Premix 1 EACH IV ONE (12:05)
--- NOTE | 2016-07-30 13:27 | PCM.PNMED ---
Subjective Date of Service Jul 30, 2016 Subjective Patient is stable, denies chest pain, shortness of breath, nausea. She had AL interval increase last night and 8 beats of Vtac after which her AL went back to baseline at 0.22. On repeat EKG this morning patient was in SR with AL at 0.196. Patient states she feels fine and is eager to go home. Exam Vital Signs Vital Sign - Last Date Time Temp Pulse Resp B/P Pulse Ox O2 Delivery O2 Flow Rate FiO2 07/30/16 11:35 36.6 60 18 115/50 95 Room Air 07/26/16 05:08 2.00 Intake and Output 07/29/16 07/29/16 07/30/16 Cumulative From/Thru 15:00 23:00 07:00 07/21/16 21:15 - 07/30/16 05:31 Intake Total 500 ml 1654 ml 04670 ml Output Total 150 ml 500 ml 1250 ml 85774 ml Balance -150 ml 0 ml 404 ml 3512 ml Intake Oral 500 ml 200 ml 9470 ml IV Total 1454 ml 6608 ml Output Urine Total 150 ml 500 ml 1250 ml 47558 ml Urine/Stool Mix 1 ml # Voids 1 2 3 # Bowel Movements 1 0 8 Exam General: AAOx3; pleasant and cooperative; no acute distress HEENT: Atraumatic, normocephalic; sclera anicteric; mucus membranes moist Heart: Regular rate and rhythm Chest: Adequate air flow all bacon; no coarse sounds; no wheeze Abdomen: Soft, nontender, nondistended Extremities: No edema Skin: Warm, dry Lab and Diagnostics Result Diagram: 07/30/1640 07/30/16539 Microbiology Microbiology MONSTER STREP PNEUMONIAE AG URINE Final 07/22/16-0831 STREP PNEUMO AG POSITIVE Tests performed directly on clinical specimens are intended for screening purposes only and should augment, not replace, culture procedures Please Note: Streptococcus pneumoniae vaccine may cause false positive results in urine in the 48 hours following injection. Hence, it is recommended that the Alere Strep pneumoniae Antigen testing not be performed within five days of receiving the S. pneumoniae vaccine X-Rays, CTs and MRIs PROCEDURE: X-RAY CHEST ONE VIEW, PORTABLE ([id number]) IMPRESSION: Bibasilar pneumonia. Follow up plain films of the chest are recommended to ensure resolution, and to exclude underlying or central malignancy. Dictated by: Timothy Dwyer M.D. on 07/21/2016 at 18:54 Approved by: Timothy Dwyer M.D. on 07/21/2016 at 18:54 PROCEDURE: US ABDOMEN ([id number]) IMPRESSION: 1. Cholelithiasis. No ultrasound findings to suggest acute cholecystitis. 2. 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 3. Moderate left renal atrophy and a 1.4 cm cyst in the superior pole.. 4. Fusiform ectasia of distal abdominal aorta. There is aortic atherosclerosis. Dictated by: Sue Staples M.D. on 07/22/2016 at 18:58 Approved by: Sue Staples M.D. on 07/22/2016 at 18:58 PROCEDURE: X-RAY CHEST, TWO VIEWS ([id number]) IMPRESSION: 1. Cardiomegaly is new since 2006. 2. Pulmonary remote granulomatous disease. Dictated by: Ketan Kruse M.D. on 07/24/2016 at 11:41 Approved by: Ketan Kruse M.D. on 07/24/2016 at 11:41 12-lead ECG EKG: sinus rhythm with LBBB and first degree AV block Cardiac Echo Impressions ECHO Interpretation Summary The left ventricle is normal in size but left ventricular systolic function is moderate to severely reduced with the ejection fraction visually estimated to be 25-30%, now with a significant dyssynchronous contraction pattern, consistent with a conduction abnormality and moderate to severe global hypokinesis that is worse in the septum and apex. This is much more pronounced compared to the previous study and compared to the prior exam, left ventricular function has significantly decreased. The right ventricle is normal size and right ventricular systolic function is at the lower limits of normal. This is unchanged compared to the previous study. The right ventricular systolic pressure is estimated at 48 mmHg assuming a right atrial pressure of 3 mm Hg, and is likely significantly lower compared to the previous study. Both atria are normal in size and both atria have mildly decreased in size since the prior echo exam. There is moderate mitral regurgitation and moderate tricuspid regurgitation that appear less prominent compared to the previous study. There is mild aortic stenosis and mild aortic regurgitation that are unchanged compared to the previous study. The ascending aorta is at the upper limits of normal in size but is unchanged compared to the previous study. The patient was in probable sinus tachycardia with heart rates between 100- 120 bpm during the exam which is considerably faster compared to the previous study. Reading Physician:04:29 PM Assessment & Plan Patient is an 80-year-old female with a history of congestive heart failure, hypertension, dyslipidemia, paroxysmal atrial fibrillation, and chronic kidney disease, admitted for dyspnea and chest pain; found to have bilateral S. pneumoniae pneumonia and elevated troponin indicative of NSTEMI. Hospital day 8 1. Acute Kidney Injury on Chronic kidney disease, present on admission, ongoing - Kidney injury possibly secondary to acute interstitial nephritis and retention with hypertensive heart disease and hypertensive nephrosclerosis - Cr 2.61 today. Creatinine was 1.84 on admission - Serum protein electrophoresis, urine free eosinophils pending - Decrease Labetalol to 200 mg twice a day. Continue Spironolactone 25 mg once a day - Per Dr. Thakkar, patient can be discharged with close follow up as an outpatient 2. Chronic systolic and diastolic heart failure, acute, present on admission, presumed stable -- Pro-BNP 35262. Repeat pro-BNP 07/24/16: 26432, 90777 -ECHO done on 07/22/16: Compared to previous study left ventricular function has significantly decreased. EF 20-35%, moderate to severe global hypokinesis worse in the septum and apex. Moderate mitral and tricupsid regurgitation, mild aortic stenosis and regurgitation. - Lasix 20 mg IV qd 3. Hypertension with Hypertensive heart disease, chronic, present no admission - s/p left renal artery stent 2008 with moderately atrophic left kidney: BP mildly elevated - Patient will benefit from aggressive BP control with the goal of <120/80 - Continue hydralazine 100mg tid - Continue Imdur 120mg daily - Continue amlodipine 5mg daily - Continue furosemide 20mg IV daily 4. Paroxysmal Atrial Fibrillation, chronic, present on admission. Presumed stable - In sinus rhythm today - Labetalol 200 mg PO bid - Mg 1.5, replenished with MgCL 64 mg PO x 1 and MgSO4 2 gm IV x 1 - Monitor labs 5. Acute coronary syndrome, present on admission. Resolved - Likely NSTEMI - Patient with LBBB and 1st degree AV block - Risk factors for ACS includes: CAD, dyslipidemia, hypertension, family history - Aspirin and Clopidogrel - Stress test showed a completed anterior infarct. Per Dr. Krishnamurthy, the risk of cardiac catheterization is prohibitive. 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 Bibasilar pneumonia, acute, present on admission. Resolved. - Chest x-ray reads bibasilar pneumonia - Positive for Strep pneumo urine AG - Negative respiratory viral PCR - Patient completely asymptomatic - Antibiotics stopped azithromycin, ceftriaxone - Procalcitonin 0.52 7. Acute transaminitis, present on admission. Resolved - Possibly secondary to hepatic congestion secondary to #3, statin toxicity, cholecystitis - US abdomen done 07/22/16: Cholelithiasis. No ultrasound findings to suggest acute cholecystitis. - Pravastatin 40 mg qd - Acute hepatitis panel: negative - AST and ALT almost back to within range. Continue to follow with daily CMP 8. Dyslipidemia, chronic, present on admission - Continue home atorvastatin 40 mg 9. Generalized aches and malaise, not present on admission. Resolved - Likely secondary to decreased activity and bedrest - Encourage ambulation/ up with meals - Negative for flu type A and B Dispo: HOME tomorrow GI Prophylaxis: Not indicated VTE Prophylaxis: Other (cardiac heparin gtt) VTE Mechanical Devices: Intermittant Pneumatic CD Resuscitation Status: DNR/DNI:Do Not Resuscitate/Intubate Attending Statement The patient was seen and examined together with Dr. Cross on 07/30/2015 and I agree with the history, exam and plan as outlined in the note above. BEATA CROSS DO Jul 30, 2016 13:27 Mark Ocampo MD Jul 31, 2016 09:14
--- NOTE | 2016-07-30 15:14 | NUR ---
Social Work: Readiness for discharge D: Pt discussed in morning rounds. Pt is not medically stable for d/c home yet but is anticipated to d/c home tomorrow. Pt has been I during admission and was cleared by PT to go home on the . Pt lives at home with her spouse and is I. EMR reviewed; no sw needs identified at this time. A: Pt who is I at baseline. P: Anticipate pt to discharge home via POV with no sw needs identified; [employer]DER to continue to follow KATIE Molina
--- NOTE | 2016-07-30 16:01 | NUR ---
CARDIAC/EKG/RENAL P-Patient had run of V tack eight beats at [address]600. CT intraval 374 at 0235. Cr. 2.6 I-Mg rider given, second EKG done at 0830, and Nephrology consult today. E- No more V tack this shift, 0830 EKG pr intraval 190, patient voiding 400ml urine so far this shift. LABS- Cr. 2.6, Tr0p 0.218, APPT 72.8 NEURO- LOC X2, appears confused at times. CVS- SR 60-70'S Per hall monitor, see above note. PLUM-RA - BM today. GI- 400ml IV - I/2 NS 60 plan- d/c Tuesday follow up appointments nephrology and cardiology.
--- NOTE | 2016-07-30 16:56 | NUR ---
TOOK OVER PATIENT CARE [id number]
--- NOTE | 2016-07-30 22:14 | NUR ---
Activity Pt up OOB to BSC. She has a steady gait. SBA only. Pleasant and cooperative. Consistent with call light Will cont to monitor
[2016-07-31 03:44] VITALS: BP 116/56; PULSE 71; RESP 20; O2SAT 95
[2016-07-31 06:22] VITALS: PULSE 69
[2016-07-31] MEDS: Furosemide 10 mg/mL 2 mL Inj IVPUSH SCH (07:58)
[2016-07-31] MEDS: Isosorbide Mononitrate 60 mg ER24 Tablet PO SCH (07:59)
[2016-07-31 08:08] LABS: BASOPHILS % (AUTO) 0.7 % (0-3); MONOCYTES % (AUTO) 9.1 % (4-12); Mean Corpuscular Hemoglobin 31.2 pg (27.0-35.0); Mean Corpuscular Volume 96.6 fL (81-100); Platelet Count 186 bil/L (150-400)
[2016-07-31 08:33] LABS: Magnesium 2.2 mg/dL (1.6-2.6)
[2016-07-31 08:50] VITALS: BP 128/68; PULSE 79; RESP 20; O2SAT 95
--- NOTE | 2016-07-31 09:19 | PCM.DIMED ---
BEATA CROSS DO 07/31/16 0919: Discharge Instructions Date of Service Jul 31, 2016 Dates of Hospitalization Jul 21, 2016 at 19:57 Discharge Diagnosis Discharge Diagnosis 1. Acute Kidney Injury on Chronic kidney disease, present on admission, improving 2. Chronic systolic and diastolic heart failure, acute, present on admission, presumed stable 3. Hypertension with Hypertensive heart disease, chronic, present no admission 4. Paroxysmal Atrial Fibrillation, chronic, present on admission, presumed stable 5. Acute coronary syndrome, present on admission. Resolved 6. Bibasilar pneumonia, acute, present on admission. Resolved 7. Acute transaminitis, present on admission. Resolved 8. Dyslipidemia, chronic, present on admission, stable 9. Generalized aches and malaise, not present on admission. Resolved Medication Instructions Continue hydralazine 100mg three times a day Continue Imdur 60mg twice a day Continue amlodipine 5mg twice a day Continue furosemide 20mg daily Continue labetalol 200mg twice a day Continue spironolactone 25 mg daily Continue aspirin 81 mg daily Continue clopidogrel 75 mg daily Continue all your other home medications. Diet Heart Healthy Activity Limited until seen by PCP Call your provider Fever or Chills, Shortness of breath, Bleeding, Chest pain, Vomitting, Excessive diarrhea, Weakness (unilateral) Patient Instructions Follow-up plan Please schedule an appointment and follow up with your pathology collector next week. Follow-up Provider: Ghulam Mukherjee MD Follow-up with PCP in: 2 weeks Provider: Vipin Jain MD Follow-up in: 1 week Mark Ocampo MD 08/01/16 1119: BEATA CROSS DO Jul 31, 2016 09:19 Mark Ocampo MD Aug 01, 2016 11:19
[2016-07-31] MEDS ORDERED: HYDR100T27 PO (09:25)
[2016-07-31] MEDS ORDERED: LABE200T PO ×2 (09:27→09:31)
[2016-07-31] MEDS ORDERED: SPIR25TA3 PO (09:29)
[2016-07-31 09:46] VITALS: PULSE 66
--- NOTE | 2016-07-31 12:08 | NUR ---
Discharge Patient left floor via wheelchair to be driven home by family at 1207. All d/c information discussed and understood including medications and follow up information. IV d/c'd intact. All belongings left with patient.
--- NOTE | 2016-07-31 15:52 | PCM.DC.MED ---
Discharge Summary Date of Service Jul 31, 2016 Dates of Hospitalization Date of Hospital Admission Jul 21, 2016 at 19:57 Date of Discharge: Jul 31, 2016 Providers: Admitting Physician: Becca Segal MD Primary Care Physician: Ghulam Mukherjee MD Attending Physician: Becca Segal MD Diagnosis at Time of Discharge Diagnosis at Time of Discharge 1. Acute Kidney Injury on Chronic kidney disease, present on admission, improving 2. Chronic systolic and diastolic heart failure, acute, present on admission, presumed stable 3. Hypertension with Hypertensive heart disease, chronic, present no admission 4. Paroxysmal Atrial Fibrillation, chronic, present on admission, presumed stable 5. Acute coronary syndrome, present on admission. Resolved 6. Bibasilar pneumonia, acute, present on admission. Resolved 7. Acute transaminitis, present on admission. Resolved 8. Dyslipidemia, chronic, present on admission, stable 9. Generalized aches and malaise, not present on admission. Resolved Consultations Cardiology, [facility] Nephrology, [facility] Procedures XRay, CTs & MRIs PROCEDURE: X-RAY CHEST ONE VIEW, PORTABLE ([id number]) IMPRESSION: Bibasilar pneumonia. Follow up plain films of the chest are recommended to ensure resolution, and to exclude underlying or central malignancy. Dictated by: Timothy Dwyer M.D. on 07/21/2016 at 18:54 Approved by: Timothy Dwyer M.D. on 07/21/2016 at 18:54 PROCEDURE: US ABDOMEN ([id number]) IMPRESSION: 1. Cholelithiasis. No ultrasound findings to suggest acute cholecystitis. 2. 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 3. Moderate left renal atrophy and a 1.4 cm cyst in the superior pole.. 4. Fusiform ectasia of distal abdominal aorta. There is aortic atherosclerosis. Dictated by: Sue Staples M.D. on 07/22/2016 at 18:58 Approved by: Sue Staples M.D. on 07/22/2016 at 18:58 PROCEDURE: X-RAY CHEST, TWO VIEWS ([id number]) IMPRESSION: 1. Cardiomegaly is new since 2006. 2. Pulmonary remote granulomatous disease. Dictated by: Ketan Kruse M.D. on 07/24/2016 at 11:41 Approved by: Ketan Kruse M.D. on 07/24/2016 at 11:41 ECG 12 Lead EKG: sinus rhythm with LBBB and first degree AV block Cardiac Echo Impression ECHO Interpretation Summary The left ventricle is normal in size but left ventricular systolic function is moderate to severely reduced with the ejection fraction visually estimated to be 25-30%, now with a significant dyssynchronous contraction pattern, consistent with a conduction abnormality and moderate to severe global hypokinesis that is worse in the septum and apex. This is much more pronounced compared to the previous study and compared to the prior exam, left ventricular function has significantly decreased. The right ventricle is normal size and right ventricular systolic function is at the lower limits of normal. This is unchanged compared to the previous study. The right ventricular systolic pressure is estimated at 48 mmHg assuming a right atrial pressure of 3 mm Hg, and is likely significantly lower compared to the previous study. Both atria are normal in size and both atria have mildly decreased in size since the prior echo exam. There is moderate mitral regurgitation and moderate tricuspid regurgitation that appear less prominent compared to the previous study. There is mild aortic stenosis and mild aortic regurgitation that are unchanged compared to the previous study. The ascending aorta is at the upper limits of normal in size but is unchanged compared to the previous study. The patient was in probable sinus tachycardia with heart rates between 100- 120 bpm during the exam which is considerably faster compared to the previous study. Reading Physician:04:29 PM Brief History Per Admitting Physician: Becca Segal MD: Patient is an 80-year-old female with a history of congestive heart failure, hypertension, dyslipidemia, paroxysmal atrial fibrillation, and chronic kidney disease who presents to the ED via EMS complaining of dyspnea and chest pressure /tightness. Patient is accompanied by her at bedside at time of visit. Patient reports onset of dyspnea and chest pressure about two days ago. Patient' s states the patient slept for most of the day awoke in the afternoon with complaints of worsening shortness of breath and chest pain while at rest. Patient checked her O2 sat and at that time was 83% on room air. 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 EMS was summoned and the patient reports improvement in her dyspnea and chest pressure after their arrival and after receiving sublingual nitro. Patient reports associated diaphoresis, nausea and an episode of emesis. She otherwise denies radiation with the chest pain, lower extremity edema, abdominal pain, fever, recent sick contacts. In the ED, vitals: temp 373, HR 97, RR 23 satting 91% on 3L, BP 142/69. Troponin 0.055, Pro-BNP 39386. Chest x-ray reads bibasilar pneumonia. EKG with chronic LBBB. Patient subsequently started on ceftriaxone, azithromycin and heparin gtt cardiac protocol. Hospital Course Patient is an 80-year-old female with a history of congestive heart failure, hypertension, dyslipidemia, paroxysmal atrial fibrillation, and chronic kidney disease, admitted for dyspnea and chest pain; found to have bilateral S. pneumoniae pneumonia and elevated troponin indicative of NSTEMI. 1. Acute Kidney Injury on Chronic kidney disease, present on admission, ongoing - Kidney injury possibly secondary to acute interstitial nephritis and retention with hypertensive heart disease and hypertensive nephrosclerosis - Cr 2.61 today. Creatinine was 1.84 on admission - Serum protein electrophoresis, urine free eosinophils pending - Decrease Labetalol to 200 mg twice a day. Continue Spironolactone 25 mg once a day - Per Dr. Thakkar, patient can be discharged with close follow up as an outpatient 2. Chronic systolic and diastolic heart failure, acute, present on admission, presumed stable -- Pro-BNP 52736. Repeat pro-BNP 07/24/16: 43630, 02970 -ECHO done on 07/22/16: Compared to previous study left ventricular function has significantly decreased. EF 20-35%, moderate to severe global hypokinesis worse in the septum and apex. Moderate mitral and tricupsid regurgitation, mild aortic stenosis and regurgitation. - Lasix 20 mg IV qd 3. Hypertension with Hypertensive heart disease, chronic, present no admission - s/p left renal artery stent 2008 with moderately atrophic left kidney: BP mildly elevated - Patient will benefit from aggressive BP control with the goal of <120/80 - Continue hydralazine 100mg tid - Continue Imdur 120mg daily - Continue amlodipine 5mg daily - Continue furosemide 20mg IV daily 4. Paroxysmal Atrial Fibrillation, chronic, present on admission. Presumed stable - In sinus rhythm today - Labetalol 200 mg PO bid - Mg 1.5, replenished with MgCL 64 mg PO x 1 and MgSO4 2 gm IV x 1 - Monitor labs 5. Acute coronary syndrome, present on admission. Resolved - Likely NSTEMI - Patient with LBBB and 1st degree AV block - Risk factors for ACS includes: CAD, dyslipidemia, hypertension, family history - Aspirin and Clopidogrel - Stress test showed a completed anterior infarct. Per Dr. Krishnamurthy, the risk of cardiac catheterization is prohibitive. Dr. Jain, pt's case sealer agrees 6. Bibasilar pneumonia, acute, present on admission. Resolved. - Chest x-ray reads bibasilar pneumonia - Positive for Strep pneumo urine AG - Negative respiratory viral PCR - Patient completely asymptomatic - Antibiotics stopped azithromycin, ceftriaxone - Procalcitonin 0.52 7. Acute transaminitis, present on admission. Resolved - Possibly secondary to hepatic congestion secondary to #3, statin toxicity, cholecystitis - US abdomen done 07/22/16: Cholelithiasis. No ultrasound findings to suggest acute cholecystitis. - Pravastatin 40 mg qd - Acute hepatitis panel: negative - AST and ALT almost back to within range. Continue to follow with daily CMP 8. Dyslipidemia, chronic, present on admission - Continue home atorvastatin 40 mg 9. Generalized aches and malaise, not present on admission. Resolved - Likely secondary to decreased activity and bedrest - Encourage ambulation/ up with meals - Negative for flu type A and B Dispo: HOME tomorrow Exam Vital Signs (Last) Date Time Temp Pulse Resp B/P Pulse Ox O2 Delivery O2 Flow Rate FiO2 07/31/16 09:46 66 07/31/16 08:50 36.8 20 128/68 95 Room Air 07/26/16 05:08 2.00 Exam General: No acute distress, well-developed, appropriately interactive HEENT: Normocephalic, atraumatic. Pupils equal, round, and reactive to light. Neck: Supple. No jugular venous distension. Cardiovascular: Regular rate and rhythm Pulmonary: CTAB, Normal respiratory effort Abdomen: Bowel tones present. Soft, nontender, nondistended. Extremities: Dorsalis pedis pulses equal bilaterally. No clubbing, cyanosis, edema Skin: Normal temperature, turgor, and texture Neurological: Cranial nerves grossly intact Psychiatric: Normal mood and affect. Alert and oriented to person, place, and time. Test 07/21/16 18:56 07/21/16 22:54 07/22/16 20:34 07/24/16 05:40 Hold Brown Top Tube Received (Received) Urine Color Yellow (YELLOW) Urine Appearance Hazy (CLEAR,HAZY) Urine pH 7.0 (5.0-8.0) Urine Specific [place] 1.020 (1.003-1.035) Urine Protein >300mg/dL (NEG,TRACE) Urine Glucose (UA) Negativemg/dL (NEGATIVE) Urine Ketones Negativemg/dL (NEGATIVE) Urine Occult Blood Small (NEGATIVE) Urine Nitrite Negative (NEGATIVE) Urine Bilirubin Negative (NEGATIVE) Urine Urobilinogen Normalmg/dL (NORMAL) Urine Leukocyte Esterase Small (NEGATIVE) Urine RBC 3-10/hpf (0-2) Urine WBC 11-50/hpf (0-5) Urine Epithelial Cells Moderate/hpf (NONE-MOD) Urine Crystals None seen (NONE SEEN) Urine Bacteria None/hpf (NONE-FEW) Urine Hyaline Casts None/lpf (NONE) Urine Granular Casts None seen (NONE SEEN) Urine Waxy Casts None seen (NONE SEEN) Urine Red Blood Cell Casts None seen (NONE SEEN) Urine White Blood Cell Casts None seen (NONE SEEN) Urine Mucus None seen (None Seen) Urine Trichomonas None seen (NONE SEEN) Urine Yeast None (NONE SEEN) Urine Culture Reflexed Indicated Urine Legionella pneumophilia Ag Negative (Negative) Hepatitis A IgM Antibody Negative (Negative) Hepatitis B Surface Antigen Negative (Negative) Hepatitis B Core IgM Antibody Negative (Negative) Hepatitis C Antibody <0.1s/co ratio (0.0-0.9) Hepatitis C Comment Comment (.) Ferritin 282ng/mL (13-150) Test 07/24/16 15:30 07/26/16 03:07 07/28/16 05:05 07/28/16 15:55 Pro-B-Type Natriuretic Peptide 62919au/mL (0-738) Phosphorus Level 3.8mg/dL (2.5-4.9) Procalcitonin 0.52ng/mL (See Comment) Activated Partial Thromboplast Time 72.8sec (22.8-33.0) Troponin T 0.218ug/L (0.0-0.011) Uric Acid 7.5mg/dL (2.6-7.2) Iron Level 105ug/dL (35-150) Total Iron Binding Capacity 221ug/dL (250-450) Percent Iron Saturation 48%sat (15-50) Unsaturated Iron Binding 115.8ug/dL Complement C3 137mg/dL (82-167) Complement C4 28mg/dL (14-44) Test 07/29/16 08:25 07/31/16 06:41 White Blood Count 4.3th/mm3 (3.8-10.1) Red Blood Count 2.92mil/mm3 (3.90-5.20) Hemoglobin 9.1g/dL (12.0-15.6) Hematocrit 28.2% (35.0-46.0) Mean Corpuscular Volume 96.6fL (81-100) Mean Corpuscular Hemoglobin 31.2pg (27.0-35.0) Mean Corpuscular Hemoglobin Concent 32.3% (32.0-37.0) Red Cell Distribution Width 14.6% (12.3-15.4) Platelet Count 186bil/L (150-400) Neutrophils (%) (Auto) 49.0% (40-74) Lymphocytes (%) (Auto) 34.7% (14-46) Monocytes (%) (Auto) 9.1% (4-12) Eosinophils (%) (Auto) 6.0% (0-5) Basophils (%) (Auto) 0.7% (0-3) Sodium Level 141mEq/L (134-144) Potassium Level 4.8mEq/L (3.5-5.2) Chloride Level 109mEq/L (97-108) Carbon Dioxide Level 18mmol/L (18-29) Blood Urea Nitrogen 28mg/dL (8-27) Creatinine 2.44mg/dL (0.57-1.00) Estimat Glomerular Filtration Rate 27mL/min (>59) Glucose Level 101mg/dL (60-99) Calcium Level 9.2mg/dL (8.5-10.1) Magnesium Level 2.2mg/dL (1.6-2.6) Total Bilirubin 0.3mg/dL (0.0-1.2) Aspartate Amino Transf (AST/SGOT) 20U/L (0-50) Alanine Aminotransferase (ALT/SGPT) 20U/L (0-32) Alkaline Phosphatase 116U/L (25-165) Total Protein 5.9g/dL (6.4-8.4) Albumin 3.1g/dL (3.4-5.0) Microbiology Results Microbiology MONSTER STREP PNEUMONIAE AG URINE Final 07/22/16-830 STREP PNEUMO AG POSITIVE Tests performed directly on clinical specimens are intended for screening purposes only and should augment, not replace, culture procedures Please Note: Streptococcus pneumoniae vaccine may cause false positive results in urine in the 48 hours following injection. Hence, it is recommended that the Alere Strep pneumoniae Antigen testing not be performed within five days of receiving the S. pneumoniae vaccine Discharge Medications Discharge Medications Amlodipine (Amlodipine) 10 Mg Tablet 10 MG PO BID (Reported) Aspirin Chew (Aspirin Chew) 81 Mg Chew 81 MG PO HS (Reported) Atorvastatin (Lipitor) 80 Mg Tablet 80 MG PO HS (Reported) Cholecalciferol (Vitamin D3) (Vitamin D3) 1,000 Unit Tab.chew 1,000 UNIT PO HS ( Reported) Cranberry Conc/C/Bacill Coag (Cranberry Tablet) 1 Each Tablet 1 EACH PO BID ( Reported) Ferrous Sulfate (Ferrous Sulfate) 324 Mg Tablet.dr 324 MG PO TID (Reported) Furosemide (Furosemide) 40 Mg Tablet 40 MG PO QAM (Reported) Hydralazine (Hydralazine) 100 Mg Tablet 100 MG PO TID Prescribed by: BEATA CROSS DO Isosorbide MN ER (Isosorbide MN ER) 60 Mg Tab.er.24h 60 MG PO QAM (Reported) Labetalol (Labetalol) 200 Mg Tablet 200 MG PO BID Prescribed by: BEATA CROSS DO Magnesium Oxide (Magnesium) 500 Mg Capsule 500 MG PO BID (Reported) Multivits-Min/Iron/FA/Lutein (Centrum Silver Women Tablet) 8 Mg Iron-400 Mcg- 300 Mcg Tablet 1 EACH PO QAM (Reported) Potassium Chloride (Potassium Chloride) 10 Meq Tab.er.prt 10 MEQ PO QAM ( Reported) TAKE WITH FOOD Ranitidine (Ranitidine) 150 Mg Capsule 150 MG PO HS (Reported) Spironolactone (Spironolactone) 25 Mg Tablet 25 MG PO DAILY Prescribed by: BEATA CROSS DO As needed Nitroglycerin SL (Nitrostat) 0.4 Mg Tab.subl 0.4 MG SL Q5MIN PRN PRN For Chest Pain Prescribed by: SOHA BLANTON MD Additional med instructions Continue hydralazine 100mg three times a day Continue Imdur 60mg twice a day Continue amlodipine 5mg twice a day Continue furosemide 20mg daily Continue labetalol 200mg twice a day Continue spironolactone 25 mg daily Continue aspirin 81 mg daily Continue clopidogrel 75 mg daily Continue all your other home medications. Followup Plan Follow-up plan Please schedule an appointment and follow up with your thermal engineer next week. Discharge Diet: Heart Healthy Discharge Activity: Limited until seen by PCP Follow-up Provider: Ghulam Mukherjee MD Follow-up with PCP in: 2 weeks Provider: Vipin Jain MD Follow-up in: 1 week Time spent 35 minutes Attending Statement The patient was seen and examined together with Dr. Cross on 07/31/2016 and I agree with the history, exam and plan as outlined in the note above. BEATA CROSS DO Jul 31, 2016 15:51 Mark Ocampo MD Aug 01, 2016 11:21
== END 2016-07-31 12:07 | disposition home or self-care (01) | DRG 280 ==
LOC: SED 18:19 → OSC 19:57 → MPC 07-22 00:03 → MOC 07-28 18:08
PROVIDERS: ADMIT Specialist; ATTEND Specialist
DX: I21.4 Non-ST elevation (NSTEMI) myocardial infarction (principal); I50.43 Acute on chronic combined systolic (congestive) and diastolic (congestive) heart failure; J13 Pneumonia due to Streptococcus pneumoniae; I13.0 Hypertensive heart and chronic kidney disease with heart failure and stage 1 through stage 4 chronic kidney disease, or unspecified chronic kidney disease; N18.4 Chronic kidney disease, stage 4 (severe); N17.9 Acute kidney failure, unspecified; N10 Acute pyelonephritis; R07.9 Chest pain, unspecified; E78.5 Hyperlipidemia, unspecified; I48.0 Paroxysmal atrial fibrillation; Z79.82 Long term (current) use of aspirin; N26.1 Atrophy of kidney (terminal); D63.1 Anemia in chronic kidney disease

== ENCOUNTER 2016-08-17 10:50 | Inpatient (IN) | payer MEDICARE, OTHER ==
[2016-08-17] VITALS (19 sets, daily range): BP systolic 125–157; BP diastolic 40–67; PULSE 14–58; RESP 10–18; O2SAT 91–99
[~2016-08-17] VITALS: Ht 152.4 cm; Wt 53.0 kg
[~2016-08-17 10:50] MED LIST changes: -CARV12.52 PO; +FERR324T2 PO; -HYDR-3939 PO; +HYDR100T27 PO; -ISOS20TA4 PO; +ISOS60TA2 PO; +LABE200T PO; +SPIR25TA3 PO
--- NOTE | 2016-08-17 11:06 | ED.REPORT ---
HPI-General Illness Date of Service Aug 17, 2016 ED Provider: Meir Miguel Patient is an 80 year old female who presents to the ED after being referred by her PCP for bradycardia. She refused EMS transport and was brought to the ED via private vehicle. She reports malaise, nausea, and SOB. She denies lightheadedness, chest pain, or change in LOC. Patient reports that she has had recurrent chest pain but has not been symptomatic in the past few days. Nursing Notes Stated Complaint: HEART FAILURE Chief Complaint: Dysrhythmia/Cardiac Nursing Notes Reviewed: Yes Allergies: Coded Allergies: Sulfa (Sulfonamide Antibiotics) (Verified Allergy, Unknown, KIDNEY PROBLEMS, 08/17/16) Scheduled Amlodipine (Amlodipine) 10 Mg Tablet 10 MG PO BID Aspirin Chew (Aspirin Chew) 81 Mg Chew 81 MG PO HS Atorvastatin (Lipitor) 80 Mg Tablet 80 MG PO HS Cholecalciferol (Vitamin D3) (Vitamin D3) 1,000 Unit Tab.chew 1,000 UNIT PO HS Cranberry Conc/C/Bacill Coag (Cranberry Tablet) 1 Each Tablet 1 EACH PO BID Furosemide (Furosemide) 40 Mg Tablet 40 MG PO QAM Hydralazine (Hydralazine) 100 Mg Tablet 100 MG PO TID Isosorbide MN ER (Isosorbide MN ER) 60 Mg Tab.er.24h 60 MG PO QAM Labetalol (Labetalol) 200 Mg Tablet 200 MG PO BID Magnesium Oxide (Magnesium) 500 Mg Capsule 500 MG PO BID Multivits-Min/Iron/FA/Lutein (Centrum Silver Women Tablet) 8 Mg Iron-400 Mcg- 300 Mcg Tablet 1 EACH PO QAM Potassium Chloride (Potassium Chloride) 10 Meq Tab.er.prt 10 MEQ PO QAM TAKE WITH FOOD Ranitidine (Ranitidine) 150 Mg Capsule 150 MG PO HS Spironolactone (Spironolactone) 25 Mg Tablet 12.5 MG PO DAILY Scheduled PRN Epinephrine (Epipen 2-David) 0.3 Mg/0.3 Ml Auto.injct 1 DOSE INJ prn PRN PRN For Anaphyllaxis Nitroglycerin SL (Nitrostat) 0.4 Mg Tab.subl 0.4 MG SL Q5MIN PRN PRN For Chest Pain General Time Seen by MD: 11:05 Chief Complaint Other (Bradycardia) Hx Obtained From: Patient, Primary care provider Arrived By: Walk-in Recent Healthcare: Recent doctor visit Past Medical History Past Medical History Notes: FULL CODE Hand Buffer: Dr. Jain Director Fundraising: Dr. Key PCP: Dr. Mukherjee Cardiac cath January 2007 no signficant coronary disease normal LV function increased LVEDP consistent with diastolic dysfunction Past Medical History known LBBB and AV block Previous NC Reports: Congestive heart failure, Hyperlipidemia, Hypertension Reports: Atrial fibrillation, Renal insufficiency Past Surgical History cardiac catheterization Left hip replacement Family History Reports: Coronary artery disease, Stroke Smoking History Former Smoker Social History Other Social History: Good social support, , Local resident Ambulatory Status Independent Review of Systems +bradycardia Full Review of Systems Constitutional: Reports: Malaise Respiratory: Reports: Shortness of breath Cardiovascular: Denies: Chest pain GI: Reports: Nausea Neurologic: Denies: Change LOC, Lightheaded Complete sys rev & neg: except as marked. Physical Exam Vital Signs Vital Signs Date Time Temp Pulse Resp B/P Pulse Ox O2 Delivery O2 Flow Rate FiO2 08/17/16 14:00 51 12 138/40 99 Nasal Cannula 2 08/17/16 13:45 46 17 134/42 99 Nasal Cannula 2 08/17/16 13:15 43 16 139/43 98 Nasal Cannula 2 08/17/16 13:00 40 10 131/41 98 Nasal Cannula 2 08/17/16 12:57 40 14 96 Nasal Cannula 2 08/17/16 12:45 39 12 146/43 97 Nasal Cannula 2 08/17/16 12:30 14 12 139/48 98 Nasal Cannula 2 08/17/16 12:15 49 12 145/54 98 Nasal Cannula 2 08/17/16 12:00 40 14 130/43 98 Nasal Cannula 2 08/17/16 12:00 40 14 130/43 98 Nasal Cannula 2 08/17/16 11:45 46 14 130/67 98 Nasal Cannula 2 08/17/16 11:30 49 16 144/54 95 Nasal Cannula 2 08/17/16 11:15 44 16 135/61 98 Nasal Cannula 2 08/17/16 11:01 36.7 42 15 135/50 96 Room Air Initial VS: Reviewed General/Constitutional: Well-developed, Well-nourished Head / Eyes: Atraumatic, Normocephalic Extremities: No swelling Skin: Warm, Dry Neurologic: Alert, Oriented, Nonfocal Psychiatric: Mood/affect normal, Behavior normal, Normal thought content ENT: Mucous membranes moist Respiratory / Chest: Breath sounds NL, Breath sounds = bilat, No respiratory distress Cardiovascular: Heart sounds NL, Peripheral circulation NL Heart Rate / Rhythm: Positive: Bradycardia, Irreg irregular rhythm Abdomen: Atraumatic, Soft, Non-tender, BS normoactive Interpretation & Diagnostics Lab Results Interpretation Result Diagram: 08/17/16 1110 08/17/16 1715 Test 08/17/16 11:10 White Blood Count 5.5th/mm3 (3.8-10.1) Red Blood Count 3.60mil/mm3 (3.90-5.20) Hemoglobin 11.3g/dL (12.0-15.6) Hematocrit 34.8% (35.0-46.0) Mean Corpuscular Volume 96.7fL (81-100) Mean Corpuscular Hemoglobin 31.4pg (27.0-35.0) Mean Corpuscular Hemoglobin Concent 32.5% (32.0-37.0) Red Cell Distribution Width 13.9% (12.3-15.4) Platelet Count 146bil/L (150-400) Neutrophils (%) (Auto) 62.5% (40-74) Lymphocytes (%) (Auto) 20.4% (14-46) Monocytes (%) (Auto) 10.2% (4-12) Eosinophils (%) (Auto) 6.4% (0-5) Basophils (%) (Auto) 0.5% (0-3) Prothrombin Time 9.9sec (8.1-12.5) Prothromb Time International Ratio 0.93ratio Magnesium Level 3.5mg/dL (1.6-2.6) Troponin T 0.021ug/L (0.0-0.011) Hold Brown Top Tube Received (Received) ECG Interpretation ECG Interpretation: Afib with ventricular response of 41. LBBB Compared to 07/30/16 rate has slowed markedly Time: 11:15 Interpreted by: ED physician X-Ray Chest Interpretation Chest Xray Interpretation: IMPRESSION: No acute cardiopulmonary disease process. Dictated by: Radha Kelly MD, PhD on 08/17/2016 at 11:43 Approved by: Radha Kelly MD, PhD on 08/17/2016 at 11:44 View: Portable, 1 view Interpretation / Wet Read by: Interpret - Radiologist Re-Eval/Medical Decision Med Decision/Clinical Course 80-year-old female with some underlying renal failure presents with symptomatic bradycardia. Found to be hyperkalemic with worsening renal failure. Emergency Department treated with insulin and glucose calcium gluconate and albuterol. Nephrology has been consulted. We admitted to the medicine service. Normotensive throughout her emergency department stay. Time of Eval: 12:17 Re-Evaluation/Progress Note: Rechecked patient. Discussed lab results and plan for admission. Patient understands and agrees with plan. All questions addressed at this time. Consultation #1: Referral / Consult Name: Jamal Turner MD Consulted With: Nephrology Call Returned at: 12:23 Television Antenna Installer: Agrees with eval, Agrees with plan Note: Discussed patient's case. Agrees to consult. Consultation #2: Referral / Consult Name: Mikie Caro MD Consulted With: Hospitalist Call Returned at: 13:28 Television Antenna Installer: Will see patient, Agrees with eval, Agrees with plan, Accepts admit Note: Discussed patient's case. Accepts admit. Counseled Regarding: Diagnosis, Lab results, Need for admission Discharge & Departure Primary Impression: Renal failure Additional Impressions: Hyperkalemia Symptomatic bradycardia Disposition: ADMITTED TO HOSPITAL Referrals: Ghulam Mukherjee MD (PCP) Crit Care Except Billable Proc Time Spent: 30-74 minutes Services Performed: Patient management by me, Time spent at bedside, Reviewing test results, Reviewing imaging, Discussing patient care, Documentation in record, Time with fam/surrogate Scribe Attestation Portions of this note were transcribed by René Mallory. I, Dr. Miguel personally performed the history, physical exam and medical decision-making; I reviewed and confirmed the accuracy of the information in the transcribed note. Signed by: René Mallory 08/17/16, 1203 copies to: Ghulam Mukherjee MD, Donald L MD Aug 17, 2016 11:06 RENÉ MALLORY Aug 17, 2016 11:19 Consultation #1: Referral / Consult Name: Jamal Turner MD Consulted With: Nephrology Call Returned at: 12:23 Television Antenna Installer: Agrees with eval, Agrees with plan Note: Discussed patient's case. Agrees to consult. Consultation #2: Referral / Consult Name: Mikie Caro MD Consulted With: Hospitalist Call Returned at: 13:28 Television Antenna Installer: Will see patient, Agrees with eval, Agrees with plan, Accepts admit Note: Discussed patient's case. Accepts admit. Counseled Regarding: Diagnosis, Lab results, Need for admission Discharge & Departure Primary Impression: Renal failure Additional Impressions: Hyperkalemia Symptomatic bradycardia Disposition: ADMITTED TO HOSPITAL Referrals: Ghulam Mukherjee MD (PCP) Scribe Attestation Portions of this note were transcribed by René Mallory. I, Dr. Miguel personally performed the history, physical exam and medical decision-making; I reviewed and confirmed the accuracy of the information in the transcribed note. Signed by: René Mallory 08/17/16, [id number] copies to: Ghulam Mukherjee MD, Donald L MD Aug 17, 2016 11:06 RENÉ MALLORY Aug 17, 2016 11:19
[2016-08-17 11:17] LABS: BASOPHILS % (AUTO) 0.5 % (0-3); EOSINOPHILS % (AUTO) 6.4 % (0-5); MONOCYTES % (AUTO) 10.2 % (4-12); Mean Corpuscular Hemoglobin 31.4 pg (27.0-35.0); Mean Corpuscular Volume 96.7 fL (81-100); NEUTROPHILS % (AUTO) 62.5 % (40-74); Platelet Count 146 bil/L (150-400)
[2016-08-17 11:34] LABS: INR 0.93 ratio
[2016-08-17 11:40] LABS: TROPONIN T 0.021 ug/L (0.0-0.011)
--- NOTE | 2016-08-17 11:45 | DRSVH ---
PROCEDURE: X-RAY CHEST ONE VIEW, PORTABLE ([id number]) INDICATIONS: bradycardia TECHNIQUE: One view of the chest was acquired. COMPARISON: [facility], CR, XR CHEST 1VW (PORTABLE), 07/21/2016, 18:33. FINDINGS: Surgical changes and devices: Transcutaneous pacer noted. Lungs and pleura: No pleural effusions or pneumothorax. Lungs are clear. Calcified granuloma in the right lung is stable compared to prior examination. Mediastinum: Mediastinal contours appear normal. Heart size is normal. Bones and chest wall: No suspicious bony lesions. Overlying soft tissues appear unremarkable. IMPRESSION: No acute cardiopulmonary disease process. Dictated by: Radha Kelly MD, PhD on 08/17/2016 at 11:43 Approved by: Radha Kelly MD, PhD on 08/17/2016 at 11:44
[2016-08-17 11:51] LABS: Magnesium 3.5 mg/dL (1.6-2.6)
[2016-08-17] MEDS ORDERED: Calcium GLUCOnate 10% (Gm) 1 Gm/10 mL Inj IVPUSH PRN (12:25)
[2016-08-17] MEDS ORDERED: Albuterol 0.5% (5mg/mL) 20 mL Inhalation Solution NEB ONE (12:25)
[2016-08-17] MEDS ORDERED: Insulin Human REGular-Omnicell 100 Unit/mL IV ONE (12:25)
[2016-08-17] MEDS ORDERED: Albuterol 2.5 mg/3 mL Inhalation Solution NEB ONE (12:49)
[2016-08-17] MEDS ORDERED: Ondansetron 2 mg/mL 2 mL Inj IVPUSH PRN ×2 (14:35→17:05)
[2016-08-17] MEDS ORDERED: Alum-Mag Hydrox-Simeth 30 mL Suspension PO PRN (14:35)
--- NOTE | 2016-08-17 15:20 | NUR ---
admit patient arrived on unit from ER on stretcher with shock pads on d/t high potassium levels of 6.7. pt is alert to self and place but forgetful and her stated that her dementia is worsening. pt is SB 40s and stated that she gets dizzy with ambulation and wall walks at home. Fall precautions posted and bed alarm on. Med rec completed by Marta Elder. other vs wnl. UA sent to lab.
[2016-08-17] MEDS ORDERED: SPIR25TA3 PO (15:36)
[2016-08-17] MEDS ORDERED: EPIN0.3P2 INJ (15:36)
--- NOTE | 2016-08-17 16:15 | PCM.CHPMED ---
Subjective Date of Service: Aug 17, 2016 Primary Physician: Admitting Physician: Primary Care Physician: Ghulam Mukherjee MD Attending Physician: Chief Complaint: Chief Complaint: TANIA and hyperkalemia. . History of Present Illness: Nephrology Consultation Note: Attending Dr. Dave Alvarez Mary Carmenlito is an 80-year-old female with a past medical history significant who presented to [facility] Emergency Department at the direction of her PCP Dr. Mukherjee for bradycardia. She refused EMS transport and was brought to the ED via private vehicle. She reports generalized weakness , subjective fever, nausea, vomiting x 1 episode and shortness of breath 3 days. She denies headache, dizziness or lightheadedness, chest pain, dysuria, diarrhea or constipation. The patient reports that she had previously been on hydralazine in the past and had very similar generalized weakness and nausea with vomiting which resolved when this medication was stopped. She is unsure if this episode is related to hydralazine usage. She has had normal appetite and fluid intake. She denies decreased urine output. She has had no skin rashes. Vital signs in the ER: Temperature 36.7. Pulse 42. Respiratory rate 15. Blood pressure 135/50. Pulse ox 96% on room air. She was given 1 amp of calcium gluconate, albuterol nebulizer 10 mg 2, regular insulin 10 units, and an amp of D50. . Review of Systems: A comprehensive review of systems was conducted with the patient and found to be negative except as above in the History of Present Illness. . PMH Past Medical History 1. Known LBBB and AV block. 2. Previous SC. 3. Congestive heart failure systolic and diastolic. 4. Hyperlipidemia. 5. Hypertension. 6. Paroxysmal atrial fibrillation. 7. 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 8. Bladder prolapse. Drying Machine Tender: Dr. Jain Plastic Boat Patcher: Dr. Key PCP: Dr. Mukherjee . Bedside Blood Glucose: 110 Surgical History 1. Left hip replacement. 2. Cardiac cath January 2007- No significant coronary disease normal LV function and increased LVEDP consistent with diastolic dysfunction. 3. Left renal stent. 4. Total hysterectomy with bilateral salpingoophrectomy. 5. Bladder prolapse status post bladder sling x 2. . Home Medications Amlodipine 10 mg twice a day. Aspirin 81 mg daily. Atorvastatin 80 mg daily at bedtime. Cholecalciferol 1000 unit tab daily. Cranberry tablet 1 tablet twice a day. Ferrous sulfate 324 mg 3 times a day. Furosemide 40 mg daily. Hydralazine 100 mg 3 times a day. Isosorbide mononitrate ER 60 mg daily. Labetalol 200 mg twice a day. Magnesium oxide 500 mg twice daily. Multivitamin daily. Nitroglycerin SL 0.4 mg SL every 5 minutes as needed for chest pain. Potassium chloride 10 mEq daily. Ranitidine 150 mg daily at bedtime. Spironolactone 25 mg daily. . Allergies: Coded Allergies: Sulfa (Sulfonamide Antibiotics) (Verified Allergy, Unknown, KIDNEY PROBLEMS, 08/17/16) Family History Family History Mother who had CKD and at the age of 84. Father who had CAD and CVA. A brother who of CKD in his 70's. A sister who of an SC at the age of 55. Social History Hx Alcohol Use: NoHx Substance Use: Yes (very rarely, glass of wine twice a year)Hx Tobacco Use: Yes Smoking Status: Former Smoker (07/28 ppd x 10 years) Exam Vital Signs Vital Sign - Last Date Time Temp Pulse Resp B/P Pulse Ox O2 Delivery O2 Flow Rate FiO2 08/17/16 13:00 40 10 131/41 98 Nasal Cannula 2 08/17/16 11:01 36.7 General: Alert, Oriented X3, Cooperative, No Acute Distress Head: Normal Eyes: PERRLA, EOMI, Scleral Anicteric Nose: Dry membranes Mouth: Mouth Normal Neck: Supple, No Thyromegaly Chest & Lungs: Clear to auscultation & percussion, No adventitious breath sounds Cardiovascular: Regular Rate/Rhythm, Normal S1, Normal S2, No Murmurs/Rubs/ Gallops, Other (bradycardic) Pulses: NL carotid, radial, femoral, DP, PT Abdomen: Non-tender, Non-distended, No masses, No hepatosplenomegaly, Normoactive bowel tones, Soft Genitourinary: Myrick Absent Musculoskeletal: Normal Range of Motion Extremities: No cyanosis/clubbing/edma bilat, Normal bilaterally Neurological: Cranial Nerves 2-12 Intact, Strength Normal 4/4 ext, Cerebellar Function nl Finger-Nose, Cerebellar Function nl Heel-Garcias, Babinski Reflex Normal Lab and Diagnostics Labs Item Value Date Time Prothrombin Time 9.9 sec 08/17/16 1110 Prothromb Time International Ratio 0.93 ratio 08/17/16 1110 Item Value Date Time Calcium Level 9.9 mg/dL 08/17/16 1110 Magnesium Level 3.5 mg/dL H 08/17/16 1110 Total Bilirubin 0.6 mg/dL 08/17/16 1110 Aspartate Amino Transf (AST/SGOT) 24 U/L 08/17/16 1110 Alanine Aminotransferase (ALT/SGPT) 18 U/L 08/17/16 1110 Alkaline Phosphatase 101 U/L 08/17/16 1110 Troponin T 0.021 ug/L H 08/17/16 1110 Total Protein 8.0 g/dL 08/17/16 1110 Albumin 4.7 g/dL 08/17/16 1110 Result Diagram: 08/17/16 1110 08/17/16 1110 X-Rays, CTs and MRIs X-RAY CHEST ONE VIEW, PORTABLE IMPRESSION: No acute cardiopulmonary disease process. Dictated by: Radha Kelly MD, PhD on 08/17/2016 at 11:43 Approved by: Radha Kelly MD, PhD on 08/17/2016 at 11:44 US ABDOMEN IMPRESSION: 1. Cholelithiasis. No ultrasound findings to suggest acute cholecystitis. 2. 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 3. Moderate left renal atrophy and a 1.4 cm cyst in the superior pole.. 4. Fusiform ectasia of distal abdominal aorta. There is aortic atherosclerosis. Dictated by: Sue Staples M.D. on 07/22/2016 at 18:58 Approved by: Sue Staples M.D. on 07/22/2016 at 18:58 . 12-lead ECG EKG: Sinus bradycardia, heart rate 41,LBBB. . Assessment & Plan Assessment Kim Goldberg is an 80-year-old female with a past medical history significant who presented to [facility] Emergency Department at the direction of her PCP Dr. Mukherjee for bradycardia. Impression: 1. Symptomatic bradycardia likely secondary to hyperkalemia and underlying heart disease. 2. Acute kidney injury on chronic kidney disease stage III/IV. - Etiology likely secondary to prerenal azotemia (significant hypovolemia from over diuresis). Rule out AIN. 3. Anion gap metabolic acidosis secondary to TANIA. 4. Hyperkalemia. - Etiology likely secondary to TANIA and current medications including Spironolactone, labetalol, and potassium chloride supplementation. 5. Hypermagnesemia. 6. Atrophic left kidney. 7. Hypertension with hypertensive heart disease and hypertensive nephrosclerosis. 8. Normocytic normochromic anemia secondary to chronic kidney disease. Plan: - Ordered Kayexalate 30 g 1. Repeat BMP now and tonight at 2200. If continues to be persistently hyperkalemic we will repeat 1 amp calcium gluconate , albuterol neb, 10 units regular insulin and 1 amp of D50. - Ordered hemoglobin A1c, urine electrolytes and eosinophils, and urinalysis with culture if indicated, pending. - Ordered lactic acid, pending. - Ordered a post void residual. - Baseline creatinine ~ 2.0-2.4 on 08/10. Recent abdominal ultrasound showed no evidence of nephrolithiasis or hydronephrosis but evidence of atrophic left kidney, as above. - Discontinued blood pressure medications including spironolactone and labetalol. Decreased amlodipine to 5 mg daily for now. Will tentatively keep Imdur scheduled for tomorrow morning. - Held furosemide and potassium chloride supplementation for now. - Held magnesium oxide 500 twice daily. - Started gentle hydration with IV fluids NS at 80 mL/hr as patient has a history of systolic and diastolic CHF. - Recommend cardiology consult. Patient was seen and examined. The case was discussed with Dr. Raymundo. I have reviewed and agreed with her assessment and plan Dr. Acosta. Problems: Resuscitation Status: CPR: Attempt Resuscitation Lesly Raymundo DO Aug 17, 2016 13:48 Jamal Turner MD Aug 17, 2016 21:24
--- NOTE | 2016-08-17 17:03 | PCM.HPMED ---
Subjective Date of Service Aug 17, 2016 Primary Provider: Admitting Physician: Mikie Caro MD Primary Care Physician: Ghulam Mukherjee MD Attending Physician: Mikie Caro MD Chief Complaint: Sent from primary care clinic for nausea History of Present Illness: 80-year-old female with a history of congestive heart failure, hypertension, dyslipidemia, paroxysmal atrial fibrillation, and chronic kidney disease, recent [id number] for streptococcal pneumonia, TANIA, NSTEMI, transaminitis, CHF presented to day to primary care office for regular d/c follow up, noted bradycardia 30s with idioventricular rhythms with old LBBB, sent to ED for further evaluation. Patient stated that since she was discharged, she has been doing okay, good appetite with normal eating, regular bowel movement, denied weight gain/ increase abdominal girdle/PND/orthopnea. Patient followed 's recommendation , compliant to all her new regimen from her discharge including hydralazine, labetalol, aldactone. Today morning before she went to PCP office, pt finished breakfast and had nausea, vomiting 3 times with light brown liquid vomitus, up to only half cups, and felt very weak, however, patient was able to eat half of toast, kept in down well, was able to go to PCPs office. As per , he has some cold-like symptoms recently, patient also felt little bit of nasal congestion but denied any fever or chills or cough or phlegm, runny nose or sore throat. Of note patient finished antibiotics prior to discharge for pneumonia. As per discussion of PCP , , per EMR today, given this chronic LBBB, progressive severe systolic dysfunction, plan is to get pacemaker insertion for biventricular pacing on this admission, which was originally scheduled for later. In ED, VSS BP 130s, lexa to 40s, RR15, afebrile, 96% on RA, labs showed TANIA on CKD, hyperkalemia6.7, chronic troponemia, received odin gluconate, albuterol/ insulin/d50. [place] [facility] [place] looked very comfortable, alert and oriented, denied any chest pain or discomfort or breathing. ROS: No fever, chills, dysuria, diarrhea, constipation, Review of Systems: Pertinent positives as noted in history of present illness. All other systems were reviewed and are negative Allergies Coded Allergies: Sulfa (Sulfonamide Antibiotics) (Verified Allergy, Unknown, KIDNEY PROBLEMS, 08/17/16) Home Medications Discharge Medications Amlodipine (Amlodipine) 10 Mg Tablet 10 MG PO BID (Reported) Aspirin Chew (Aspirin Chew) 81 Mg Chew 81 MG PO HS (Reported) Atorvastatin (Lipitor) 80 Mg Tablet 80 MG PO HS (Reported) Cholecalciferol (Vitamin D3) (Vitamin D3) 1,000 Unit Tab.chew 1,000 UNIT PO HS ( Reported) Cranberry Conc/C/Bacill Coag (Cranberry Tablet) 1 Each Tablet 1 EACH PO BID ( Reported) Ferrous Sulfate (Ferrous Sulfate) 324 Mg Tablet.dr 324 MG PO TID (Reported) Furosemide (Furosemide) 40 Mg Tablet 40 MG PO QAM (Reported) Hydralazine (Hydralazine) 100 Mg Tablet 100 MG PO TID Prescribed by: BEATA CROSS DO Isosorbide MN ER (Isosorbide MN ER) 60 Mg Tab.er.24h 60 MG PO QAM (Reported) Labetalol (Labetalol) 200 Mg Tablet 200 MG PO BID Prescribed by: BEATA CROSS DO Magnesium Oxide (Magnesium) 500 Mg Capsule 500 MG PO BID (Reported) Multivits-Min/Iron/FA/Lutein (Centrum Silver Women Tablet) 8 Mg Iron-400 Mcg- 300 Mcg Tablet 1 EACH PO QAM (Reported) Potassium Chloride (Potassium Chloride) 10 Meq Tab.er.prt 10 MEQ PO QAM ( Reported) TAKE WITH FOOD Ranitidine (Ranitidine) 150 Mg Capsule 150 MG PO HS (Reported) Spironolactone (Spironolactone) 25 Mg Tablet 25 MG PO DAILY changed to 12.5mg by . Prescribed by: BEATA CROSS DO As needed Nitroglycerin SL (Nitrostat) 0.4 Mg Tab.subl 0.4 MG SL Q5MIN PRN PRN For Chest Pain PMH PMH Hypertension with hypertensive heart disease Chronic LBBB First degree AV block Hyperlipidemia Moderate Mitral regurgitation and mod tricuspid regurgitation Paroxysmal Atrial Fibrillation Chronic Kidney disease. Followed by Dr Key Chronic diastolic heart failure (Echo 06/2016 EF 25-30% worse from prior TTE, significant dyssynchny Renal artery stenosis s/p renal stent placement Surgical History Cataract Cardiac cath Hysterectomy Tonsillectomy Laser ablation of varicose veins Left Hip replacement Cystocele repair MOHS procedure for squamous cell carcinoma Family History Father hypertension, CVA, from kidney failure with history of KS at 70 Mother DM, hypertension, of massive KS in sleep at 83 Sister 1 from massive KS Social History Occupation: Retired, former [employer] Hx Alcohol Use: No Hx Substance Use: No Hx Tobacco Use: Yes Smoking Status: Former Smoker Living Arrangement: with Family Social History Hx Alcohol Use: No Hx Substance Use: No Hx Tobacco Use: Yes Smoking Status: Former Smoker Exam Vital Signs Vital Sign - Last Date Time Temp Pulse Resp B/P Pulse Ox O2 Delivery O2 Flow Rate FiO2 08/17/16 15:02 36.3 48 16 125/58 97 Nasal Cannula 2.00 Lab and Diagnostics Result Diagram: 08/17/16 1110 08/17/16 1110 Cardiac Echo Impressions Echocardiogram Report Name: WILLIE ACOSTA CStudy Date: Height: 60 in Hospital Exam Location: [facility] Weight: 125 lb Gender: Female BSA: 1.5 m2 : 1935 Age: 80 yrs BP: 148/74 mmHg Reason For Study: Acute Coronary Syndrome, CHF Ordering Physician: Performed By: Kelsea Curran Interpretation Summary The left ventricle is normal in size but left ventricular systolic function is moderate to severely reduced with the ejection fraction visually estimated to be 25-30%, now with a significant dyssynchronous contraction pattern, consistent with a conduction abnormality and moderate to severe global hypokinesis that is worse in the septum and apex. This is much more pronounced compared to the previous study and compared to the prior exam, left ventricular function has significantly decreased. The right ventricle is normal size and right ventricular systolic function is at the lower limits of normal. This is unchanged compared to the previous study. The right ventricular systolic pressure is estimated at 48 mmHg assuming a right atrial pressure of 3 mm Hg, and is likely significantly lower compared to the previous study. Both atria are normal in size and both atria have mildly decreased in size since the prior echo exam. There is moderate mitral regurgitation and moderate tricuspid regurgitation that appear less prominent compared to the previous study. There is mild aortic stenosis and mild aortic regurgitation that are unchanged compared to the previous study. The ascending aorta is at the upper limits of normal in size but is unchanged compared to the previous study. The patient was in probable sinus tachycardia with heart rates between 100- 120 bpm during the exam which is considerably faster compared to the previous study. 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 acute, active #chronic LBBB, hx of 1st AVB, EKG showed new junctional bradycardia, IVCD, POA, precipitated by new BB-labetalol, hyperkalemia. -consulted with Cardiology, will follow -Tentative plan for biventricular pacer/ICD, appreciate input -Telemetry #Severe systolic dysfunction, significant dyssynchrony, POA, clinically euvolemic, stable respiratory status -Hold diuretics given present illness for now -will continue imdur, statin, aspirin #hyperkalemia, TANIA on CKD, POA, likely from dehydration given newly started aldactone, K replacement -monitor w/o IVF, trend cr tomorrow, hold aldactone, -trend K this evening and tomorrow #Episodes nausea, POA, asymptaomtic now, patient thinks that is from side effect from hydralazine as it happened in the past, -hold hydralazine for now, zofran prn for n/v chronic, stable HTN, will resume amlodipine tomorrow, continue imdur today Hyperlipidemia, continue statin Moderate Mitral regurgitation and mod tricuspid regurgitation, not active Paroxysmal Atrial Fibrillation, monitor on telemetry dispo:Patient will be admitted with inpatient status with expectation of inpatient therapy for more than 2 midnights Disposition will be determined by cardiac intervention, diet:renal, cardiac dvt ppx:SCD Full code Time spent 65min Abhijit Carpio MD Aug 17, 2016 16:08
[2016-08-17] MEDS ORDERED: Isosorbide Mononitrate 60 mg ER24 Tablet PO SCH (17:05)
[2016-08-17 18:19] LABS: APPEARANCE,URINE HAZY (CLEAR,HAZY); COLOR,URINE YELLOW (YELLOW); OCCULT BLOOD,URINE TRACE (NEGATIVE); PH,URINE 6.5 (5.0-8.0); UROBILINOGEN,URINE NORMAL (NORMAL)
[2016-08-17] MEDS: 0.9% Sodium Chloride 1,000 ML IV SCH (19:25)
[2016-08-17] MEDS ORDERED: Non-Formulary Medication (Cranberry Conc/C/Bacill Coag (Cranberry Tablet) 1 EACH) PO SCH (20:30)
[2016-08-17] MEDS ORDERED: Non-Formulary Medication (Amlodipine 10 MG) PO SCH (20:30)
[2016-08-18] VITALS (8 sets, daily range): BP systolic 156–181; BP diastolic 53–72; PULSE 77–91; RESP 16–20; O2SAT 92–94
--- NOTE | 2016-08-18 01:31 | NUR ---
Heart rate, Potassium: Pt's heart rate has increased as the night progresses, was 40s-50s; last checked it was in the 50s-60s. Pt states having dizziness occasionally when first getting up, has denied dizziness thus far this shift. Bed alarm activated for pt safety. Early evening, pt received a dose of Kayexalate for high potassium level. It was rechecked at ~ 2200 and found to be 5.5, pt just started having bowel movements now, at 0130. Labs scheduled again around 0500.
[2016-08-18] MEDS: 0.9% Sodium Chloride 1,000 ML IV SCH (05:49)
--- NOTE | 2016-08-18 06:29 | NUR ---
Tele: Pt was a fib with an IVCD and converted to SR rate 70s at ~ 0300.
--- NOTE | 2016-08-18 06:30 | NUR ---
Nausea, Emesis, Leg pain: Late this morning, pt called staff to room because she suddenly had nausea and had a light brownish, pasty emesis in the bed. Also reported discomfort to upper thighs. Pt has had 2 BMs through the night after Kayexalate last evening and labs will be drawn again this morning. Pt then reported feeling generally "ill". States has had flu like symptoms and worries she may be coming down with the same.
[2016-08-18 07:50] LABS: BASOPHILS % (AUTO) 0.4 % (0-3); EOSINOPHILS % (AUTO) 5.3 % (0-5); MONOCYTES % (AUTO) 10.9 % (4-12); Mean Corpuscular Hemoglobin 30.6 pg (27.0-35.0); Mean Corpuscular Volume 97.4 fL (81-100); NEUTROPHILS % (AUTO) 64.1 % (40-74); Platelet Count 131 bil/L (150-400)
[2016-08-18 08:11] LABS: Magnesium 2.8 mg/dL (1.6-2.6)
[2016-08-18] MEDS ORDERED: Non-Formulary Medication (Amlodipine 10 MG) PO SCH (08:30)
[2016-08-18] MEDS ORDERED: Isosorbide Mononitrate 60 mg ER24 Tablet PO SCH (09:00)
--- NOTE | 2016-08-18 11:14 | PCM.PNMED ---
Subjective Date of Service Aug 18, 2016 Subjective Had one episode of vomiting controlled with Zofran Patient was converted to sinus rate of 70s around 3 AM Blood pressure remained hypertensive to 150s and 160s Potassium normalized, renal function continues to improve Exam Vital Signs Vital Sign - Last Date Time Temp Pulse Resp B/P Pulse Ox O2 Delivery O2 Flow Rate FiO2 08/18/16 07:56 Supplement Oxygen 08/18/16 05:05 36.9 81 16 170/53 92 2.00 Intake and Output 08/17/16 08/17/16 08/18/16 Cumulative From/Thru 15:00 23:00 07:00 08/17/16 11:01 - 08/18/16 06:28 Intake Total 236 ml 926 ml 1162 ml Output Total 500 ml 500 ml Balance 236 ml 426 ml 662 ml Intake Oral 236 ml 200 ml 436 ml IV Total 726 ml 726 ml Output Urine Total 500 ml 500 ml # Voids 1 1 # Bowel Movements 0 1 1 Exam NAD, comfortably laying down on the bed no JVD, MMM, no LAD RRR, nl s1, s2 no mrg CTAB, no w,c S,ND,NT,normoactive BS+ warm, no edema, pulses 2/2 IVs and Medications Medications Reviewed: Medications were reviewed in detail Lab and Diagnostics Result Diagram: 08/18/1673208/[id number]/16732 Cardiac Echo Impressions Echocardiogram Report Name: WILLIE ACOSTA CStudy Date: Height: 60 in Hospital Exam Location: [facility] Weight: 125 lb Gender: Female BSA: 1.5 m2 : 1935 Age: 80 yrs BP: 148/74 mmHg Reason For Study: Acute Coronary Syndrome, CHF Ordering Physician: Performed By: Kelsea Curran Interpretation Summary The left ventricle is normal in size but left ventricular systolic function is moderate to severely reduced with the ejection fraction visually estimated to be 25-30%, now with a significant dyssynchronous contraction pattern, consistent with a conduction abnormality and moderate to severe global hypokinesis that is worse in the septum and apex. This is much more pronounced compared to the previous study and compared to the prior exam, left ventricular function has significantly decreased. The right ventricle is normal size and right ventricular systolic function is at the lower limits of normal. This is unchanged compared to the previous study. The right ventricular systolic pressure is estimated at 48 mmHg assuming a right atrial pressure of 3 mm Hg, and is likely significantly lower compared to the previous study. Both atria are normal in size and both atria have mildly decreased in size since the prior echo exam. There is moderate mitral regurgitation and moderate tricuspid regurgitation that appear less prominent compared to the previous study. There is mild aortic stenosis and mild aortic regurgitation that are unchanged compared to the previous study. The ascending aorta is at the upper limits of normal in size but is unchanged compared to the previous study. The patient was in probable sinus tachycardia with heart rates between 100- 120 bpm during the exam which is considerably faster compared to the previous study. 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 acute, active #chronic LBBB, hx of 1st AVB, EKG showed new junctional bradycardia, IVCD, POA, precipitated by new BB-labetalol, hyperkalemia. -Rhythm converted back to sinus on telemetry, will follow with 12-lead serial EKG -consulted with Cardiology 08/17, will follow -Tentative plan for biventricular pacer/ICD, appreciate input -Continue Telemetry #Severe systolic dysfunction, significant dyssynchrony, POA, clinically euvolemic, stable respiratory status -Hold diuretics given present illness on admission -will continue imdur, statin, aspirin #hyperkalemia, TANIA on CKD, POA, likely from dehydration given newly started aldactone, K replacement -Potassium level normalized today, renal function further improved -monitor w/o IVF, trend cr tomorrow, held aldactone on admission #Episodes nausea, POA, asymptaomtic now, patient thinks that is from side effect from hydralazine as it happened in the past -Symptoms is mild but continued overnight, -hold hydralazine for now, zofran prn for n/v chronic, stable HTN, resumed amlodipine, continue imdur Hyperlipidemia, continue statin Moderate Mitral regurgitation and mod tricuspid regurgitation, not active Paroxysmal Atrial Fibrillation, monitor on telemetry dispo:pending disposition will be determined by cardiac intervention, diet:renal, cardiac dvt ppx:SCD Full code VTE Mechanical Devices: Intermittant Pneumatic CD Resuscitation Status: CPR: Attempt Resuscitation Time spent 35 minutes Abhijit Carpio MD Aug 18, 2016 11:09
--- NOTE | 2016-08-18 11:15 | NUR ---
Social Work Note Initial Assessment: D/A: The Pt is an 80 y/o female that was admitted for bradycardia, hyperkalemia as per EMR. The Pt's PCP is MD Ghulam Mukherjee and her primary insurance is Medicare with [employer], no LTC or VA benefits. The Pt's readmission risk score is 3. EMR reviewed, SW met with the Pt and the Pt's at bedside to discuss SW role and discharge planning. The Pt lives with her and daughter in a one story home in [place]. DPOA explored, paperwork requested and given to Pt. The Pt is independent at her baseline, does use any DME, and her daughter provides transportation needs. The Pt has no HH/SNF history. SW will continue to follow. H&P note reflects that Cardiology will be involved. P: Pt likely to be discharged home when medically stable with family to provide POV transportation. Cardiology likely to be involved. No anticipated discharge needs. SW will continue to follow. KATIE Bloom MSW Addendum: 08/18/16 at 1115 by KEYONNA ESTRADA Amended: Links added.
--- NOTE | 2016-08-18 11:17 | PCM.PNMED ---
Subjective Date of Service Aug 18, 2016 Subjective Nephrology Progress Note: Attending Dr. Dave Goldberg is an 80-year-old female with a past medical history significant who presented to [facility] Emergency Department at the direction of her PCP Dr. Mukherjee for bradycardia and is being treated TANIA and hyperkalemia. Hospital day #2. Overnight: The patient was nauseous and vomited brown emesis overnight. She also reported continued upper thigh pain. Telemetry overnight: Junctional rhythm, heart rate 40s to 50s and converted to sinus rhythm, heart rate 70 to 80s, with IVCD and first degree AV block. The patient is resting in bed comfortably and in no acute distress. She reports that she is no longer nauseous. She continues to endorse fatigue and chronic minimally productive cough. She denies headache, chest pain, shortness of breath, abdominal pain, nausea, vomiting, fever, chills, dysuria, diarrhea or constipation. She has had several loose bowel movements secondary to Kayexalate given yesterday. She is voiding without difficulty. . Exam Vital Signs Vital Sign - Last Date Time Temp Pulse Resp B/P Pulse Ox O2 Delivery O2 Flow Rate FiO2 08/18/16 07:56 Supplement Oxygen 08/18/16 05:05 36.9 81 16 170/53 92 2.00 Intake and Output 08/17/16 08/17/16 08/18/16 Cumulative From/Thru 15:00 23:00 07:00 08/17/16 11:01 - 08/18/16 06:28 Intake Total 236 ml 926 ml 1162 ml Output Total 500 ml 500 ml Balance 236 ml 426 ml 662 ml Intake Oral 236 ml 200 ml 436 ml IV Total 726 ml 726 ml Output Urine Total 500 ml 500 ml # Voids 1 1 # Bowel Movements 0 1 1 Exam General: Elderly female lying in bed and in no acute distress, well-developed, well-nourished, appropriately interactive. HEENT: Normocephalic, atraumatic. External ears without defect. Pupils equal, round, and reactive. Anicteric sclerae, moist conjunctivae, and no lid lag. Oropharynx free of erythema and cobble stoning with moist mucosa. Neck: Supple with full range of motion. No jugular venous distension. No bruits. No lymphadenopathy or thyromegaly. Cardiovascular: Regular rate and rhythm with no murmurs, rubs, or gallops appreciated Pulmonary: Clear to auscultation bilaterally with no crackles, wheezes, or rhonchi. Normal respiratory effort with no use of accessory muscles. Abdomen: Soft, nontender, nondistended, bowel sounds present. No hepatosplenomegaly or masses appreciated. Extremities: No clubbing, cyanosis, or edema. Skin: Normal temperature. Poor skin turgor. No rash, ulcers, or subcutaneous nodules appreciated. Neurological: Cranial nerves grossly intact. Psychiatric: Normal mood and affect. Alert and oriented to person, place, and time. . IVs and Medications Medications Reviewed: Medications were reviewed in detail Lab and Diagnostics Item Value Date Time Calcium Level 9.0 mg/dL 08/18/16 0733 Phosphorus Level 4.0 mg/dL 08/18/16 0733 Magnesium Level 2.8 mg/dL H 08/18/16 0733 Total Bilirubin 0.6 mg/dL 08/18/16 0733 Aspartate Amino Transf (AST/SGOT) 22 U/L 08/18/16 0733 Alanine Aminotransferase (ALT/SGPT) 18 U/L 08/18/16 0733 Alkaline Phosphatase 100 U/L 08/18/16 0733 Total Protein 6.9 g/dL 08/18/16 0733 Albumin 4.2 g/dL 08/18/16 0733 Result Diagram: 08/18/16 0733 08/18/16 07 Microbiology Urine eosinophils pending. Urine culture shows insufficient growth likely secondary to contamination. Repeat urinalysis with culture pending. . X-Rays, CTs and MRIs X-RAY CHEST ONE VIEW, PORTABLE IMPRESSION: No acute cardiopulmonary disease process. Dictated by: Radha Kelly MD, PhD on 08/17/2016 at 11:43 Approved by: Radha Kelly MD, PhD on 08/17/2016 at 11:44 US ABDOMEN IMPRESSION: 1. Cholelithiasis. No ultrasound findings to suggest acute cholecystitis. 2. 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 3. Moderate left renal atrophy and a 1.4 cm cyst in the superior pole.. 4. Fusiform ectasia of distal abdominal aorta. There is aortic atherosclerosis. Dictated by: Sue Staples M.D. on 07/22/2016 at 18:58 Approved by: Sue Staples M.D. on 07/22/2016 at 18:58 . 12-lead ECG EKG: Sinus bradycardia, heart rate 41,LBBB. . Cardiac Echo Impressions Echocardiogram Interpretation Summary The left ventricle is normal in size but left ventricular systolic function is moderate to severely reduced with the ejection fraction visually estimated to be 25-30%, now with a significant dyssynchronous contraction pattern, consistent with a conduction abnormality and moderate to severe global hypokinesis that is worse in the septum and apex. This is much more pronounced compared to the previous study and compared to the prior exam, left ventricular function has significantly decreased. The right ventricle is normal size and right ventricular systolic function is at the lower limits of normal. This is unchanged compared to the previous study. The right ventricular systolic pressure is estimated at 48 mmHg assuming a right atrial pressure of 3 mm Hg, and is likely significantly lower compared to the previous study. Both atria are normal in size and both atria have mildly decreased in size since the prior echo exam. There is moderate mitral regurgitation and moderate tricuspid regurgitation that appear less prominent compared to the previous study. There is mild aortic stenosis and mild aortic regurgitation that are unchanged compared to the previous study. The ascending aorta is at the upper limits of normal in size but is unchanged compared to the previous study. The patient was in probable sinus tachycardia with heart rates between 100- 120 bpm during the exam which is considerably faster compared to the previous study. Assessment & Plan Kim Goldberg is an 80-year-old female with a past medical history significant who presented to [facility] Emergency Department at the direction of her PCP Dr. Mukherjee for bradycardia and is being treated TANIA and hyperkalemia. Hospital day #2. Impression: 1. Acute kidney injury on chronic kidney disease stage III/IV. - Etiology likely secondary to prerenal azotemia (significant hypovolemia from over diuresis). Rule out AIN. 2. Symptomatic bradycardia likely secondary to hyperkalemia and underlying heart disease. Resolved. 3. Anion gap metabolic acidosis secondary to TANIA. Resolved. 4. Hyperkalemia. Resolved. - Etiology likely secondary to TANIA and current medications including Spironolactone, labetalol, and potassium chloride supplementation. 5. Hypermagnesemia. Resolving. 6. Atrophic left kidney. 7. Hypertension with hypertensive heart disease and hypertensive nephrosclerosis. 8. Normocytic normochromic anemia secondary to chronic kidney disease. Plan: - Repeat urinalysis as initial urinalysis medical billing representative of contamination. - Ordered respiratory viral PCR for possible flulike symptoms. - Anion gap metabolic acidosis improving. Lactic acid normal. - Post void residual less than 400cc, therefore, renal ultrasound not indicated and recent abdominal ultrasound on 07/22/2016 showed no evidence of nephrolithiasis or hydronephrosis but evidence of atrophic left kidney, as above. - Baseline creatinine ~ 2.0-2.4 on 08/10. Renal function improving. Discontinued IV fluids. Renal replacement therapy is not indicated at this time. - Continue to hold spironolactone and labetalol. Increased amlodipine to 10 mg daily. Continue Imdur 60 mg daily. - Continue to hold furosemide and potassium chloride supplementation for now. - Continue to hold magnesium oxide 500 twice daily. - Recommend cardiology consult. . VTE Mechanical Devices: Intermittant Pneumatic CD Resuscitation Status: CPR: Attempt Resuscitation Lesly Raymundo DO Aug 18, 2016 11:17
[2016-08-18 12:03] LABS: APPEARANCE,URINE CLEAR (CLEAR,HAZY); COLOR,URINE STRAW (YELLOW); PH,URINE 7.5 (5.0-8.0)
[2016-08-18 12:04] LABS: OCCULT BLOOD,URINE TRACE (NEGATIVE); UROBILINOGEN,URINE NORMAL (NORMAL)
[2016-08-18] MEDS ORDERED: Furosemide 10 mg/mL 4 mL Inj IVPUSH ONE (14:35)
--- NOTE | 2016-08-18 15:12 | PCM.CHPCAR ---
Consult Subjective Date of service Aug 18, 2016 Date of admit Aug 17, 2016 at 14:10 Provider Requesting Consult Requesting Provider: Abhijit Carpio MD Primary Care Physician Primary Care Provider: Ghulam Mukherjee MD Chief Complaint CHF/Bradycardia History of Present Illness This is a 80 y/o female with chronic history of left ventricular systolic dysfunction. Her LVEF has recently decreased after repeating an echocardiogram this past June. She had a myocardial perfusion study which showed fixed perfusion defect and it was thought that this represented a prior myocardial infarction. She has had a coronary angiogram in 2006 for chest pain but that revealed normal coronaries. She is not on ACEi or ARB due to severe CKD. She is not on dialysis as of yet. She comes in with fatigue and was found to have significant bradycardia with ventricular escape rhythm. Her potassium was significantly elevated at 6.7 and she was treated for this and her potassium has improved and so has her rhythm. She has returned back to sinus with LBBB. During this time, she has received IVFs for her acute on chronic KD and her diuretics have been placed on hold appropriately. Unfortunately, her saturations have decreased and we ordered an urgent CXR which shows pulmonary congestion. I discussed the case with nephrology and agree that it was ok to give at least one time dose of IV Lasix 40 mg now. I have also been asked to see the patient to see if PPM/[employer]-D is required at this time given her severely depressed EF and recent bradycardia. Review of Systems General: Reports: Energy (decreased) Fatigue Ears, Nose, Mouth & Throat: Denies: Any hearing loss Respiratory: Reports: Dyspnea with exertion Orthopnea or PND Significant dyspnea Cardiovascular: Denies: Chest Discomfort Lightheadedness or syncope Gastrointestinal: Denies: Recent melena or hematochezia Ulcers or GI blood loss Genitourinary: Denies: Hematuria Urinary symptoms Musculoskeletal: Denies: Significant joint or back problems Neurological: Denies: Any history of stroke/TIA symptoms Psychiatric: Denies: Anxiety Depression Endocrine: Denies: Heat or cold intolerance Integumentary: Denies: Any change in hair or nails Hematologic/Immunologic: Denies: Recent history of anemia PMH Past Medical History Hypertension with hypertensive heart disease Chronic LBBB First degree AV block Hyperlipidemia Moderate Mitral regurgitation and mod tricuspid regurgitation Paroxysmal Atrial Fibrillation Chronic Kidney disease. Followed by Dr Key Chronic diastolic heart failure (Echo 06/2016 EF 25-30% worse from prior TTE, significant dyssynchrony) Renal artery stenosis s/p renal stent placement Past Surgical History Cataract Hysterectomy Tonsillectomy Laser ablation of varicose veins Left Hip replacement Cystocele repair MOHS procedure for squamous cell carcinoma Bedside Blood Glucose: 165 Scheduled Amlodipine (Amlodipine) 10 Mg Tablet 10 MG PO BID (Reported) Aspirin Chew (Aspirin Chew) 81 Mg Chew 81 MG PO HS (Reported) Atorvastatin (Lipitor) 80 Mg Tablet 80 MG PO HS (Reported) Cholecalciferol (Vitamin D3) (Vitamin D3) 1,000 Unit Tab.chew 1,000 UNIT PO HS ( Reported) Cranberry Conc/C/Bacill Coag (Cranberry Tablet) 1 Each Tablet 1 EACH PO BID ( Reported) Furosemide (Furosemide) 40 Mg Tablet 40 MG PO QAM (Reported) Hydralazine (Hydralazine) 100 Mg Tablet 100 MG PO TID Isosorbide MN ER (Isosorbide MN ER) 60 Mg Tab.er.24h 60 MG PO QAM (Reported) Labetalol (Labetalol) 200 Mg Tablet 200 MG PO BID Magnesium Oxide (Magnesium) 500 Mg Capsule 500 MG PO BID (Reported) Multivits-Min/Iron/FA/Lutein (Centrum Silver Women Tablet) 8 Mg Iron-400 Mcg- 300 Mcg Tablet 1 EACH PO QAM (Reported) Potassium Chloride (Potassium Chloride) 10 Meq Tab.er.prt 10 MEQ PO QAM ( Reported) TAKE WITH FOOD Ranitidine (Ranitidine) 150 Mg Capsule 150 MG PO HS (Reported) Spironolactone (Spironolactone) 25 Mg Tablet 12.5 MG PO DAILY (Reported) Scheduled PRN Epinephrine (Epipen 2-David) 0.3 Mg/0.3 Ml Auto.injct 1 DOSE INJ prn PRN PRN For Anaphyllaxis (Reported) Nitroglycerin SL (Nitrostat) 0.4 Mg Tab.subl 0.4 MG SL Q5MIN PRN PRN For Chest Pain Discontinued Medications Ferrous Sulfate (Ferrous Sulfate) 324 Mg Tablet.dr 324 MG PO TID (Reported) Spironolactone (Spironolactone) 25 Mg Tablet 25 MG PO DAILY Current Inpatient Medications Current Medications Calcium Gluconate 1 gm Q5MIN PRN IVPUSH Last administered on 08/17/16t 13:03; Admin Dose 1 GM; Start 08/17/16 at 12:25 Al Hydrox/Mg Hydrox/Simethicone 30 ml Q6 PRN PO; Start 08/17/16 at 14:35 Ondansetron HCl Dose range: 4 mg to 8 mg Q4H PRN IVPUSH; Start 08/17/16 at 14: 35 Acetaminophen 975 mg 975 mg Q6H PRN PO; Start 08/17/16 at 14:35 Sodium Chloride 1,000 ml @ 80 mls/hr [id number] IV Last administered on 08/18/16 05:49; Admin Dose 80 MLS/HR; Start 08/17/16 at 16:25; Stop 08/18/16 at 10:07; Status DC Aspirin 81 mg HS PO Last administered on 08/17/16 22:42; Admin Dose 81 MG; Start 08/17/16 at 21:00 Isosorbide Mononitrate 60 mg DAILY PO; Start 08/17/16 at 17:05; Stop 08/17/16 at 17:38; Status DC Nitroglycerin 0.4 mg Q5MIN PRN SL; Start 08/17/16 at 17:05 Atorvastatin Calcium 80 mg HS PO Last administered on 08/17/16 21:18; Admin Dose 80 MG; Start 08/17/16 at 21:00 Cholecalciferol 1,000 unit HS PO Last administered on 08/17/16 21:20; Admin Dose 1,000 UNIT; Start 08/17/16 at 21:00 Non-Formulary Medication 1 each BID PO; Start 08/17/16 at 20:30; Status UNV Non-Formulary Medication 500 mg BID PO; Start 08/17/16 at 20:30; Stop 08/17/16 at 20:30; Status DC Multivitamins/ Minerals Therapeutic 1 tablet DAILY PO Last administered on 07:51; Admin Dose 1 TABLET; Start 08/18/16 at 08:30 Famotidine 20 mg HS PO Last administered on 08/17/16 21:20; Admin Dose 20 MG; Start 08/17/16 at 20:30 Non-Formulary Medication 10 mg BID PO; Start 08/17/16 at 20:30; Stop 08/17/16 at 20:30; Status DC Non-Formulary Medication 10 mg BID PO; Start 08/18/16 at 08:30; Stop 08/18/16 at 08:30; Status DC Ondansetron HCl 4 mg Q6H PRN IVPUSH; Start 08/17/16 at 17:05 Isosorbide Mononitrate 60 mg DAILY PO Last administered on 08/18/16 07:52; Admin Dose 60 MG; Start 08/18/16 at 09:00 Amlodipine Besylate 5 mg DAILY PO Last administered on 08/18/16 07:51; Admin Dose 5 MG; Start 08/18/16 at 08:30; Stop 08/18/16 at 10:08; Status DC Amlodipine Besylate 10 mg DAILY PO; Start 08/19/16 at 08:30 Carvedilol 3.125 mg BIDWM PO; Start 08/18/16 at 17:30 Allergies: Coded Allergies: Sulfa (Sulfonamide Antibiotics) (Verified Allergy, Unknown, KIDNEY PROBLEMS, 08/17/16) Family History Family History Significant family hx of cardiovascular disease. Otherwise, noncontributory in this 80 y/o female patient. Social History Hx Alcohol Use: NoHx Substance Use: NoHx Tobacco Use: Yes Smoking Status: Former Smoker Living Arrangement: with Family Exam Vital Signs Vital Sign - Last Date Time Temp Pulse Resp B/P Pulse Ox O2 Delivery O2 Flow Rate FiO2 08/18/16 11:37 36.7 80 16 176/65 93 Room Air 08/18/16 05:05 2.00 Intake and Output 08/17/16 08/17/16 08/18/16 Cumulative From/Thru 15:00 23:00 07:00 08/17/16 11:01 - 08/18/16 06:28 Intake Total 236 ml 926 ml 1162 ml Output Total 500 ml 500 ml Balance 236 ml 426 ml 662 ml Intake Oral 236 ml 200 ml 436 ml IV Total 726 ml 726 ml Output Urine Total 500 ml 500 ml # Voids 1 1 # Bowel Movements 0 1 1 General: Pleasant Cooperative Frail Skin: Warm & dry to touch Head: Normocephalic Neck: JVP elevated Ears, Nose & Throat: Fair dentition Chest: Crackles Cardiac: Regular rhythm Normal S1 and S2 Systolic murmur (IV/ SHM at apex) Abdomen: Soft, non-distended, non-tender Extremities: No deformities/club/erythema/edema Neurological: Alert & oriented No gross motor or sensory deficits Psychological: Affect & interaction appropriate Lab and Diagnostics Result Diagram: 08/18/1633 08/18/16732 12-lead ECG 1) Sinus rhythm with AV with ventricular escape rhythm. 2) Sinus rhythm 100% conducted with LBBB Additional Diagnostics: Coronary angiogram 2007: Normal coroanaries Multiple myocardial perfusion studies: Read as abnormal. Based on my review, there is a possibility that this is false positive since she has significantly reduced LVEF and LBBB which can create fixed defects mimicking prior myocardial infarction. Assessment & Plan Problems: (1) Acute on chronic systolic (congestive) heart failure Plan: Etiolgoy is not certain. I suspect this is not ischemic cardiomyopathy based on prior studies. Unfortunately, she is not an ideal candidate for coronary angiogram due to significant CKD. Also, she has developed acute CHF due to cessation of diuretic and IVFs. We will reinitiate diuretic by giving an one time dose of IV Lasix 40 mg now and see how she does. I have discussed with nephrology about this and they agree with the one time Lasix for now. She is going to be very sensitive to IVFs and will most definitely need diuretics when she is discharged. I personally would recommend Lasix and cutting her spironolactone to 12.5 mg and no potassium supplementation and closely follow up her BMP as outpatient. If she is able to recover nicely from her CHF then we can schedule her for a more urgent outpatient consult with Dr. Pena to discuss about cardiac resynchronization therapy w/ or w/o defibrillator. I discussed briefly about ICD and that this will prevent her from having a SCD/ SCA and pros and cons about this treatment. Her daughter will like to discuss about this in more detail as an outpatient when her mother is more clinically stable. However, everyone is in an agreement with [employer]. Status: Acute ICD Code: I50.23 (2) Sinoatrial arrest with toni/ventricular escape Plan: Restart low dose carvedilol and closely monitor her rhythm over the next 24 hours. Increase as tolerated. However, it appears the primary culprit for her bradycardia was secondary to hyperkalemia secondary to HF medications. She is a pretty good candidate for [employer] due to recent hospitalizations for CHF and this would help to prevent syncope due to malignant bradycardia. Status: Resolved ICD Code: I46.9 (3) HTN (hypertension) Qualifiers: Hypertension type: essential hypertension Hypertension goal: less than 130 /80 Qualified Code: I10 - Essential (primary) hypertension Plan: Given her severely reduced LVEF and valvular HD, she will need aggressive HTN control. Ideally, she should be on an ACEi or ARB but due to her CKDIV, this is not an option. She has been placed on Imdur and Hydralazine for afterload reducing effect but data shows more support for Isordil TID with Hydralazine TID instead of Imdur and Hydralazine. I will start her on Isordil 20 mg TID and restart her Hydralazine. The other option is BiDil which is a combo tablet but unfortunately, this is much more expensive. Status: Acute ICD Code: I10 VTE Mechanical Devices: Intermittant Pneumatic CD Resuscitation Status: CPR: Attempt Resuscitation Time spent 80 minutes Copies to: Jerson ePna MD; Ghulam Mukherjee MD; Vipni Jain MD, Oscar J MD Aug 18, 2016 15:12
--- NOTE | 2016-08-18 15:24 | DRSVH ---
PROCEDURE: X-RAY CHEST ONE VIEW, PORTABLE ([id number]) INDICATIONS: Congestive heart failure TECHNIQUE: One view of the chest was acquired. COMPARISON: None. FINDINGS: Surgical changes and devices: None. Lungs and pleura: Diffuse, widespread bilateral pulmonary interstitial and bibasilar air space opaci ties are present. No pleural effusion or pneumothorax. Mediastinum: Mediastinal contours appear normal. Heart size is enlarged. Bones and chest wall: No suspicious bony lesions. Overlying soft tissues appear unremarkable. IMPRESSION: CHF and/or pneumonia involving the lung bases. Dictated by: Albaro Olmedo [facility] Interpreted: Andreas Rivera MD on 08/18/2016 at 15:23 Transcribed by: SHANNNO on 08/18/2016 at 15:24 Approved by: Andreas Rivera M.D. on 08/19/2016 at 10:54
--- NOTE | 2016-08-18 16:52 | NUR ---
leg cramps/tele/resp/voiding Pt intermittently c/o leg cramps this shift, warm blankets provided to legs and pt reports this helps, also given tylenol and pt reports effective at decreasing pain. Called MD and obtained order for k-pad heating pad. Tele this shift SR 70-80's with 1st degree AVB and IVCD, with some PACs and PVCs. Pt denies any chest pain today. Pt reports increasing SOB this afternoon, sheet metal assembler and riveter in to see pt and ordered CXR and dose of IV lasix and new BP meds. IV lasix given and pt up to BSC frequently to void. O2 sats on RA was 87% after ambulating back from BR, placed on 2LO2 and sats 93%. Call light in reach. Bed alarm for safety. Frequent rounding. Care continues.
--- NOTE | 2016-08-18 16:59 | NUR ---
RSV positive Viral resp panel collected by RN this morning. Call from lab with positive RSV. Called infection control nurse and confirmed isolation to be contact isolation. MD notified and aware. Patient and family updated on this information and teaching on isolation. Care continues.
--- NOTE | 2016-08-18 21:55 | NUR ---
Problem: Fall risk-Patient states that she experiences intermittent dizziness with ambulation. states that she is a wall walker at home. Patient states she uses this method to prevent a fall. Intervention: Patient is a stand by assist for BSC. Bed alarm is on. Call light in reach. Pt & aware of fall prevention protocol. Fall precaution posted in room. Evaluation: Patient has not experienced a fall on this shift. Safety: Bed is in low position with upper rails in place. Bed alarm is on. Skid socks on at all times. Pt. acknowledges fall risk preventions/interventions & agrees to abide by them.
[2016-08-19] VITALS (9 sets, daily range): BP systolic 147–167; BP diastolic 62–72; PULSE 71–91; RESP 16–20; O2SAT 92–97
--- NOTE | 2016-08-19 05:16 | NUR ---
NOC shift: Uneventful, restful evening. PT alert- intermittently forgetful. Bed alarm on for safety. pt sleeping comfortably- no c/o pain.
[2016-08-19 05:44] LABS: BASOPHILS % (AUTO) 0.5 % (0-3); EOSINOPHILS % (AUTO) 7.2 % (0-5); MONOCYTES % (AUTO) 16.9 % (4-12); Mean Corpuscular Hemoglobin 30.9 pg (27.0-35.0); Mean Corpuscular Volume 94.3 fL (81-100); NEUTROPHILS % (AUTO) 41.8 % (40-74); Platelet Count 127 bil/L (150-400)
[2016-08-19 06:02] LABS: Magnesium 2.2 mg/dL (1.6-2.6); Phosphorus 3.9 mg/dL (2.5-4.9)
[2016-08-19] MEDS: Isosorbide Dinitrate 40 mg ER24 Tablet PO SCH ×3 (08:30→21:03)
[2016-08-19] MEDS ORDERED: Albuterol 2.5 mg/3 mL Inhalation Solution NEB PRN (11:00)
--- NOTE | 2016-08-19 11:13 | PCM.PNMED ---
Subjective Date of Service Aug 19, 2016 Subjective Nephrology Progress Note: Attending Dr. Dave Adamsbrandielito is an 80-year-old female with a past medical history significant who presented to [facility] Emergency Department at the direction of her PCP Dr. Mukherjee for bradycardia and is being treated TANIA and hyperkalemia. Hospital day #3. Overnight: There were no acute events. Telemetry overnight: Sinus rhythm, heart rate 70 to 80s, with IVCD, first degree AV block, and occasional PVC's. The patient is resting in bed comfortably and in no acute distress. She reports that she is no longer nauseous. She continues to endorse minimally productive dry cough that she feels may be worsening. She denies headache, chest pain, shortness of breath, abdominal pain, nausea, vomiting, fever, chills , dysuria, diarrhea or constipation. She is voiding without difficulty. She last had a BM yesterday. . Exam Vital Signs Vital Sign - Last Date Time Temp Pulse Resp B/P Pulse Ox O2 Delivery O2 Flow Rate FiO2 08/19/16 05:28 37.1 72 18 156/62 95 Nasal Cannula 2.00 Intake and Output 08/18/16 08/18/16 08/19/16 Cumulative From/Thru 15:00 23:00 07:00 08/17/16 11:01 - 08/19/16 05:33 Intake Total 920 ml 2082 ml Output Total 700 ml 1200 ml Balance 220 ml 882 ml Intake Oral 920 ml 1356 ml IV Total 726 ml Output Urine Total 700 ml 1200 ml # Voids 1 # Bowel Movements 1 2 Exam General: Elderly female lying in bed and in no acute distress, well-developed, well-nourished, appropriately interactive. HEENT: Normocephalic, atraumatic. External ears without defect. Pupils equal, round, and reactive. Anicteric sclerae, moist conjunctivae, and no lid lag. Oropharynx free of erythema and cobble stoning with moist mucosa. Neck: Supple with full range of motion. JVD. No lymphadenopathy or thyromegaly. Cardiovascular: Regular rate and rhythm with no murmurs, rubs, or gallops appreciated Pulmonary: Scattered wheeze and fine crackles at bases bilaterally. Normal respiratory effort with no use of accessory muscles. Abdomen: Soft, nontender, nondistended, bowel sounds present. No hepatosplenomegaly or masses appreciated. Extremities: No clubbing, cyanosis, or edema. Skin: Normal temperature. Poor skin turgor. No rash, ulcers, or subcutaneous nodules appreciated. Neurological: Cranial nerves grossly intact. Psychiatric: Normal mood and affect. Alert and oriented to person, place, and time. . IVs and Medications Medications Reviewed: Medications were reviewed in detail Lab and Diagnostics Item Value Date Time Calcium Level 9.3 mg/dL 08/19/16 05 Phosphorus Level 3.9 mg/dL 08/19/16 0520 Magnesium Level 2.2 mg/dL 08/19/16 0520 Total Bilirubin 0.8 mg/dL 08/19/16 0520 Aspartate Amino Transf (AST/SGOT) 26 U/L 08/19/16 0520 Alanine Aminotransferase (ALT/SGPT) 19 U/L 08/19/16 0520 Alkaline Phosphatase 90 U/L 08/19/16 0520 Total Protein 6.6 g/dL 08/19/16 0520 Albumin 3.8 g/dL 08/19/16 0520 Result Diagram: 08/19/16 0508/19/16 05 Microbiology Urine eosinophils negative. Urine culture shows insufficient growth likely secondary to contamination. Repeat urinalysis revealed urine culture not indicated. Respiratory viral PCR was positive for RSV. . X-Rays, CTs and MRIs X-RAY CHEST ONE VIEW, PORTABLE IMPRESSION: CHF and/or pneumonia involving the lung bases. Dictated by: Albaro Olmedo RRA Interpreted: Andreas Rivera MD on 08/18/2016 at 15: 23 Transcribed by: SHANNON on 08/18/2016 at 15:24 X-RAY CHEST ONE VIEW, PORTABLE IMPRESSION: No acute cardiopulmonary disease process. Dictated by: Radha Kelly MD, PhD on 08/17/2016 at 11:43 Approved by: Radha Kelly MD, PhD on 08/17/2016 at 11:44 US ABDOMEN IMPRESSION: 1. Cholelithiasis. No ultrasound findings to suggest acute cholecystitis. 2. 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 3. Moderate left renal atrophy and a 1.4 cm cyst in the superior pole.. 4. Fusiform ectasia of distal abdominal aorta. There is aortic atherosclerosis. Dictated by: Sue Staples M.D. on 07/22/2016 at 18:58 Approved by: Sue Staples M.D. on 07/22/2016 at 18:58 . 12-lead ECG EKG: Sinus bradycardia, heart rate 41,LBBB. . Cardiac Echo Impressions Echocardiogram Interpretation Summary The left ventricle is normal in size but left ventricular systolic function is moderate to severely reduced with the ejection fraction visually estimated to be 25-30%, now with a significant dyssynchronous contraction pattern, consistent with a conduction abnormality and moderate to severe global hypokinesis that is worse in the septum and apex. This is much more pronounced compared to the previous study and compared to the prior exam, left ventricular function has significantly decreased. The right ventricle is normal size and right ventricular systolic function is at the lower limits of normal. This is unchanged compared to the previous study. The right ventricular systolic pressure is estimated at 48 mmHg assuming a right atrial pressure of 3 mm Hg, and is likely significantly lower compared to the previous study. Both atria are normal in size and both atria have mildly decreased in size since the prior echo exam. There is moderate mitral regurgitation and moderate tricuspid regurgitation that appear less prominent compared to the previous study. There is mild aortic stenosis and mild aortic regurgitation that are unchanged compared to the previous study. The ascending aorta is at the upper limits of normal in size but is unchanged compared to the previous study. The patient was in probable sinus tachycardia with heart rates between 100- 120 bpm during the exam which is considerably faster compared to the previous study. . Assessment & Plan Kim Goldberg is an 80-year-old female with a past medical history significant who presented to [facility] Emergency Department at the direction of her PCP Dr. Mukherjee for bradycardia and is being treated TANIA and hyperkalemia. Hospital day #3. Impression: 1. Acute kidney injury on chronic kidney disease stage III/IV. - Etiology secondary to prerenal azotemia (significant hypovolemia from over diuresis). Ruled out AIN. 2. Symptomatic bradycardia likely secondary to hyperkalemia and underlying heart disease. Resolved. 3. Anion gap metabolic acidosis secondary to TANIA.Resolved. 4. Hyperkalemia. Resolved. - Etiology likely secondary to TANIA and current medications including Spironolactone, labetalol, and potassium chloride supplementation. 5. Hypermagnesemia. Resolved. 6. Atrophic left kidney. 7. Hypertension with hypertensive heart disease and hypertensive nephrosclerosis. 8. Normocytic normochromic anemia secondary to chronic kidney disease. Plan: - Repeat urinalysis shows no culture indicated. - Respiratory viral PCR was positive for RSV. Supportive treatment per primary team. Took the liberty of starting PRN albuterol nebs. - Anion gap metabolic acidosis resolved. Lactic acid normal. - Post void residual less than 400cc, therefore, renal ultrasound not indicated and recent abdominal ultrasound on 07/22/2016 showed no evidence of nephrolithiasis or hydronephrosis but evidence of atrophic left kidney, as above. - Baseline creatinine ~ 2.0-2.4 on 08/10. Renal function improving and close to baseline. Renal replacement therapy is not indicated at this time. - Restart spironolactone tomorrow at half her usual dose from 25 mg down to 12.5 daily per cardiology. Continue amlodipine to 10 mg daily. Discontinued Isosorbide mononitrate 60 mg daily and started Isosorbide dinitrate 40 mg daily per cardiology. - Started furosemide 40 mg twice daily. Do no continue potassium chloride. - Continue to hold magnesium oxide 500 twice daily. - Cardiology was consulted and recs appreciated. From a renal stand point we will sign off. Please call us with any question or concerns. She will need to follow up within 1 week of discharge with her outsole skiver, Dr. Key, and a BMP to follow. . Pt was seen and examined. Case discussed with Dr. Raymundo. Agreed as above. We will sign off, please do not hesitate to call with any question. Dr. Acosta VTE Mechanical Devices: Intermittant Pneumatic CD Resuscitation Status: CPR: Attempt Resuscitation Lesly Raymundo DO Aug 19, 2016 09:10 Jamal Turner MD Aug 20, 2016 11:33
--- NOTE | 2016-08-19 12:06 | PCM.PNMED ---
Subjective Date of Service Aug 19, 2016 Subjective Patient was found to have RSV virus Denied more coughing or difficulty breathing There was some changes of regimen from Dr. Richter yesterday was given Lasix 40 mg IV, Isordil plus hydralazine were started, and imdur was stopped Remaining sinus on telemetry Exam Vital Signs Vital Sign - Last Date Time Temp Pulse Resp B/P Pulse Ox O2 Delivery O2 Flow Rate FiO2 08/19/16 10:11 Supplement Oxygen 08/19/16 09:26 36.7 78 18 167/71 94 2.00 Intake and Output 08/18/16 08/18/16 08/19/16 Cumulative From/Thru 15:00 23:00 07:00 08/17/16 11:01 - 08/19/16 05:33 Intake Total 920 ml 2082 ml Output Total 700 ml 1200 ml Balance 220 ml 882 ml Intake Oral 920 ml 1356 ml IV Total 726 ml Output Urine Total 700 ml 1200 ml # Voids 1 # Bowel Movements 1 2 Exam NAD, comfortably laying down on the bed no JVD, MMM, no LAD RRR, nl s1, s2 no mrg CTAB, no w,c S,ND,NT,normoactive BS+ warm, no edema, pulses 2/2 IVs and Medications Medications Reviewed: Medications were reviewed in detail Lab and Diagnostics Result Diagram: 08/19/16 0520 08/19/16 0520 Microbiology Urine eosinophils negative. Urine culture shows insufficient growth likely secondary to contamination. Repeat urinalysis revealed urine culture not indicated. Respiratory viral PCR was positive for RSV. . X-Rays, CTs and MRIs X-RAY CHEST ONE VIEW, PORTABLE IMPRESSION: CHF and/or pneumonia involving the lung bases. Dictated by: Albaro Olmedo RRA Interpreted: Andreas Rivera MD on 08/18/2016 at 15: 23 Transcribed by: SHANNON on 08/18/2016 at 15:24 X-RAY CHEST ONE VIEW, PORTABLE IMPRESSION: No acute cardiopulmonary disease process. Dictated by: Radha Kelly MD, PhD on 08/17/2016 at 11:43 Approved by: Radha Kelly MD, PhD on 08/17/2016 at 11:44 US ABDOMEN IMPRESSION: 1. Cholelithiasis. No ultrasound findings to suggest acute cholecystitis. 2. 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 3. Moderate left renal atrophy and a 1.4 cm cyst in the superior pole.. 4. Fusiform ectasia of distal abdominal aorta. There is aortic atherosclerosis. Dictated by: Sue Staples M.D. on 07/22/2016 at 18:58 Approved by: Sue Staples M.D. on 07/22/2016 at 18:58 . 12-lead ECG EKG: Sinus bradycardia, heart rate 41,LBBB. . Cardiac Echo Impressions Echocardiogram Interpretation Summary The left ventricle is normal in size but left ventricular systolic function is moderate to severely reduced with the ejection fraction visually estimated to be 25-30%, now with a significant dyssynchronous contraction pattern, consistent with a conduction abnormality and moderate to severe global hypokinesis that is worse in the septum and apex. This is much more pronounced compared to the previous study and compared to the prior exam, left ventricular function has significantly decreased. The right ventricle is normal size and right ventricular systolic function is at the lower limits of normal. This is unchanged compared to the previous study. The right ventricular systolic pressure is estimated at 48 mmHg assuming a right atrial pressure of 3 mm Hg, and is likely significantly lower compared to the previous study. Both atria are normal in size and both atria have mildly decreased in size since the prior echo exam. There is moderate mitral regurgitation and moderate tricuspid regurgitation that appear less prominent compared to the previous study. There is mild aortic stenosis and mild aortic regurgitation that are unchanged compared to the previous study. The ascending aorta is at the upper limits of normal in size but is unchanged compared to the previous study. The patient was in probable sinus tachycardia with heart rates between 100- 120 bpm during the exam which is considerably faster compared to the previous study. . 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 acute, active #chronic LBBB, hx of 1st AVB, EKG showed new junctional bradycardia, IVCD, POA, precipitated by new BB-labetalol, hyperkalemia. Rhythm converted back to sinus on telemetry as hyperkalemia resolved -consulted with Cardiology 08/17, , tentative plan for biventricular pacer/ICD outpt -Continue Telemetry #Severe systolic dysfunction, significant dyssynchrony, POA, clinically euvolemic, stable respiratory status s/p [id number] 08/18 -HF regimen per Cardiology, currently hydralazine 25/ISDN 40tid, coreg 6.25 bid -restarted lasix 40po bid, aldactone, will monitor K,target >4, mg>2 #Episodes nausea, weakness, cough, likely in the setting of URI(RSV+),POA, initially patient thinks that was from side effect from hydralazine as it happened in the past, however, tolerated hydralazine well now, -zofran prn for n/v, monitor for now #HTN, 150-160s, resumed amlodipine, continue hydralazine/ISDN, diuretics, aggressive BP control given severe systolic dysfunction. #hyperkalemia, TANIA on CKD, POA, likely from dehydration given newly started aldactone, K replacement.held aldactone on admission, K stable now. -appreciate renal input. -cr further trending down, monitor for now, avoid renal toxin, renally adjust dose chronic, stable Hyperlipidemia, continue statin Moderate Mitral regurgitation and mod tricuspid regurgitation, not active Paroxysmal Atrial Fibrillation, monitor on telemetry dispo:expect 1-2days days, home diet:renal, cardiac dvt ppx:SCD Full code VTE Mechanical Devices: Intermittant Pneumatic CD Resuscitation Status: CPR: Attempt Resuscitation Time spent 35 minutes Abhijit Carpio MD Aug 19, 2016 12:06
--- NOTE | 2016-08-19 12:30 | NUR ---
Social Work: Readiness for d/c Data: Pt is on day 2 of hospitalization. EMR reviewed, pt discussed in rounds. MD states pt likely to d/c tomorrow. No d/c planning needs anticipated at this time. RESTAURANT INSPECTOR will continue to follow if needs arise. Assessment: Pt who is independent at baseline. Plan: Pt will d/c home via POV when medically stable, likely tomorrow. No d/c planning needs anticipated at this time. RESTAURANT INSPECTOR will continue to follow if needs arise. KATIE Manley
--- NOTE | 2016-08-19 16:03 | PCM.PNCARD ---
Subjective Date of service Aug 19, 2016 Chief Complaint CHF/Bradycardia History of Present Illness Over the night the patient has improved regards with her breathing. She still has some residual shortness of breath and is still not quite near her baseline. She is accompanied by her family. She has been started on oral furosemide today. Constitutional: Denies: Chills, Fever ENT: Denies: Ear Pain Eyes: Denies: Blurred Vision Cardiovascular: Reports: SOB on Exertion, Denies: Chest Pain, Irregular Heart Rate, SOB while laying flat Respiratory: Reports: Cough, SOB with Exertion Neurological: Reports: Confusion Exam Vital Signs Vital Sign - Last Date Time Temp Pulse Resp B/P Pulse Ox O2 Delivery O2 Flow Rate FiO2 08/19/16 14:33 81 16 147/72 93 Room Air 08/19/16 13:50 1.00 08/19/16 09:26 36.7 Intake and Output 08/18/16 08/18/16 08/19/16 Cumulative From/Thru 15:00 23:00 07:00 08/17/16 11:01 - 08/19/16 05:33 Intake Total 920 ml 2082 ml Output Total 700 ml 1200 ml Balance 220 ml 882 ml Intake Oral 920 ml 1356 ml IV Total 726 ml Output Urine Total 700 ml 1200 ml # Voids 1 # Bowel Movements 1 2 General: Pleasant Cooperative Neck: JVD present (decreased compared to yesterday) Chest: Clear auscultation & percussion Cardiac: Regular rhythm Pulses: Pulses full/equal all extremities Abdomen: Soft, non-distended, non-tender Neurological: Alert & oriented Psychological: Reduced memory Lab and Diagnostics Result Diagram: 08/19/1651908/19/16 0520 Assessment & Plan Problems: (1) Acute on chronic systolic (congestive) heart failure Plan: Patient symptoms seemed to be improving. Agree with nephrology of restarting her oral diuretics and see if she continues to improve from a congestive heart failure. Continue to monitor closely over the night and if she continues to improve she may be discharged from a cardiology perspective. Our EP electric car operator has discussed with her and apparently has agreed to proceed with MANAGER LAB-D OLAMIDE. Her heart rate continues to stay stable then one may consider increasing her carvedilol to 12.5 mg twice a day. Status: Acute ICD Code: I50.23 (2) Sinoatrial arrest with toni/ventricular escape Plan: Restarted low dose carvedilol and closely monitor her rhythm over the next 24 hours. Increase as tolerated. However, it appears the primary culprit for her bradycardia was secondary to hyperkalemia secondary to HF medications. She is a pretty good candidate for MANAGER LAB due to recent hospitalizations for CHF and this would help to prevent syncope due to malignant bradycardia. Status: Resolved ICD Code: I46.9 (3) HTN (hypertension) Qualifiers: Hypertension type: essential hypertension Hypertension goal: less than 130 /80 Qualified Code: I10 - Essential (primary) hypertension Plan: Given her severely reduced LVEF and valvular HD, she will need aggressive HTN control. Ideally, she should be on an ACEi or ARB but due to her CKDIV, this is not an option. She has been placed on Imdur and Hydralazine for afterload reducing effect but data shows more support for Isordil TID with Hydralazine TID instead of Imdur and Hydralazine. Today I have increase her Isordil to 40 mg 3 times a day. The other option is BiDil which is a combo tablet but unfortunately, this is much more expensive. Status: Acute ICD Code: I10 VTE Mechanical Devices: Intermittant Pneumatic CD Resuscitation Status: CPR: Attempt Resuscitation Time spent 20 minutes Ja Richter MD Aug 19, 2016 16:03
--- NOTE | 2016-08-19 18:24 | NUR ---
Ambulation/PRN Nebs Pt OOB and ambulated in halls with nurse. SPO2 stayed 91-93%, no reports of dizziness or SOB. Cardiac: Pt denies CP, Tele: SR 70s-80s. Resp: Pt denies SOB at rest. sp02 93% on RA. PRN nebs ordered. Pt reported benefit following first treatment. GI/: Pt denies n/v Neuro: a/ox3, bed alarm on, at bedside.
[2016-08-20] VITALS (10 sets, daily range): BP systolic 130–167; BP diastolic 52–75; PULSE 73–114; RESP 16–20; O2SAT 91–94
[2016-08-20 06:00] LABS: BASOPHILS % (AUTO) 0.8 % (0-3); EOSINOPHILS % (AUTO) 4.4 % (0-5); MONOCYTES % (AUTO) 15.6 % (4-12); Mean Corpuscular Hemoglobin 31.1 pg (27.0-35.0); Mean Corpuscular Volume 92.4 fL (81-100); NEUTROPHILS % (AUTO) 54.3 % (40-74); Platelet Count 154 bil/L (150-400)
[2016-08-20 06:21] LABS: Magnesium 1.8 mg/dL (1.6-2.6); Phosphorus 3.6 mg/dL (2.5-4.9)
[2016-08-20] MEDS: Isosorbide Dinitrate 40 mg ER24 Tablet PO SCH ×3 (07:48→20:37)
--- NOTE | 2016-08-20 08:57 | DRSVH ---
PROCEDURE: X-RAY CHEST ONE VIEW, PORTABLE ([id number]) INDICATIONS: CHF vs PNA follow up TECHNIQUE: One view of the chest was acquired. COMPARISON: [facility], CR, XR CHEST 1VW (PORTABLE), 08/18/2016, 14:18. FINDINGS: Surgical changes and devices: None. Lungs and pleura: No pleural effusions or pneumothorax. Lungs are clear. Granuloma in the right marla g is stable compared to prior examination. Mediastinum: Mediastinal contours appear normal. Heart size is normal. Bones and chest wall: No suspicious bony lesions. Overlying soft tissues appear unremarkable. IMPRESSION: No acute cardiopulmonary disease process. Dictated by: Radha Kelly MD, PhD on 08/20/2016 at 8:53 Approved by: Radha Kelly MD, PhD on 08/20/2016 at 8:55
--- NOTE | 2016-08-20 12:21 | PCM.PNMED ---
Subjective Date of Service Aug 20, 2016 Subjective Patient developed mild fever overnight Denied any associated symptoms Still having some cough, denied difficulty breathing, not much productive sputum Repeat x-ray showed persistent bibasilar obesity Exam Vital Signs Vital Sign - Last Date Time Temp Pulse Resp B/P Pulse Ox O2 Delivery O2 Flow Rate FiO2 08/20/16 09:28 37.3 114 16 146/75 93 Room Air 08/20/16 04:27 1.00 Intake and Output 08/19/16 08/19/16 08/20/16 Cumulative From/Thru 15:00 23:00 07:00 08/17/16 11:01 - 08/19/16 22:21 Intake Total 450 ml 937 ml 3469 ml Output Total 975 ml 550 ml 2725 ml Balance -525 ml 387 ml 744 ml Intake Oral 450 ml 937 ml 2743 ml IV Total 726 ml Output Urine Total 975 ml 550 ml 2725 ml # Voids 1 # Bowel Movements 0 2 Exam NAD, comfortably laying down on the bed no JVD, MMM, no LAD RRR, nl s1, s2 no mrg CTAB, bibasilar crackles S,ND,NT,normoactive BS+ warm, no edema, pulses 2/2 IVs and Medications Medications Reviewed: Medications were reviewed in detail Lab and Diagnostics Result Diagram: 08/20/16 0535 08/20/16 0535 Microbiology Urine eosinophils negative. Urine culture shows insufficient growth likely secondary to contamination. Repeat urinalysis revealed urine culture not indicated. Respiratory viral PCR was positive for RSV. . X-Rays, CTs and MRIs X-RAY CHEST ONE VIEW, PORTABLE IMPRESSION: CHF and/or pneumonia involving the lung bases. Dictated by: Albaro Olmedo RRA Interpreted: Andreas Rivera MD on 08/18/2016 at 15: 23 Transcribed by: SHANNON on 08/18/2016 at 15:24 X-RAY CHEST ONE VIEW, PORTABLE IMPRESSION: No acute cardiopulmonary disease process. Dictated by: Radha Kelly MD, PhD on 08/17/2016 at 11:43 Approved by: Radha Kelly MD, PhD on 08/17/2016 at 11:44 US ABDOMEN IMPRESSION: 1. Cholelithiasis. No ultrasound findings to suggest acute cholecystitis. 2. 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 3. Moderate left renal atrophy and a 1.4 cm cyst in the superior pole.. 4. Fusiform ectasia of distal abdominal aorta. There is aortic atherosclerosis. Dictated by: Sue Staples M.D. on 07/22/2016 at 18:58 Approved by: Sue Staples M.D. on 07/22/2016 at 18:58 . 12-lead ECG EKG: Sinus bradycardia, heart rate 41,LBBB. . Cardiac Echo Impressions Echocardiogram Interpretation Summary The left ventricle is normal in size but left ventricular systolic function is moderate to severely reduced with the ejection fraction visually estimated to be 25-30%, now with a significant dyssynchronous contraction pattern, consistent with a conduction abnormality and moderate to severe global hypokinesis that is worse in the septum and apex. This is much more pronounced compared to the previous study and compared to the prior exam, left ventricular function has significantly decreased. The right ventricle is normal size and right ventricular systolic function is at the lower limits of normal. This is unchanged compared to the previous study. The right ventricular systolic pressure is estimated at 48 mmHg assuming a right atrial pressure of 3 mm Hg, and is likely significantly lower compared to the previous study. Both atria are normal in size and both atria have mildly decreased in size since the prior echo exam. There is moderate mitral regurgitation and moderate tricuspid regurgitation that appear less prominent compared to the previous study. There is mild aortic stenosis and mild aortic regurgitation that are unchanged compared to the previous study. The ascending aorta is at the upper limits of normal in size but is unchanged compared to the previous study. The patient was in probable sinus tachycardia with heart rates between 100- 120 bpm during the exam which is considerably faster compared to the previous study. . 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 acute, active #new onset fever, developed 08/19, CXR may suggest bibasilar PNA post viral(RSV+ ) vs atelectasis, stable respiratory status, -trend fever curve, procalcitonin, low threshold to start abx -O2 supplement as needed -monitor respiratory sx closely #chronic LBBB, hx of 1st AVB, EKG showed new junctional bradycardia, IVCD, POA, precipitated by new BB-labetalol, hyperkalemia. Rhythm converted back to sinus on telemetry as hyperkalemia resolved -consulted with Cardiology 08/17, , tentative plan for biventricular pacer/ICD outpt with 09/10 per pt, please follow up with Cardiology daily basis. -Continue Telemetry #Severe systolic dysfunction, significant dyssynchrony, POA, clinically euvolemic, stable respiratory status s/p [id number] 08/18 -HF regimen per Cardiology, currently hydralazine 25/ISDN 40tid, coreg 6.25 bid increased to 12.5 bid -restarted lasix 40po bid, aldactone per card, will monitor K,target >4, mg>2 -please optimize HF regimen prior to d/c per Card. #Episodes nausea, weakness, cough, likely in the setting of URI(RSV+),POA, initially patient thinks that was from side effect from hydralazine as it happened in the past, however, tolerated hydralazine well now, -zofran prn for n/v, monitor for now #HTN, 150-160s, resumed amlodipine, continue hydralazine/ISDN, diuretics, aggressive BP control given severe systolic dysfunction. #hyperkalemia, TANIA on CKD, POA, likely from dehydration given newly started aldactone, K replacement.held aldactone on admission, K stable now. -appreciate renal input. -cr further trending down, monitor for now, avoid renal toxin, renally adjust dose chronic, stable Hyperlipidemia, continue statin Moderate Mitral regurgitation and mod tricuspid regurgitation, not active Paroxysmal Atrial Fibrillation, monitor on telemetry dispo:expect one more day given febrile episode, home no needs diet:renal, cardiac dvt ppx:SCD Full code VTE Mechanical Devices: Intermittant Pneumatic CD Resuscitation Status: CPR: Attempt Resuscitation Time spent 35 minutes Abhijit Carpio MD Aug 20, 2016 12:13
--- NOTE | 2016-08-20 12:31 | NUR ---
O2 needs Pt up to the bathroom on room air and sats are 90%, trial on RA for today and sats have been consistant in the low 90's-93. Pt said she doesn't wear O2 at home.
[2016-08-20] MEDS: Benzocaine (Hurricaine) 20% Unit-Dose Spray MUC_MEMBRM PRN (17:20)
[2016-08-21] VITALS (7 sets, daily range): BP systolic 128–146; BP diastolic 62–67; PULSE 63–89; RESP 16–20; O2SAT 85–93
[2016-08-21] MEDS: Isosorbide Dinitrate 40 mg ER24 Tablet PO SCH ×2 (08:21→14:30)
--- NOTE | 2016-08-21 08:45 | NUR ---
Telemetry Update: Sinus Rhythm Patient has been Afib 70-90s with an IVCD and occasional PVCs. At 07:54 patient converted to Sinus Rhythm in the 70-80s after a brief Junctional conversion in the 50s. SYLVIE pardo.
[2016-08-21] MEDS: Benzocaine (Hurricaine) 20% Unit-Dose Spray MUC_MEMBRM PRN (12:44)
--- NOTE | 2016-08-21 15:36 | PCM.DIMED ---
Abhijit Carpio MD 08/19/16 1757: Discharge Instructions Date of Service Aug 19, 2016 Dates of Hospitalization Aug 17, 2016 at 14:10 Discharge Diagnosis Discharge Diagnosis Junctional bradycardia in the setting of hyperkalemia TANIA on CKD, likely from dehydration given newly started aldactone, K replacement Diet Low fat, Low Sodium, Heart Healthy Patient Instructions You are hospitalized because of abnormally slow heart rhythm, likely related to your kidney damages and you were medicines he was started Please strictly follow medicine instruction as above Please continue to follow dietary instruction for congestive heart failure Follow-up plan Please follow-up with Dr. Jain cardiology Please follow-up with , Specialist for abnormal heart rhythms procedure scheduled for Follow-up Provider: Vipin Jain MD Follow-up with PCP in: 1 week Bárbara Jones DO 08/21/16 1536: Discharge Instructions Date of Service 08/21/16 Discharge Diagnosis Discharge Diagnosis RSV infection Activity Other (gradually increase activity as tolerated may resume normal daily activities) Call your provider Fever or Chills, Shortness of breath, Bleeding, Chest pain, Vomitting, Excessive diarrhea Abhijit Carpio MD Aug 19, 2016 17:57 Bárbara Jones DO Aug 21, 2016 15:36
[2016-08-21] MEDS ORDERED: BENZ100C8 PO ×2 (16:01→16:42)
--- NOTE | 2016-08-21 16:14 | NUR ---
Social Work-discharge: Data:EMR Reviewed. Pt is on day 4 of hospitalization for bradycardia per H&P. Pt is medically stable to discharge home today. Pt resides at home with her and daughter in [facility] who are here and will provide transport home. Per RN notes, pt has been up independent in her room. No discharge needs identified. All updated and agreeable to plan. Assessment:Pt who is independent at baseline. Plan:Pt to discharge home today via POV. No discharge needs identified. All updated and agreeable to plan. KATIE Hernández
--- NOTE | 2016-08-21 16:45 | NUR ---
Discharge nursing note: Patient was discharged to home at 1645. Patients IV was discontinued intact. All of patients discharge information was reviewed with her and her questions were answered to her satisfaction. Patient was brought in a wheelchair to the hospital lounge by nursing staff member and she was driven home by her daughter. Hospitalist printed script for patients cough med (Deborah Ennis) and the script was sent with patient at discharge.
--- NOTE | 2016-08-21 18:23 | PCM.DC.MED ---
Discharge Summary Date of Service Aug 21, 2016 Dates of Hospitalization Date of Hospital Admission Aug 17, 2016 at 14:10 Date of Discharge: Aug 21, 2016 Providers: Admitting Physician: Mikie Caro MD Primary Care Physician: Ghulam Mukherjee MD Attending Physician: Mikie Caro MD Diagnosis at Time of Discharge Diagnosis at Time of Discharge RSV infection Procedures XRay, CTs & MRIs X-RAY CHEST ONE VIEW, PORTABLE IMPRESSION: CHF and/or pneumonia involving the lung bases. Dictated by: Albaro Olmedo RRA Interpreted: Andreas Rivera MD on 08/18/2016 at 15: 23 Transcribed by: SHANNON on 08/18/2016 at 15:24 X-RAY CHEST ONE VIEW, PORTABLE IMPRESSION: No acute cardiopulmonary disease process. Dictated by: Radha Kelly MD, PhD on 08/17/2016 at 11:43 Approved by: Radha Kelly MD, PhD on 08/17/2016 at 11:44 US ABDOMEN IMPRESSION: 1. Cholelithiasis. No ultrasound findings to suggest acute cholecystitis. 2. 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 3. Moderate left renal atrophy and a 1.4 cm cyst in the superior pole.. 4. Fusiform ectasia of distal abdominal aorta. There is aortic atherosclerosis. Dictated by: Sue Staples M.D. on 07/22/2016 at 18:58 Approved by: Sue Staples M.D. on 07/22/2016 at 18:58 . ECG 12 Lead EKG: Sinus bradycardia, heart rate 41,LBBB. . Cardiac Echo Impression Echocardiogram Interpretation Summary The left ventricle is normal in size but left ventricular systolic function is moderate to severely reduced with the ejection fraction visually estimated to be 25-30%, now with a significant dyssynchronous contraction pattern, consistent with a conduction abnormality and moderate to severe global hypokinesis that is worse in the septum and apex. This is much more pronounced compared to the previous study and compared to the prior exam, left ventricular function has significantly decreased. The right ventricle is normal size and right ventricular systolic function is at the lower limits of normal. This is unchanged compared to the previous study. The right ventricular systolic pressure is estimated at 48 mmHg assuming a right atrial pressure of 3 mm Hg, and is likely significantly lower compared to the previous study. Both atria are normal in size and both atria have mildly decreased in size since the prior echo exam. There is moderate mitral regurgitation and moderate tricuspid regurgitation that appear less prominent compared to the previous study. There is mild aortic stenosis and mild aortic regurgitation that are unchanged compared to the previous study. The ascending aorta is at the upper limits of normal in size but is unchanged compared to the previous study. The patient was in probable sinus tachycardia with heart rates between 100- 120 bpm during the exam which is considerably faster compared to the previous study. . Brief History Over the night the patient has improved regards with her breathing. She still has some residual shortness of breath and is still not quite near her baseline. She is accompanied by her family. She has been started on oral furosemide today. 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 Patient was found to have an RSV infection. Patient was treated with supportive care and supplemental oxygen. The patient responded well to supportive care and was weaned from oxygen today. The patient was also diagnosed with hyperkalemia and acute on chronic kidney injury most likely secondary to the dehydration. Patient's Aldactone was stopped and potassium was repleted. Patient responded well and her creatinine was trending down upon discharge. Exam Vital Signs (Last) Date Time Temp Pulse Resp B/P Pulse Ox O2 Delivery O2 Flow Rate FiO2 08/21/16 16:02 Supplement Oxygen 08/21/16 13:52 36.6 67 20 138/67 93 2.00 Test 08/17/16 11:10 08/17/16 17:15 08/17/16 17:21 08/18/16 10:45 Prothrombin Time 9.9sec (8.1-12.5) Prothromb Time International Ratio 0.93ratio Hemoglobin A1c 5.3% (4.8-5.6) Troponin T 0.021ug/L (0.0-0.011) Hold Brown Top Tube Received (Received) Lactic Acid Level 1.2mmol/L (0.4-2.0) Urine Random Creatinine 117mg/dL (15-278) Urine Random Sodium 22mEq/L Urine Color Straw (YELLOW) Urine Appearance Clear (CLEAR,HAZY) Urine pH 7.5 (5.0-8.0) Urine Specific [place] 1.020 (1.003-1.035) Urine Protein 100mg/dL (NEG,TRACE) Urine Glucose (UA) Negativemg/dL (NEGATIVE) Urine Ketones Negativemg/dL (NEGATIVE) Urine Occult Blood Trace (NEGATIVE) Urine Nitrite Negative (NEGATIVE) Urine Bilirubin Negative (NEGATIVE) Urine Urobilinogen Normalmg/dL (NORMAL) Urine Leukocyte Esterase Negative (NEGATIVE) Urine RBC 3-10/hpf (0-2) Urine WBC 0-5/hpf (0-5) Urine Epithelial Cells Occasional/hpf (NONE-MOD) Urine Crystals None seen (NONE SEEN) Urine Bacteria Few/hpf (NONE-FEW) Urine Hyaline Casts None/lpf (NONE) Urine Granular Casts None seen (NONE SEEN) Urine Waxy Casts None seen (NONE SEEN) Urine Red Blood Cell Casts None seen (NONE SEEN) Urine White Blood Cell Casts None seen (NONE SEEN) Urine Mucus None seen (None Seen) Urine Trichomonas None seen (NONE SEEN) Urine Yeast None (NONE SEEN) Urinalysis Comment None Urine Culture Reflexed Not indicated Hold Urine Received (Received) Test 08/20/16 05:35 White Blood Count 4.7th/mm3 (3.8-10.1) Red Blood Count 3.95mil/mm3 (3.90-5.20) Hemoglobin 12.3g/dL (12.0-15.6) Hematocrit 36.5% (35.0-46.0) Mean Corpuscular Volume 92.4fL (81-100) Mean Corpuscular Hemoglobin 31.1pg (27.0-35.0) Mean Corpuscular Hemoglobin Concent 33.7% (32.0-37.0) Red Cell Distribution Width 13.0% (12.3-15.4) Platelet Count 154bil/L (150-400) Neutrophils (%) (Auto) 54.3% (40-74) Lymphocytes (%) (Auto) 24.3% (14-46) Monocytes (%) (Auto) 15.6% (4-12) Eosinophils (%) (Auto) 4.4% (0-5) Basophils (%) (Auto) 0.8% (0-3) Sodium Level 136mEq/L (134-144) Potassium Level 3.6mEq/L (3.5-5.2) Chloride Level 99mEq/L (97-108) Carbon Dioxide Level 20mmol/L (18-29) Blood Urea Nitrogen 43mg/dL (8-27) Creatinine 2.62mg/dL (0.57-1.00) Estimat Glomerular Filtration Rate 25mL/min (>59) Glucose Level 109mg/dL (60-99) Calcium Level 9.7mg/dL (8.5-10.1) Phosphorus Level 3.6mg/dL (2.5-4.9) Magnesium Level 1.8mg/dL (1.6-2.6) Total Bilirubin 1.0mg/dL (0.0-1.2) Aspartate Amino Transf (AST/SGOT) 27U/L (0-50) Alanine Aminotransferase (ALT/SGPT) 18U/L (0-32) Alkaline Phosphatase 92U/L (25-165) Total Protein 6.9g/dL (6.4-8.4) Albumin 4.1g/dL (3.4-5.0) Procalcitonin 0.24ng/mL (See Comment) Microbiology Results Urine eosinophils negative. Urine culture shows insufficient growth likely secondary to contamination. Repeat urinalysis revealed urine culture not indicated. Respiratory viral PCR was positive for RSV. . Discharge Medications Discharge Medications Amlodipine (Amlodipine) 10 Mg Tablet 10 MG PO BID (Reported) Aspirin Chew (Aspirin Chew) 81 Mg Chew 81 MG PO HS (Reported) Atorvastatin (Lipitor) 80 Mg Tablet 80 MG PO HS (Reported) Cholecalciferol (Vitamin D3) (Vitamin D3) 1,000 Unit Tab.chew 1,000 UNIT PO HS ( Reported) Cranberry Conc/C/Bacill Coag (Cranberry Tablet) 1 Each Tablet 1 EACH PO BID ( Reported) Furosemide (Furosemide) 40 Mg Tablet 40 MG PO QAM (Reported) Hydralazine (Hydralazine) 100 Mg Tablet 100 MG PO TID Prescribed by: BEATA CROSS DO Isosorbide MN ER (Isosorbide MN ER) 60 Mg Tab.er.24h 60 MG PO QAM (Reported) Labetalol (Labetalol) 200 Mg Tablet 200 MG PO BID Prescribed by: BEATA CROSS DO Magnesium Oxide (Magnesium) 500 Mg Capsule 500 MG PO BID (Reported) Multivits-Min/Iron/FA/Lutein (Centrum Silver Women Tablet) 8 Mg Iron-400 Mcg- 300 Mcg Tablet 1 EACH PO QAM (Reported) Potassium Chloride (Potassium Chloride) 10 Meq Tab.er.prt 10 MEQ PO QAM ( Reported) TAKE WITH FOOD Ranitidine (Ranitidine) 150 Mg Capsule 150 MG PO HS (Reported) Spironolactone (Spironolactone) 25 Mg Tablet 12.5 MG PO DAILY (Reported) As needed Benzonatate (Benzonatate) 100 Mg Capsule 100 MG PO TID PRN PRN For Cough Prescribed by: ROLA RALPH DO Epinephrine (Epipen 2-David) 0.3 Mg/0.3 Ml Auto.injct 1 DOSE INJ prn PRN PRN For Anaphyllaxis (Reported) Nitroglycerin SL (Nitrostat) 0.4 Mg Tab.subl 0.4 MG SL Q5MIN PRN PRN For Chest Pain Prescribed by: SOHA BLANTON MD Followup Plan Follow-up plan Please follow-up with Dr. Jain cardiology Please follow-up with , Specialist for abnormal heart rhythms procedure scheduled for Follow-up Provider: Vipin Jain MD Follow-up with PCP in: 1 week Discharge Diet: Heart Healthy Discharge Activity: Other (gradually increase activity as tolerated may resume normal daily activities) Follow-up Provider: Vipin Jain MD Follow-up with PCP in: 1 week Provider: Jerson Pena MD copies to: Jerson Pena MD; Ghulam Mukherjee MD; Vipin Jain MD, Precious L DO Aug 21, 2016 18:23
== END 2016-08-21 16:53 | disposition home or self-care (01) | DRG 308 ==
LOC: SED 10:50 → MPC 14:10
PROVIDERS: ADMIT Hospitalist; ATTEND Internal Medicine
DX: I49.8 Other specified cardiac arrhythmias (principal); I50.23 Acute on chronic systolic (congestive) heart failure; I13.0 Hypertensive heart and chronic kidney disease with heart failure and stage 1 through stage 4 chronic kidney disease, or unspecified chronic kidney disease; N17.9 Acute kidney failure, unspecified; I50.32 Chronic diastolic (congestive) heart failure; E87.2 Acidosis; N18.4 Chronic kidney disease, stage 4 (severe); I44.0 Atrioventricular block, first degree; B97.4 Respiratory syncytial virus as the cause of diseases classified elsewhere; E87.5 Hyperkalemia; E78.5 Hyperlipidemia, unspecified; D63.1 Anemia in chronic kidney disease; I48.0 Paroxysmal atrial fibrillation; Z87.891 Personal history of nicotine dependence

== ENCOUNTER 2016-09-10 00:07 | Day surgery (SDC) | payer MEDICARE, OTHER ==
[2016-09-10] VITALS (13 sets, daily range): BP systolic 139–162; BP diastolic 40–78; PULSE 57–71; RESP 16–20; O2SAT 92–96
[~2016-09-10] VITALS: Ht 152.4 cm; Wt 54.5 kg
[~2016-09-10 00:07] MED LIST changes: +BENZ100C8 PO; +EPIN0.3P2 INJ; -FERR324T2 PO
[2016-09-10] MEDS: 0.9% Sodium Chloride 1,000 ML IV SCH ×3 (06:20→16:33)
[2016-09-10] MEDS ORDERED: Vancomycin Inj 1,000 MG in IV Premix 1 EACH IV ONE (07:00)
[2016-09-10 07:33] LABS: BASOPHILS % (AUTO) 0.7 % (0-3); MONOCYTES % (AUTO) 8.8 % (4-12); Mean Corpuscular Hemoglobin 30.8 pg (27.0-35.0); Mean Corpuscular Volume 94.9 fL (81-100); NEUTROPHILS % (AUTO) 49.9 % (40-74); Platelet Count 156 bil/L (150-400)
[2016-09-10 07:43] LABS: INR 0.94 ratio
[2016-09-10] MEDS ORDERED: CRAN300T PO (07:45)
[2016-09-10] MEDS ORDERED: HYDR-3939 PO (07:47)
[2016-09-10] MEDS ORDERED: 0.9% Sodium Chloride 250 ML ONE (09:03)
[2016-09-10] MEDS ORDERED: Heparin 5,000 Units/500 mL NS Premix IV ONE ×2 (09:03→10:46)
[2016-09-10] MEDS ORDERED: Bupivacaine-MPF 0.5% 30 mL Inj ONE (09:03)
[2016-09-10] MEDS ORDERED: Vancomycin 1,000 mg Inj ONE (09:36)
[2016-09-10] MEDS ORDERED: fentaNYL-PF 50 mCg/mL 2 mL Inj ONE (09:37)
[2016-09-10] MEDS ORDERED: Ondansetron 2 mg/mL 2 mL Inj IVPUSH PRN (12:15)
[2016-09-10] MEDS ORDERED: HYDROcodone-APAP 5-325 mg Tablet PO PRN (12:15)
--- NOTE | 2016-09-10 13:18 | PROG NOTE ---
[address] [address] PROGRESS NOTE PATIENT: WILLIE ACOSTA : 1935 MR#: [id number] ADMIT: 09/10/2016 JOB ID: [id number] DATE: 09/10/2016 IDENTIFICATION: The patient is a pleasant 80-year-old woman with severe dilated cardiomyopathy, most recent ejection fraction 25% to 30%, left bundle branch block with wide QRS duration, and advanced heart failure symptomology, who has had multiple admissions in the last few months for heart failure and pneumonia. She was brought to my attention both by her outpatient scaffold builder Dr. Vipin Jain as well as when she was admitted to the hospital several weeks ago. She has severe exertional dyspnea and fatigue and when she was admitted last time in renal failure she was profoundly bradycardic with a heart rate in the high 30s to low 40s. At that time she had sinus arrest and was in an escape rhythm. She was treated for pneumonia and further medical management was undertaken for her heart failure. She is here to discuss device therapy both for primary prevention of sudden cardiac arrest and cardiac resynchronization therapy in addition to addressing her profound bradycardia. She is able to get around a little bit better at home but still gets dyspneic with minimal exertion. She denies any chest pain, pressure, or discomfort. Ischemic evaluation in the past has been unremarkable. IMPRESSION AND RECOMMENDATION: The patient is a pleasant 80-year-old woman with severe nonischemic cardiomyopathy. Ejection fraction 25% to 30%. Wide left bundle branch block with QRS duration 154 msec. Sinus bradycardia with a period of sinus arrest and an escape rhythm in the 30s and 40s. She has advanced heart failure symptomology. I recommended biventricular ICD implantation for primary prevention of sudden cardiac arrest and for cardiac resynchronization therapy. We spent a lengthy amount of time discussing pacing versus ICD therapy. Her goal and wish is for resuscitation. Ultimately after this lengthy discussion she opted for Bi-V ICD implantation. PLAN: Biventricular ICD implantation. Thank you very much for allowing me to assist in the care of the patient. Please call with any questions. I spent 1 hour with this patient coordinating her care and reviewing her chart. Greater than 50% of this time was spent in counseling.
--- NOTE | 2016-09-10 13:25 | DRSVH ---
PROCEDURE: X-RAY CHEST ONE VIEW, PORTABLE ([id number]) INDICATIONS: For new leads placed TECHNIQUE: One view of the chest was acquired. COMPARISON: [facility], CR, XR CHEST 1VW (PORTABLE), 08/20/2016, 8:36. FINDINGS: Surgical changes and devices: Cardiac AICD. Lungs and pleura: No pleural effusions or pneumothorax. Grossly stable bilateral groundglass opaciti es probably atelectasis/interstitial changes. Possible increase in retrocardiac streaky opacities. Mediastinum: Mediastinal contours appear normal. Heart size is normal. Bones and chest wall: No suspicious bony lesions. Overlying soft tissues appear unremarkable. IMPRESSION: Mild streaky retrocardiac opacities appear mildly progressed raising possibility of low-grade aspirat ion/atelectasis. Please correlate clinically. No pneumothorax. Dictated by: Feng Yan M.D. on 09/10/2016 at 13:21 Approved by: Feng Yan M.D. on 09/10/2016 at 13:24
--- NOTE | 2016-09-10 13:29 | OP ---
[address] [address] OPERATIVE REPORT PATIENT: WILLIE ACOSTA : 1935 MR#: [id number] ADMIT: 09/10/2016 JOB ID: [id number] DATE OF SURGERY: 09/10/2016 PREOPERATIVE DIAGNOSIS(ES): 1. 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 2. Left bundle branch block with QRS duration 154 msec. 3. [place] Heart [employer] class III heart failure symptomology. 4. Sick sinus syndrome. POSTOPERATIVE DIAGNOSIS(ES): 1. 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 2. Left bundle branch block with QRS duration 154 msec. 3. [place] Heart Association class III heart failure symptomology. 4. Sick sinus syndrome. PROCEDURES PERFORMED: 1. Biventricular implantable cardioverter defibrillator implantation with placement of a multilead implantable cardioverter defibrillator generator, right ventricular implantable cardioverter defibrillator lead, right atrial lead and coronary sinus left ventricular lead. 2. Coronary sinus venogram. 3. Fluoroscopy. SURGEON: Jerson Pena MD, electrophysiology attending. [place] TECHNICIAN: Chris Farah. IMPLANTED DEVICES: 1. [employer] pulse generator model [id number], serial #[id number]. 2. Right atrial lead [employer] 2089TC, 52 cm, serial #[id number]. 3. RV lead [employer] 7122Q, 58 cm, serial #[id number]. 4. RV lead [employer] 1458Q, 86 cm, serial #[id number]. ANESTHESIA: Bolus dosing of Versed and fentanyl were utilized for appropriate level of conscious sedation. INDICATION: The patient is a pleasant 80-year-old woman with advanced heart failure symptomology, severe dilated cardiomyopathy, left bundle branch block and sick sinus syndrome. After discussion of risks and benefits of BiV ICD implantation, she opted to proceed. PROCEDURAL DESCRIPTION: Following informed signed consent, the patient was taken to the EP laboratory in a fasting, nonsedated state, where she was prepped and draped in the usual sterile fashion. The left infraclavicular region was infiltrated with 40 cc of a 50/50 mixture of bupivacaine and lidocaine. Once adequate anesthesia had been achieved, a 3 cm transverse incision was performed 2 cm below the left clavicle. Dissection was carried down to the pectoralis fascia. A pocket was then fashioned using combination of electrocautery and blunt dissection. Once adequate hemostasis had been achieved, access to the left axillary vein was gotten with a micropuncture needle three times to deploy three 0.035, 3 mm J-guidewires. Over the first of these, a 7-Serbian tearaway sheath was advanced. Once the guidewire ws removed, an active fixation lead was advanced to the RV outflow tract and ultimately the RV apex. The lead was affixed in position using associated active fixation screw. It was connected the external analyzer and demonstrated appropriately sensed R waves, impedance, capture threshold. Lead was checked to 10 V, and there is no evidence of diaphragmatic stimulation. Attention was now paid to placement of the coronary sinus lead. Over another of the previously deployed J-guidewires, a 9-Serbian tearaway sheath was advanced. Once the guidewire was removed, a CS delivery sheath from [employer] was brought to the field and advanced over a Super CS decapolar catheter into the coronary sinus. A coronary sinus venogram was performed both with hand injection and with balloon occlusion, delineating a posterolateral branch with a stenosed ostium and a very early takeoff with an acute angle, as well as a bailout branch, i.e. middle cardiac vein. No other suitable branches were identified. Extensive time and effort were taken to engage the posterolateral branch with multiple wires and maneuvers. Ultimately, this endeavor was abandoned. Instead, the middle cardiac vein was addressed. A quadripolar CS lead was advanced into the middle cardiac vein as distal as possible over a Whisper wire. The lead was connected to the external analyzer and demonstrated appropriately sensed R waves, impedance, capture threshold. Lead was checked with 10 V, and there is no evidence of diaphragmatic stimulation. The Whisper wire was then pulled back and in its place was placed a finishing stylet. The 9-Serbian short sheath was slit loose. The long sheath was maintained for stability while the right atrial lead was addressed. Right atrial lead was addressed next. Over the last of the previously deployed J-guidewires, a 6-Serbian tearaway sheath was advanced. Once the guidewire was removed, an active fixation lead was advanced to the right atrium. Extensive mapping was undertaken in the appendage. Ultimately, a position in the lateral right atrium was found with adequate sensing and threshold. The lead was affixed in position using associated active fixation screw. It was connected to external analyzer and demonstrated appropriately sensed P waves, impedance, capture threshold. The lead was checked to 10 V, and there was no evidence of diaphragmatic stimulation. Finally, the long sheath was slit loose, maintaining the position of the coronary sinus lead. The coronary sinus lead did have to be repositioned and advanced forward due to loss of slack. Ultimately, once the position and redundancy of all three leads had been confirmed in multiple fluoroscopic views, these leads were anchored to the prepectoralis fascia using their associated anchoring sleeves and 2-0 Ethibond sutures. The pocket was then copiously with antibiotic solution. The leads were connected to a generator. The generator was placed in the pocket. It was affixed to the floor of the pocket using 1-0 Ti-Cron suture. The incision was then closed with running layers of absorbable suture. The wound was dressed with skin adhesive and a small dressing. At the end of the procedure, the needle, sponge and instrument counts were all correct. COMPLICATIONS: None. ESTIMATED BLOOD LOSS: 20 cc. DEVICE MEASURED DATA: 1. Right atrial lead 3.2 mV, 340 ohms, 0.75 V at 0.5 msec. 2. RV lead 7.4 mV, 360 ohms, 0.5 V at 0.5 msec. 3. LV lead 580 ohms, 1.5 V at 0.5 msec (D1 to RV coil). FINAL PROGRAM PARAMETERS: 1. DDD 60-130 beats per minute. 2. VF zone at 187 beats per minute. ATP during charge, followed by shocks. 3. VT2 zone at 171 beats per minute. ATP followed by shocks. 4. VT monitor zone at 150 beats per minute. IMPRESSION: Successful biventricular implantable cardioverter defibrillator implantation. PLAN: 1. Stat portable chest x-ray. 2. PA and lateral chest x-ray in morning. 3. Device interrogation in the morning. 4. IV vancomycin through tomorrow. 5. Doxycycline 100 p.o. daily x7 days. 6. Wound check in one week. ATTENDING STATEMENT: Jerson Pena MD, electrophysiology attending, was present for and supervised/performed all aspects of this procedure.
--- NOTE | 2016-09-10 13:49 | NUR ---
Received/care assumed Pt. admitted by Chilo Olivera RN. Care assumed when received from laborer carpentry dock about 1230. VSS. Denies pain. Dressing c/d/i. 100% V paced. Taking po well. Voided per bedpan. CXR and EKG done. Ice pack on. Family at bedside. Monitor per orders.
--- NOTE | 2016-09-10 14:50 | NUR ---
transfer pt transferred from [facility]. denies pain or distress. requests a glass of water. antibiotics due, will hang OLAMIDE
--- NOTE | 2016-09-10 15:17 | NUR ---
pt refusing arm sling. pt states that she is aware she is not to move her arm and states that she won't. This RN will monitor and determine if the pt is not moving her arm.
--- NOTE | 2016-09-10 22:12 | NUR ---
Arm Sling on patient at shift start and aware she needs to keep on for 24H.
[2016-09-11 00:51] VITALS: BP 130/52; PULSE 60; RESP 18; O2SAT 94
[2016-09-11] MEDS: 0.9% Sodium Chloride 1,000 ML IV SCH ×2 (01:07→01:39)
[2016-09-11 03:56] VITALS: BP 153/64; PULSE 63; RESP 18; O2SAT 94
[2016-09-11] MEDS ORDERED: Isosorbide Mononitrate 60 mg ER24 Tablet PO SCH (07:30)
[2016-09-11 07:57] VITALS: BP 147/62; PULSE 64; RESP 16; O2SAT 93
[2016-09-11] MEDS ORDERED: Multivit-Miner-Folic Acid-Iron Tablet PO SCH (08:30)
--- NOTE | 2016-09-11 08:55 | PCM.DIMED ---
Discharge Instructions Date of Service Sep 11, 2016 Dates of Hospitalization 09/10/2016 Discharge Diagnosis Discharge Diagnosis Nonischemic cardiomyopathy,left bundle branch block, Sick sinus syndrome, s/p biventricular ICD placement on 09/10/2016 Medication Instructions I started you on Doxycycline 100 mg one tablet daily which you need to take for one week. Please continue other your home medications without change. Diet Low fat, Low Sodium, Heart Healthy, Other (please see below) Call your provider Fever or Chills, Shortness of breath, Bleeding, Chest pain Patient Instructions You have and appointment scheduled at [facility]iology for device check on 09/17 at 1:45 pm. Please arrive 15 minutes earlier. Please do not drive a car for one week. No shower for one week, please keep the incision area dry, you can have a sponge bath. Do not carry anything in your left hand for one week and after that do not carry anything heavier than 2 -3 lb for one month. Do not light your arm higher than your shoulder for one six weeks. Do not lean on your left arm. If you have pain in incision area, you can take Tylenol. Do not take Ibuprofen because it can affect your kidney. Additional Information Please check BMP in one week Miky Wick PA-C Sep 11, 2016 08:55
--- NOTE | 2016-09-11 09:00 | DRSVH ---
PROCEDURE: X-RAY CHEST, TWO VIEWS ([id number]) INDICATIONS: For new lead placement TECHNIQUE: 2 views of the chest were acquired. COMPARISON: [facility], CR, XR CHEST 1VW (PORTABLE), 08/20/2016, 8:36. [facility], CR, XR CHEST 1VW (PORTABLE), 09/10/2016, 12:39. FINDINGS: Surgical changes and devices: The pacemaker is noted. Lead positions are unchanged. Lungs and pleura: No pleural effusions or pneumothorax. Right lower lobe calcified granuloma is pres ent. Less prominent appearance of previous groundglass like opacities as well as retrocardiac opacity . Mediastinum: Mediastinal contours are normal. Heart size is normal. Bones and chest wall: No suspicious bony abnormalities. Soft tissues appear unremarkable. IMPRESSION: Less prominent appearance of previous identified pulmonary opacities. Dictated by: Zuleyma Diaz M.D. on 09/11/2016 at 8:57 Approved by: Zuleyma Diaz M.D. on 09/11/2016 at 8:57
[2016-09-11] MEDS ORDERED: DOXY100C2 PO ×2 (09:11→10:01)
[2016-09-11 09:17] VITALS: PULSE 60
--- NOTE | 2016-09-11 10:03 | PCM.DC.CAR ---
Discharge Summary Date of Service Sep 11, 2016 Date of Hospital Admission 09/10/2016 Date of Discharge: Sep 11, 2016 Providers: Admitting Physician: Primary Care Physician: Ghulam Mukherjee MD Attending Physician: Jerson Pena MD Diagnosis at Time of Discharge Nonischemic cardiomyopathy,left bundle branch block, Sick sinus syndrome, s/p biventricular ICD placement on 09/10/2016, CKD, chronic anemia Problems: Invasive Procedures: IMPLANTED DEVICES: 1. [employer] pulse generator model [id number], serial #[id number]. 2. Right atrial lead [employer] 2089TC, 52 cm, serial #[id number]. 3. RV lead [employer] 7122Q, 58 cm, serial #[id number]. 4. RV lead [employer] 1458Q, 86 cm, serial #[id number]. Brief History and Physical: This is a very pleasant 80-year-old lady with severe dilated nonischemic cardiomyopathy (LVEF25%-30%), [place] Heart Association class III heart failure symptomology, left bundle branch block, Sick sinus syndrome, CKD who had scheduled Biventricular implantable cardioverter defibrillator implantation done on 09/10/2016. Hospital Course: The patient tolerated procedure well. Pacemaker pocket area is bruised some; there is no hematoma, no bleeding, and it is nontender with palpation. Pacemaker interrogated today and it functions properly. Chest x-ray did not show any pneumothorax. Her kidney function is table and actually improved a little. The patient is feeling well, denies having any chest pain/pressure, or SOB; denies orthopnea or pnd; does not look hypervolemic. On telemetry ventricular paced rhythm with HR 60 bpm. I explained the patient and her that she needs to take doxycycline 100 mg one capsule daily for one week only. Continue other home meds as usual. I also explained her that she needs to do BMP in one week. I advised the patient that if she has pain in incision area, to take Tylenol; I advised her not to take Ibuprofen which can affect her CKD. She already has an appointment scheduled in device clinic on 09/17/2016. Discharge Medications Amlodipine (Amlodipine) 10 Mg Tablet 10 MG PO BID Aspirin Chew (Aspirin Chew) 81 Mg Chew 81 MG PO HS Atorvastatin (Lipitor) 80 Mg Tablet 80 MG PO HS Cholecalciferol (Vitamin D3) (Vitamin D3) 1,000 Unit Tab.chew 1,000 UNIT PO HS Cranberry Extract (Cranberry) 300 Mg Tablet 300 MG PO BID Doxycycline Hyclate (Doxycycline Hyclate) 100 Mg Capsule 100 MG PO DAILY Furosemide (Furosemide) 40 Mg Tablet 40 MG PO QAM Hydralazine (Hydralazine) 25 Mg Tablet 100 MG PO TID Isosorbide MN ER (Isosorbide MN ER) 60 Mg Tab.er.24h 60 MG PO QAM Labetalol (Labetalol) 200 Mg Tablet 200 MG PO BID Magnesium Oxide (Magnesium) 500 Mg Capsule 500 MG PO BID Multivits-Min/Iron/FA/Lutein (Centrum Silver Women Tablet) 8 Mg Iron-400 Mcg- 300 Mcg Tablet 1 EACH PO QAM Potassium Chloride (Potassium Chloride) 10 Meq Tab.er.prt 10 MEQ PO QAM TAKE WITH FOOD Ranitidine (Ranitidine) 150 Mg Capsule 150 MG PO HS As needed Epinephrine (Epipen 2-David) 0.3 Mg/0.3 Ml Auto.injct 1 DOSE INJ prn PRN PRN For Anaphyllaxis Nitroglycerin SL (Nitrostat) 0.4 Mg Tab.subl 0.4 MG SL Q5MIN PRN PRN For Chest Pain Additional med instructions I started you on Doxycycline 100 mg one tablet daily which you need to take for one week. Please continue other your home medications without change. Followup Plan Patient Instructions You have and appointment scheduled at [facility]iology for device check on 09/17 at 1:45 pm. Please arrive 15 minutes earlier. Please do not drive a car for one week. No shower for one week, please keep the incision area dry, you can have a sponge bath. Do not carry anything in your left hand for one week and after that do not carry anything heavier than 2 -3 lb for one month. Do not light your arm higher than your shoulder for one six weeks. Do not lean on your left arm. If you have pain in incision area, you can take Tylenol. Do not take Ibuprofen because it can affect your kidney. Miky Wick PA-C Sep 11, 2016 10:03
--- NOTE | 2016-09-11 11:00 | NUR ---
Discharge Patient given discharge orders. Patient given medication list with written and verbal instructions when next dose is due. Patient was given informational packets. Patient given follow up information. Patient IVX2 removed fully intact and asymptomatic. Patient in room at time of discharge. Patient assessed by wheelchair to main door by CONCRETE BUCKET UNLOADER for discharge. Patient left with all personal belongings.
== END 2016-09-11 10:57 | disposition home or self-care (01) ==
LOC: SOUO 00:07 → MPC 15:58 → SOUO 09-11 10:57
PROVIDERS: ATTEND Internal Medicine Cardiovascular Disease
DX: I42.0 Dilated cardiomyopathy (principal); Z00.6 Encounter for examination for normal comparison and control in clinical research program; I44.7 Left bundle-branch block, unspecified; I49.5 Sick sinus syndrome; I48.0 Paroxysmal atrial fibrillation; I08.1 Rheumatic disorders of both mitral and tricuspid valves; N18.9 Chronic kidney disease, unspecified; I27.2 Other secondary pulmonary hypertension; Z79.82 Long term (current) use of aspirin; Z87.891 Personal history of nicotine dependence; I13.10 Hypertensive heart and chronic kidney disease without heart failure, with stage 1 through stage 4 chronic kidney disease, or unspecified chronic kidney disease; I44.0 Atrioventricular block, first degree; E78.5 Hyperlipidemia, unspecified
CPT/HCPCS: 33225; 33249; 36415; 71010; 71020; 80048; 85025; 85610; 93005; 99152; 99153; C1725; C1769; C1777; C1882; C1892; C1898; C1900; J1644; J2250; J3010; J3370; J7030; J7050; Q9967

== ENCOUNTER 2016-10-06 08:39 | Inpatient (IN) | payer MEDICARE, OTHER ==
[2016-10-06] VITALS (10 sets, daily range): BP systolic 124–158; BP diastolic 14–65; PULSE 60–74; RESP 15–22; O2SAT 92–98
[~2016-10-06] VITALS: Ht 152.4 cm; Wt 56.9 kg
[~2016-10-06 08:39] MED LIST changes: -BENZ100C8 PO; -CRAN1TAB5 PO; +CRAN300T PO; +DOXY100C2 PO; +HYDR-3939 PO; -HYDR100T27 PO; -SPIR25TA3 PO
--- NOTE | 2016-10-06 09:28 | ED.REPORT ---
HPI-Dyspnea / Wheezing Date of Service Oct 06, 2016 ED Provider: Neal Jesus MD This is an 80 year old female with a history of CHF, non-ischemic cardiomyopathy , atrial fibrillation, renal insufficiency, hyperlipidemia, and hypertension presenting to the emergency department via EMS due to shortness of breath that began 2 hours ago. Pt states she was in the kitchen when she suddenly became dyspneic, spouse states she was gasping for air. SpO2 measured at that time was 96%. Associated symptoms include productive cough that began one month ago. Denies positional character. Denies chest pain, lower extremity swelling, fever , rhinorrhea, chills, nausea, vomiting, or abdominal pain. Most recent hospitalization on 09/10-09/11, had pacemaker placement at that time with LVEF 25%-35%, prior admission for junctional bradycardia from 08/17-08/19. Nursing Notes Stated Complaint: SHORTNESS OF BREATH Chief Complaint: Respiratory Distress Nursing Notes Reviewed: Yes Allergies: Coded Allergies: Yellow Jacket (Verified Allergy, Severe, Anaphylaxis, 10/06/16) Sulfa (Sulfonamide Antibiotics) (Verified Allergy, Unknown, KIDNEY PROBLEMS, 10/06/16) Scheduled Amlodipine (Amlodipine) 10 Mg Tablet 10 MG PO BID Aspirin Chew (Aspirin Chew) 81 Mg Chew 81 MG PO HS Atorvastatin (Lipitor) 80 Mg Tablet 80 MG PO HS Cholecalciferol (Vitamin D3) (Vitamin D3) 1,000 Unit Tab.chew 1,000 UNIT PO noon Cranberry Extract (Cranberry) 300 Mg Tablet 300 MG PO BID Furosemide (Furosemide) 20 Mg Tab 20 MG PO DAILY Hydralazine (Hydralazine) 25 Mg Tablet 75 MG PO 5am, noon Hydralazine (Hydralazine) 25 Mg Tablet 50 MG PO 4pm,6pm,8pm Isosorbide MN ER (Isosorbide MN ER) 60 Mg Tab.er.24h 60 MG PO QAM Labetalol (Labetalol) 100 Mg Tablet 200 MG PO BID Magnesium Oxide (Magnesium) 500 Mg Capsule 500 MG PO BID Multivits-Min/Iron/FA/Lutein (Centrum Silver Women Tablet) 8 Mg Iron-400 Mcg- 300 Mcg Tablet 1 EACH PO noon Ranitidine (Ranitidine) 150 Mg Capsule 150 MG PO noon Scheduled PRN Acetaminophen (Acetaminophen) 500 Mg Tablet 500-1,000 MG PO Q6H PRN PRN For Pain Epinephrine (Epipen 2-David) 0.3 Mg/0.3 Ml Auto.injct 1 DOSE INJ prn PRN PRN For Anaphyllaxis Nitroglycerin SL (Nitrostat) 0.4 Mg Tab.subl 0.4 MG SL Q5MIN PRN PRN For Chest Pain General Time Seen by MD: 09:15 Chief Complaint Shortness of breath Sudden in Onset?: Yes Onset Occurred: 1 - 4 hours ago Symptom Duration: Since onset Severity: Current: No pain currently Pertinent Negative: Pt denies other symptoms Recent Healthcare: No recent doctor visit, Recent hospitalization Similar Sx Previous: No Past Medical History Past Medical History Notes: FULL CODE Associate Professor Of Pathology: Dr. Jain Cylinder Block Hole Reliner: Dr. Key PCP: Dr. Mukherjee Cardiac cath January 2007 no signficant coronary disease normal LV function increased LVEDP consistent with diastolic dysfunction Past Medical History known LBBB and AV block Previous NM Reports: Congestive heart failure, Hyperlipidemia, Hypertension Reports: Atrial fibrillation, Renal insufficiency Past Surgical History cardiac catheterization Left hip replacement Pacemaker placement Family History Reports: Coronary artery disease, Stroke Smoking History Former Smoker Social History Other Social History: Good social support, , Local resident Ambulatory Status Independent Review of Systems Constitutional: Denies: Chills, Fever Respiratory: Reports: Prod cough, clear, Shortness of breath Cardiovascular: Denies: Chest pain Musculoskeletal: Denies: Extremity pain, Extremity swelling Complete sys rev & neg: except as marked. Physical Exam Initial Vital Signs Vital Signs (First) Date Time Temp Pulse Resp B/P Pulse Ox O2 Delivery O2 Flow Rate FiO2 10/06/16 08:43 36.6 60 15 124/53 95 Nasal Cannula 3 Initial VS: Reviewed Head / Eyes: Atraumatic, Normocephalic, PERRL ENT: Mucous membranes moist, Conjunctiva normal, No scleral icterus Abdomen / GI: Soft, Non-tender, No guarding, No rebound, No distention Extremities: Vascular intact, Neuro intact, No tenderness Skin: Warm, Dry, No cyanosis Neurologic: Alert, Oriented, Nonfocal Psychiatric: Mood/affect normal, Behavior normal, Normal thought content General/Constitutional: Awake, Alert Neck: Atraumatic, Supple, No meningismus, No adenopathy Respiratory / Chest: No wheezing Rales / Rhonchi: Positive: Rales bilateral up to 1/3 Cardiovascular: Heart rate NL, No rubs Heart Sounds / Murmur: Positive: Murmur present... Trace lower extremity edema, bilaterally Interpretation & Diagnostics Lab Results Interpretation Result Diagram: 10/06/16 0947 10/06/16 0947 Test 10/06/16 09:47 White Blood Count 5.5th/mm3 (3.8-10.1) Red Blood Count 2.71mil/mm3 (3.90-5.20) Hemoglobin 8.3g/dL (12.0-15.6) Hematocrit 25.7% (35.0-46.0) Mean Corpuscular Volume 94.8fL (81-100) Mean Corpuscular Hemoglobin 30.6pg (27.0-35.0) Mean Corpuscular Hemoglobin Concent 32.3% (32.0-37.0) Red Cell Distribution Width 14.5% (12.3-15.4) Platelet Count 131bil/L (150-400) Neutrophils (%) (Auto) 73.9% (40-74) Lymphocytes (%) (Auto) 14.1% (14-46) Monocytes (%) (Auto) 7.4% (4-12) Eosinophils (%) (Auto) 4.0% (0-5) Basophils (%) (Auto) 0.4% (0-3) Sodium Level 156mEq/L (134-144) Potassium Level 5.0mEq/L (3.5-5.2) Chloride Level 94mEq/L (97-108) Carbon Dioxide Level 20mmol/L (18-29) Blood Urea Nitrogen 51mg/dL (8-27) Creatinine 2.25mg/dL (0.57-1.00) Estimat Glomerular Filtration Rate 30mL/min (>59) Glucose Level 129mg/dL (60-99) Uric Acid 6.9mg/dL (2.6-7.2) Calcium Level 9.2mg/dL (8.5-10.1) Magnesium Level 2.8mg/dL (1.6-2.6) Total Bilirubin 0.8mg/dL (0.0-1.2) Aspartate Amino Transf (AST/SGOT) 25U/L (0-50) Alanine Aminotransferase (ALT/SGPT) 18U/L (0-32) Alkaline Phosphatase 73U/L (25-165) Troponin T 0.023ug/L (0.0-0.011) Pro-B-Type Natriuretic Peptide 73158hm/mL (0-738) Total Protein 6.2g/dL (6.4-8.4) Albumin 3.9g/dL (3.4-5.0) Thyroid Stimulating Hormone (TSH) 9.210uIU/mL (0.450-4.500) Free Thyroxine 1.24ng/dL (0.82-1.77) Hold Brown Top Tube Received (Received) ECG Interpretation ECG Interpretation: Paced rhythm at a rate of 61 Time: 10:09 Interpreted by: ED physician X-Ray Chest Interpretation Chest Xray Interpretation: IMPRESSION: 1. Mild cephalization of pulmonary vasculature and prominence of the interstitium suspicious for CHF. Please correlate with clinical data. 2. Patchy opacities in lung bases bilaterally no suspicious for atelectasis or parenchymal scarring, however recurrent pneumonia could produce a similar appearance. Please correlate with clinical laboratory data. Dictated by: Radha Kelly MD, PhD on 10/06/2016 at 10:09 Approved by: Radha Kelly MD, PhD on 10/06/2016 at 10:11 Re-Eval/Medical Decision Med Decision/Clinical Course 80-year-old female history of CHF, ischemic cardiomyopathy status post pacemaker defibrillator placement presenting with shortness breath 5 days. She reports her Lasix was decreased by her primary doctor 1 week ago. Then progressively short of breath. Denies any chest pain. Here she is requiring 3 L oxygen. No previous oxygen requirements. BNP is 11,000. Sodium 156. Troponin is mildly elevated consistent with chronic elevation. She denies any chest pain. Patient will be admitted for CHF exacerbation. Lasix 40 mg IV given in ER. Vital signs stable. We will trend her troponins. Admit to hospitalist. Re-Evaluation/Progress : Time of Eval: 10:53 Re-Evaluation/Progress Note: Discussed need for admission, all questions addressed. Consultation : Referral / Consult Name: Russ Kirby Consulted With: Hospitalist Call Returned at: 11:40 Business Practices Supervisor: Accepts admit Counseled Regarding: Diagnosis, Lab results, Need for follow-up, Need for admission Discharge & Departure Impression: Primary Impression: CHF exacerbation Additional Impressions: Hypernatremia Elevated troponin Disposition: ADMITTED TO HOSPITAL Discharge Condition All VS Reviewed: Yes Condition: Stable Referrals: Ghulam Mukherjee MD (PCP) Scribe Attestation Portions of this note were transcribed by Pro Zuluaga. I, Dr. Jesus personally performed the history, physical exam and medical decision-making; I reviewed and confirmed the accuracy of the information in the transcribed note. Signed by: laya Sung. 10/06/2016, 18:00. Neal Jesus MD Oct 06, 2016 09:28 PRO ZULUAGA Oct 06, 2016 09:36
[2016-10-06 10:00] LABS: BASOPHILS % (AUTO) 0.4 % (0-3); MONOCYTES % (AUTO) 7.4 % (4-12); Mean Corpuscular Hemoglobin 30.6 pg (27.0-35.0); Mean Corpuscular Volume 94.8 fL (81-100); NEUTROPHILS % (AUTO) 73.9 % (40-74); Platelet Count 131 bil/L (150-400)
--- NOTE | 2016-10-06 10:13 | DRSVH ---
PROCEDURE: X-RAY CHEST ONE VIEW, PORTABLE ([id number]) INDICATIONS: dyspnea TECHNIQUE: One view of the chest was acquired. COMPARISON: [facility], CR, XR CHEST 1VW (PORTABLE), 09/10/2016, 12:39. FINDINGS: Surgical changes and devices: AICD is stable. Lungs and pleura: No pleural effusions or pneumothorax. Mild cephalization of pulmonary vasculature and interstitial prominence are noted. Patchy opacities in the lung bases noted.. Granuloma in the ri ght lung base is stable. Mediastinum: Mediastinal contours appear normal. Heart size is normal. Bones and chest wall: No suspicious bony lesions. Overlying soft tissues appear unremarkable. IMPRESSION: 1. Mild cephalization of pulmonary vasculature and prominence of the interstitium suspicious for CHF. Please correlate with clinical data. 2. Patchy opacities in lung bases bilaterally no suspicious for atelectasis or parenchymal scarring, however recurrent pneumonia could produce a similar appearance. Please correlate with clinical labora tory data. Dictated by: Radha Kelly MD, PhD on 10/06/2016 at 10:09 Approved by: Radha Kelly MD, PhD on 10/06/2016 at 10:11
[2016-10-06 10:16] LABS: INR 0.99 ratio
[2016-10-06 10:34] LABS: TROPONIN T 0.023 ug/L (0.0-0.011)
[2016-10-06] MEDS ORDERED: Furosemide 10 mg/mL 4 mL Inj IVPUSH ONE (10:55)
[2016-10-06] MEDS ORDERED: LABE100T4 PO (11:19)
[2016-10-06] MEDS ORDERED: HYDR-3939 PO ×2 (11:19)
[2016-10-06] MEDS ORDERED: ACET-171 PO (11:19)
[2016-10-06] MEDS ORDERED: FUR20 PO (11:19)
[2016-10-06] MEDS ORDERED: Alum-Mag Hydrox-Simeth 30 mL Suspension PO PRN ×2 (12:10→12:15)
[2016-10-06] MEDS ORDERED: Ondansetron 2 mg/mL 2 mL Inj IVPUSH PRN ×2 (12:10→12:15)
[2016-10-06] MEDS ORDERED: Senna-Docusate 8.6-50 mg Tablet PO PRN (12:15)
[2016-10-06] MEDS ORDERED: Polyethylene Glycol (PEG) 17 Gm Powder PO PRN (12:15)
--- NOTE | 2016-10-06 12:38 | NUR ---
Admit/Med rec Admission questions completed without difficulty. Med rec completed using up to date list from . Allergies verified and sticker placed. Up to date on flu vaccine.
[2016-10-06 12:41] LABS: APPEARANCE,URINE HAZY (CLEAR,HAZY); COLOR,URINE STRAW (YELLOW); OCCULT BLOOD,URINE NEGATIVE (NEGATIVE); PH,URINE 7.5 (5.0-8.0); UROBILINOGEN,URINE NORMAL (NORMAL)
[2016-10-06 13:02] LABS: Magnesium 2.8 mg/dL (1.6-2.6)
[2016-10-06 13:16] LABS: INR 0.99 ratio
[2016-10-06 15:06] LABS: OSMOLALITY, URINE 359 mOs/kH2O (250-1200)
--- NOTE | 2016-10-06 15:18 | NUR ---
Arrived to [facility] Patient arrived [place] [facility] [place] the ER at 1315. Patient is alert and oriented x3 and stated that she is not having pain. Patient stated that she is not short of breath as long as she is sitting in her bed. Her 02 sat is in the mid 90s on 1.5 liters of 02. Patients is at her bedside. Her med rec and Admit questions were completed by admit nurse. Patient was oriented to her room call light and caregivers.
--- NOTE | 2016-10-06 16:13 | PCM.HPMED ---
Subjective Date of Service Oct 06, 2016 Primary Provider: Admitting Physician: Russ Kirby Primary Care Physician: Ghulam Mukherjee MD Attending Physician: Russ Kirby Admit Status: From the Emergency Department Chief Complaint: "wheezing" History of Present Illness: Ms. Kim Goldberg is an 80 year old woman with history of congestive heart failure, nonischemic cardiomyopathy, atrial fibrillation, renal insufficiency, hyperlipidemia, and hypertension who presented to the emergency department for worsening shortness of breath and wheezing that started 3 days ago. She reports that for the past 3 days when she woke up in the morning she is very wheezy and "feels congested in my chest". The past 2 days it got better throughout the day without her making any changes. This morning, she felt like she could not tolerate the shortness of breath anymore. Her states that she looked like she was in distress. Her reports that initially when he checked her oxygen saturation it was 96%, but then he had her sit down and he checked it 10 minutes later and it went down to 85%. She also has a cough that has been there for the past 1-2 months. It is intermittently productive with a yellow sputum. She had an RSV infection earlier this year. She does not have any orthopnea and sleeps with one pillow. She does not wake up in the middle of the night with coughing or gasping for breath, but when she first wakes up, she experiences both. She has not noticed any swelling in her legs or weight gain. Her has kept track of her weight and reports a 4 pound weight gain over the past 12 days. She recently followed up with her primary care provider around September 27. He decreased her Lasix from 40 mg to 20 mg once daily. She states that she drinks a lot of water with her medications. Her daughter cooks for them and cooks a low-salt diet. Both of her legs feel weak because she has been spending a lot of time in bed. She has chronic low back pain. She felt nauseous this morning and reports that she "gags easily." She does not have fever or chills, changes in her vision, sneezing, rhinorrhea, sore throat, dysuria, urinary frequency, abdominal pain, vomiting, diarrhea, constipation, melena, hematochezia, new numbness or tingling, anxiety, or depression. In the emergency department, she was given 40 mg of IV furosemide once. She was also given a dose of Maalox, Zofran, and Tylenol Review of Systems: A comprehensive review of systems was conducted with the patient and found to be negative except as above in the History of Present Illness. Allergies Coded Allergies: Yellow Jacket (Verified Allergy, Severe, Anaphylaxis, 10/06/16) Sulfa (Sulfonamide Antibiotics) (Verified Allergy, Unknown, KIDNEY PROBLEMS, 10/06/16) Home Medications Acetaminophen 500 mg to 1000 mg every 6 hours as needed for pain Amlodipine 10 mg twice per day Aspirin 81 mg once daily at bedtime Atorvastatin 80 mg once daily at bedtime Vitamin D3 1000 unit tablet once daily at noon Cranberry extract 300 mg twice per day EpiPen 1 dose as needed for anaphylaxis Furosemide 20 mg once daily Hydralazine 75 mg at 5 AM and at noon Hydralazine 50 mg at 4 PM, 6 PM, and 8 PM Isosorbide mononitrate extended release 60 mg once daily in the morning Labetalol 200 mg twice daily Magnesium 500 mg twice daily Multivitamin once daily at noon Nitroglycerin sublingual every 5 minutes as needed for chest pain Ranitidine 150 mg once daily at noon PMH Systolic and diastolic congestive heart failure Non-ischemic cardiomyopathy Bundle branch block Sick sinus syndrome Atrial fibrillation Hyperlipidemia Hypertension Chronic kidney disease Chronic anemia Surgical History Left hip replacement. Cardiac cath January 2007- No significant coronary disease normal LV function and increased LVEDP consistent with diastolic dysfunction. Left renal stent. Total hysterectomy with bilateral salpingoophrectomy. Bladder prolapse status post bladder sling x 2. Biventricular ICD placement 09/10/2016 Family History Father had coronary artery disease Mother had kidney failure and heart failure Social History Hx Alcohol Use: No Hx Substance Use: No Hx Tobacco Use: Yes Smoking Status: Former Smoker ([place] 30s or 40s) Living Arrangement: with Family Exam Vital Signs Vital Sign - Last Date Time Temp Pulse Resp B/P Pulse Ox O2 Delivery O2 Flow Rate FiO2 10/06/16 13:31 36.3 69 18 145/63 94 Nasal Cannula 1.50 Exam General: Elderly woman laying in bed, no acute distress, well-developed, well- nourished, appropriately interactive HEENT: Normocephalic, atraumatic. External ears without defect. Pupils equal, round, and reactive to light and accommodation. Anicteric sclerae, moist conjunctivae, and no lid lag. Oropharynx free of erythema and cobble stoning with dry mucosa. Neck: Mild skin tenting. Supple with full range of motion. No jugular venous distension. No lymphadenopathy or thyromegaly. Cardiovascular: Regular rate and rhythm with III/ systolic murmur that radiates to the neck. No rubs or gallops appreciated Pulmonary: Bilaterally diffuse crackles. Normal respiratory effort with no use of accessory muscles. Abdomen: Bowel tones present. Soft, nontender, nondistended. No hepatosplenomegaly or masses appreciated. Extremities: No clubbing, cyanosis, edema, or lymphadenopathy appreciated. Skin: Normal temperature and texture; no rash, ulcers, or subcutaneous nodules appreciated. Neurological: Cranial nerves grossly intact. Normal muscle strength, tone, and bulk. Reflexes, coordination, and sensory function within normal limits. No known gait impairment. Psychiatric: Normal mood and affect. Alert and oriented to person, place, and time. Diminished short term memory. Lab and Diagnostics Result Diagram: 10/06/16 0947 10/06/16 0947 X-Rays, CTs and MRIs PROCEDURE: X-RAY CHEST ONE VIEW, PORTABLE IMPRESSION: 1. Mild cephalization of pulmonary vasculature and prominence of the interstitium suspicious for CHF. Please correlate with clinical data. 2. Patchy opacities in lung bases bilaterally no suspicious for atelectasis or parenchymal scarring, however recurrent pneumonia could produce a similar appearance. Please correlate with clinical laboratory data. Approved by: Radha Kelly MD, PhD on 10/06/2016 at 10:11 12-lead ECG Paced rhythm at 61 bpm Cardiac Echo Impressions Echocardiogram Report (06/2016) Interpretation Summary The left ventricle is normal in size but left ventricular systolic function is moderate to severely reduced with the ejection fraction visually estimated to be 25-30%, now with a significant dyssynchronous contraction pattern, consistent with a conduction abnormality and moderate to severe global hypokinesis that is worse in the septum and apex. This is much more pronounced compared to the previous study and compared to the prior exam, left ventricular function has significantly decreased. The right ventricle is normal size and right ventricular systolic function is at the lower limits of normal. This is unchanged compared to the previous study. The right ventricular systolic pressure is estimated at 48 mmHg assuming a right atrial pressure of 3 mm Hg, and is likely significantly lower compared to the previous study. Both atria are normal in size and both atria have mildly decreased in size since the prior echo exam. There is moderate mitral regurgitation and moderate tricuspid regurgitation that appear less prominent compared to the previous study. There is mild aortic stenosis and mild aortic regurgitation that are unchanged compared to the previous study. The ascending aorta is at the upper limits of normal in size but is unchanged compared to the previous study. The patient was in probable sinus tachycardia with heart rates between 100- 120 bpm during the exam which is considerably faster compared to the previous study. Reading Physician:04:29 PM Assessment & Plan Ms. Kim Goldberg is an 80 year old woman with history of congestive heart failure, nonischemic cardiomyopathy, atrial fibrillation, renal insufficiency, hyperlipidemia, and hypertension who presented to the emergency department for worsening shortness of breath and wheezing that started 3 days ago. 1. Acute exacerbation of systolic and diastolic congestive heart failure, present on admission. Active. -Last echocardiogram as above. Showed EF of 25-30%. She has non-ischemic cardiomyopathy. -Chest x-ray shows mild cephalization of pulmonary vasculature and prominence of the interstitium and patient [place] [address], which is actually lower than previous levels in the past 6 months and is in the context of CKD. -Continue home medications of aspirin; nitroglycerin as needed for chest pain; and amlodipine, hydralazine, isosorbide mononitrate, and labetalol -Increase furosemide to 40 mg once daily tomorrow morning pending sodium level, blood pressure, and volume status -Monitor daily weight and intake and output -Consider a palliative care consultation tomorrow. 2. Hypernatremia, acute, present on admission. Active. -Other than her lung exam, patient appears hypovolemic with dry mucous membranes , mild skin tenting at the neck, and no leg edema. -Likely secondary to decreased PO intake of free water. -1/2 normal saline at 75 ml/h as per nephrology -Continue to monitor with morning labs 3. Elevated troponin, chronic, present on admission. Active. -Troponin actually decreased compared to troponin levels prior to 07/28/16 -Continue to trend 4. Chronic kidney disease, stage III, present on admission. Active. -BUN 51, Cr 2.25, eGFR 30. Outside labs from 09/27/16 show BUN 52, Cr 2.6. -Nephrology consulted and following. Their time and recommendations are appreciated. Other chronic conditions: 5. Sick sinus syndrome status post biventricular ICD placement -Monitor on telemetry -Continue magnesium oxide 6. Nonischemic cardiomyopathy -Continue medications as above 7. Hypertension -Continue medications as above 8. Hyperlipidemia -Continue atorvastatin Acetaminophen as needed for pain or fever. Zofran as needed for nausea and vomiting. Senna and Miralax as needed for constipation. EKG and nitroglycerin as needed for chest pain. PCP is Dr. Mukherjee Nephologist is Dr. Key Die Trimmer is Dr. Jain VTE Prophylaxis: Sub-Q Heparin (Unfractionated) Resuscitation Status: CPR: Attempt Resuscitation Attending Statement The patient was seen and examined together with Resident / House-staff on and I agree with the history, exam and plan as outlined in the note above. Corine Alonzo DO Oct 06, 2016 16:13 Russ Kirby Oct 07, 2016 17:10
[2016-10-06] MEDS: Sodium Chloride LOK Flush 10 mL Syringe IVFLUSH SCH (18:58)
--- NOTE | 2016-10-06 19:37 | CONS ---
[address] [address] CONSULTATION REPORT PATIENT: WILLIE ACOSTA : 1935 MR#: [id number] ADMIT: 10/06/2016 JOB ID: [id number] DATE OF SERVICE: 10/06/2016 RENAL CONSULTATION: HISTORY OF PRESENT ILLNESS: The patient is a very pleasant 80-year-old white female who is well known to me from previous renal consultations from previous admissions. She has a history of chronic kidney disease and is being followed by an outside customer insight analyst. She presented today with acute hypernatremia and renal consultation is being sought for further evaluation of her hypernatremia. She has a history of stage 4 kidney disease secondary to renal atrophy from previous stented renal artery and subsequent loss of function and hypertension with hypertensive heart disease and hypertensive nephrosclerosis, along with ischemic renal disease. She normally runs a normal sodium and she is normally about stage 4 chronic kidney disease. She states that for the last month or so she has had a "flu-like illness." This is mainly being characterized by a persistent cough, intermittently productive of scant amounts of white sputum, and occasional vomiting secondary to repeated coughing. She also states that when she has heavy coughing she subsequently gets short of breath as a result of this. She denies any excessive fluid intake, and actually says she drinks very little water, orthopnea, paroxysmal nocturnal dyspnea, excessive salt intake, lower extremity edema, or increasing abdominal girth. She came to the emergency room complaining of shortness of breath following a severe coughing episode and was found to be hypernatremic and subsequently admitted. At the time of my evaluation she was resting quite comfortably and denies any acute problems other than some intermittent cough. PAST MEDICAL HISTORY: Significant for chronic kidney disease, congestive heart failure with both systolic and diastolic components, recent pacemaker insertion due to sick sinus syndrome, controlled atrial fibrillation, hypertension with hypertensive heart disease and hypertensive nephrosclerosis, renal atrophy, and hyperlipidemia. PAST SURGICAL HISTORY: Significant for left hip replacement, heart catheterization, left renal stent, total hysterectomy, bladder reconstruction x2, and an AICD placement approximately a month ago. ALLERGIES: SULFA AND BEE STINGS. SOCIAL HISTORY: She denies use of alcohol, tobacco, or illicit drugs. She lives with her family and states she is normally quite active in her numerous activities of daily living, which she states she does without any significant problems or restriction. REVIEW OF SYSTEMS: Otherwise is negative for any recent nausea, vomiting, diarrhea, anorexia, fever, chills, rashes, or arthralgias. Her medications have been reviewed. PHYSICAL EXAMINATION: Revealed a rather healthy-appearing 80-year-old white female who was alert and oriented x3, in no distress at time of my evaluation. Her blood pressure is 158/65 with a pulse rate of 70. HEENT is remarkable for pale sclerae and some possibly dry mucous membranes. Neck is supple without adenopathy, thyromegaly, or jugular venous distention, even when lying flat. Her lungs are clear to auscultation. Heart is regular and rhythmical, with both a systolic and diastolic murmur. Her systolic murmur is a grade 2/6 of a crescendo type. Abdomen is soft, without any evidence of any type of fluid wave. Tenderness to palpation, rebound, guarding, or masses were not noted. Her liver is normal size and there is no evidence of hepatojugular reflux. Extremities do not show any evidence of any clubbing, cyanosis, or edema. Skin turgor is slightly diminished, but otherwise is normal. The review of her x-ray in the emergency department is virtually unchanged from her last chest x-ray a month ago when she had her pacemaker put in and really there is no evidence of acute congestive heart failure. LABORATORY: On admission showed a sodium of 156, potassium 5.0, chloride 94, bicarbonate 20, BUN and creatinine were 51 and 2.27, which is actually improved from her previous admission. Her TSH is mildly elevated at 9.1. Her serum osmolarity is 305 and her urine osmolarity is 359. Her urine sodium is 42. Urinalysis showed a specific gravity 1.015, pH is 7.5. Tests for protein were positive. She had 3-10 RBCs per high-power field, 0-5 WBCs per high-power field. IMPRESSION: 1. Acute hypernatremia due to mild intravascular volume depletion without any evidence of congestive heart failure. 2. Chronic kidney disease stage 4. 3. Solitary kidney. 4. Hypertension with hypertensive heart disease and hypertensive nephrosclerosis. RECOMMENDATION: I would like to start her on half-normal saline along with chlorthalidone to attempt to mobilize her sodium stores. As she does not have any evidence of heart failure, I will hold off any loop diuretics pending my reevaluation in the morning. Once again, I would like to thank you for allowing me to participate in the care of this most pleasant and interesting patient. I will be following her closely with you.
[2016-10-06] MEDS ORDERED: CRANBERRY EXTRACT 300 MG PO SCH (20:30)
[2016-10-06] MEDS: Heparin 5,000 Unit/mL Inj SUBQ SCH (21:48)
[2016-10-07] MEDS: Sodium Chloride LOK Flush 10 mL Syringe IVFLUSH SCH ×2 (00:30→08:45)
[2016-10-07 00:37] VITALS: BP 145/60; PULSE 71; RESP 18; O2SAT 92
[2016-10-07 05:16] VITALS: BP 150/68; PULSE 71; O2SAT 92
[2016-10-07 05:50] VITALS: PULSE 74
[2016-10-07 06:56] LABS: BASOPHILS % (AUTO) 0.5 % (0-3); EOSINOPHILS % (AUTO) 6.3 % (0-5); MONOCYTES % (AUTO) 13.1 % (4-12); Mean Corpuscular Hemoglobin 31.5 pg (27.0-35.0); Mean Corpuscular Volume 95.4 fL (81-100); NEUTROPHILS % (AUTO) 55.8 % (40-74); Platelet Count 125 bil/L (150-400)
[2016-10-07 07:29] LABS: TROPONIN T 0.018 ug/L (0.0-0.011)
[2016-10-07 08:00] VITALS: PULSE 72
[2016-10-07] MEDS ORDERED: Isosorbide Mononitrate 60 mg ER24 Tablet PO SCH (08:30)
[2016-10-07] MEDS: Heparin 5,000 Unit/mL Inj SUBQ SCH (08:44)
[2016-10-07 10:14] VITALS: BP 128/53; PULSE 60; RESP 18; O2SAT 94
--- NOTE | 2016-10-07 11:10 | NUR ---
RA at rest 87%. placed on 2lpm to keep SP02>92%
[2016-10-07] MEDS ORDERED: Darbepoetin Alfa 60 mCg/0.3 mL Inj SUBQ ONE (11:30)
--- NOTE | 2016-10-07 11:32 | PCM.PNNEPH ---
Subjective Date of Service Oct 07, 2016 Subjective The patient's sodium has corrected and she states that she feels quite well. Her blood pressure rate has gone up a bit and I will defer that to her outside brief writer for further evaluation. My only other concern is that her hemoglobin is 8.2 which is consistent with her history of chronic kidney disease. She states that she has never received any ESAs in the past and I will give her a dose of Aranesp while her iron studies are pending. Exam Vital Signs Vital Sign - Last Date Time Temp Pulse Resp B/P Pulse Ox O2 Delivery O2 Flow Rate FiO2 10/07/16 10:14 36.6 60 18 128/53 94 Nasal Cannula 1.50 Intake and Output 10/06/16 10/06/16 10/07/16 Cumulative From/Thru 15:00 23:00 07:00 10/06/16 08:43 - 10/07/16 06:24 Intake Total 570 ml 400 ml 970 ml Output Total 250 ml 500 ml 350 ml 1100 ml Balance -250 ml 70 ml 50 ml -130 ml Intake Oral 570 ml 400 ml 970 ml Output Urine Total 250 ml 500 ml 350 ml 1100 ml # Bowel Movements 1 1 Exam HEENT examination is remarkable pelvis. Neck is supple without adenopathy, thyromegaly, or intravenous distention. Lungs are clear to auscultation. Heart is regular rhythmical with a soft systolic murmur. Abdomen is soft without any tenderness or rebound guarding masses or hepatosplenomegaly. Extremities do not show any evidence of any clubbing, cyanosis, or edema. Skin turgor is good and no evidence of any rashes. Lab and Diagnostics Result Diagram: 10/07/16 0635 10/07/16 0635 X-Rays, CTs and MRIs PROCEDURE: X-RAY CHEST ONE VIEW, PORTABLE IMPRESSION: 1. Mild cephalization of pulmonary vasculature and prominence of the interstitium suspicious for CHF. Please correlate with clinical data. 2. Patchy opacities in lung bases bilaterally no suspicious for atelectasis or parenchymal scarring, however recurrent pneumonia could produce a similar appearance. Please correlate with clinical laboratory data. Approved by: Radha Kelly MD, PhD on 10/06/2016 at 10:11 12-lead ECG Paced rhythm at 61 bpm Cardiac Echo Impressions Echocardiogram Report (06/2016) Interpretation Summary The left ventricle is normal in size but left ventricular systolic function is moderate to severely reduced with the ejection fraction visually estimated to be 25-30%, now with a significant dyssynchronous contraction pattern, consistent with a conduction abnormality and moderate to severe global hypokinesis that is worse in the septum and apex. This is much more pronounced compared to the previous study and compared to the prior exam, left ventricular function has significantly decreased. The right ventricle is normal size and right ventricular systolic function is at the lower limits of normal. This is unchanged compared to the previous study. The right ventricular systolic pressure is estimated at 48 mmHg assuming a right atrial pressure of 3 mm Hg, and is likely significantly lower compared to the previous study. Both atria are normal in size and both atria have mildly decreased in size since the prior echo exam. There is moderate mitral regurgitation and moderate tricuspid regurgitation that appear less prominent compared to the previous study. There is mild aortic stenosis and mild aortic regurgitation that are unchanged compared to the previous study. The ascending aorta is at the upper limits of normal in size but is unchanged compared to the previous study. The patient was in probable sinus tachycardia with heart rates between 100- 120 bpm during the exam which is considerably faster compared to the previous study. Reading Physician:04:29 PM Plan Impression Impression #1 acute hyponatremia which is resolved #2 chronic kidney disease stage IV #3 hypertension with hypertensive heart disease and hypertensive nephrosclerosis without congestive heart failure #4 anemia secondary to chronic kidney disease recommendation #1 for a dose of 60 mg of Aranesp today and have instructed her to follow up with her brief writer to get her on a weekly dosage of Aranesp or another form of erythropoietin. From my point of view she could be discharged as the recommendations of the primary team. Plan The patient will continue hyperbaric treatments. Will return () for treatment #() David Thakkar DO Oct 07, 2016 11:32
[2016-10-07 13:24] LABS: Unsaturated Iron Binding 215.2 ug/dL
[2016-10-07 13:55] VITALS: BP 139/58; PULSE 64; RESP 18; O2SAT 94
--- NOTE | 2016-10-07 15:57 | PCM.DIMED ---
Discharge Instructions Date of Service Oct 07, 2016 Dates of Hospitalization Oct 06, 2016 at 11:54 Diet Heart Healthy Activity Limited until seen by PCP Call your provider Fever or Chills, Shortness of breath, Bleeding, Chest pain, Excessive diarrhea, Weakness (unilateral) Patient Instructions Continue your medications as previously prescribed. Follow up with your benefits manager in 1-2 weeks as previously arranged, and he can advise you to possibly make changes to your furosemide dose. Also, discuss possibly starting a weekly dosage of Aranesp or another form of erythropoietin for anemia. Follow up with your primary care provider in 1 week. Continue oxygen supplementation at home with home oxygen. Follow-up Provider: Ghulam Mukherjee MD Follow-up with PCP in: 1 week Provider: Aga Key MD Follow-up in: 2 weeks Corine Alonzo DO Oct 07, 2016 10:43
--- NOTE | 2016-10-07 16:42 | NUR ---
Social Work: Initial Assessment/Discharge D: Per EMR review, pt is an 80 year old female admitted for CHF exacerbation. Pt is Medicare with for Life Supplement; pt has no LTC insurance or VA benefits. PCP is Ghulam Mukherjee MD. NOK Is Barron Goldberg, spouse, . Advanced directives not completed- information provided by BUSHWALKING GUIDE. Readmit score is moderate, 3/8. BUSHWALKING GUIDE met with pt and spouse at bedside. Sw role and contact info provided. See initial assessment. Pt and spouse live in a single story home with one step to enter. Pt is I with ADLs and uses no DME for ambulation. Pt has never had HH or jail. Pt continues to drive. Pt's spouse will be transporting her home. EMR reviewed, no sw needs at this time. A: Pt who is I at baseline. P: Pt anticipated to discharge home tonight via POV and no sw needs. KATIE Molina Addendum: 10/07/16 at 1645 by ANDRZEJ THURSTON Amended: Links added.
--- NOTE | 2016-10-07 17:07 | NUR ---
Discharge Reviewed d/c instructions with pt including care notes, no new prescriptions, pt signed and given originals, copies to chart. IV d/c intact, tele removed. VS stable at d/c, pt going home with O2 bottle via [facility] to visit pt at home tonight and set up with home O2. All belongings packed by pt and in room. Pt taken off unit via WC by GLAZE GRINDER to car, to drive home.
--- NOTE | 2016-10-07 19:41 | PCM.DC.MED ---
Discharge Summary Date of Service Oct 07, 2016 Dates of Hospitalization Date of Hospital Admission Oct 06, 2016 at 11:54 Date of Discharge: Oct 07, 2016 Providers: Admitting Physician: Russ Kirby Primary Care Physician: Ghulam Mukherjee MD Attending Physician: Russ Kirby Diagnosis at Time of Discharge Diagnosis at Time of Discharge 1. Acute hypoxic respiratory failure. 2. Hypernatremia, acute, present on admission. Resolved. 3. Ruled out an acute exacerbation of chronic systolic and diastolic congestive heart failure. 4. Elevated troponin, chronic, present on admission. 5. Chronic kidney disease, stage IV, present on admission. Other chronic conditions: 6. Sick sinus syndrome status post biventricular ICD placement 7. Nonischemic cardiomyopathy 8. Hypertension 9. Hyperlipidemia 10. 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 Procedures XRay, CTs & MRIs PROCEDURE: X-RAY CHEST ONE VIEW, PORTABLE IMPRESSION: 1. Mild cephalization of pulmonary vasculature and prominence of the interstitium suspicious for CHF. Please correlate with clinical data. 2. Patchy opacities in lung bases bilaterally no suspicious for atelectasis or parenchymal scarring, however recurrent pneumonia could produce a similar appearance. Please correlate with clinical laboratory data. Approved by: Radha Kelly MD, PhD on 10/06/2016 at 10:11 ECG 12 Lead Paced rhythm at 61 bpm Cardiac Echo Impression Echocardiogram Report (06/2016) Interpretation Summary The left ventricle is normal in size but left ventricular systolic function is moderate to severely reduced with the ejection fraction visually estimated to be 25-30%, now with a significant dyssynchronous contraction pattern, consistent with a conduction abnormality and moderate to severe global hypokinesis that is worse in the septum and apex. This is much more pronounced compared to the previous study and compared to the prior exam, left ventricular function has significantly decreased. The right ventricle is normal size and right ventricular systolic function is at the lower limits of normal. This is unchanged compared to the previous study. The right ventricular systolic pressure is estimated at 48 mmHg assuming a right atrial pressure of 3 mm Hg, and is likely significantly lower compared to the previous study. Both atria are normal in size and both atria have mildly decreased in size since the prior echo exam. There is moderate mitral regurgitation and moderate tricuspid regurgitation that appear less prominent compared to the previous study. There is mild aortic stenosis and mild aortic regurgitation that are unchanged compared to the previous study. The ascending aorta is at the upper limits of normal in size but is unchanged compared to the previous study. The patient was in probable sinus tachycardia with heart rates between 100- 120 bpm during the exam which is considerably faster compared to the previous study. Reading Physician:04:29 PM Brief History From the history and physical performed by Dr. Corine Alonzo on 10/06/2016: Ms. Kim Goldberg is an 80 year old woman with history of congestive heart failure, nonischemic cardiomyopathy, atrial fibrillation, renal insufficiency, hyperlipidemia, and hypertension who presented to the emergency department for worsening shortness of breath and wheezing that started 3 days ago. She reports that for the past 3 days when she woke up in the morning she is very wheezy and "feels congested in my chest". The past 2 days it got better throughout the day without her making any changes. This morning, she felt like she could not tolerate the shortness of breath anymore. Her states that she looked like she was in distress. Her reports that initially when he checked her oxygen saturation it was 96%, but then he had her sit down and he checked it 10 minutes later and it went down to 85%. She also has a cough that has been there for the past 1-2 months. It is intermittently productive with a yellow sputum. She had an RSV infection earlier this year. She does not have any orthopnea and sleeps with one pillow. She does not wake up in the middle of the night with coughing or gasping for breath, but when she first wakes up, she experiences both. She has not noticed any swelling in her legs or weight gain. Her has kept track of her weight and reports a 4 pound weight gain over the past 12 days. She recently followed up with her primary care provider around September 27. He decreased her Lasix from 40 mg to 20 mg once daily. She states that she drinks a lot of water with her medications. Her daughter cooks for them and cooks a low-salt diet. Both of her legs feel weak because she has been spending a lot of time in bed. She has chronic low back pain. She felt nauseous this morning and reports that she "gags easily." She does not have fever or chills, changes in her vision, sneezing, rhinorrhea, sore throat, dysuria, urinary frequency, abdominal pain, vomiting, diarrhea, constipation, melena, hematochezia, new numbness or tingling, anxiety, or depression. In the emergency department, she was given 40 mg of IV furosemide once. She was also given a dose of Maalox, Zofran, and Tylenol Hospital Course Ms. Kim Goldberg is an 80 year old woman with history of congestive heart failure, nonischemic cardiomyopathy, atrial fibrillation, renal insufficiency, hyperlipidemia, and hypertension who presented to the emergency department for worsening shortness of breath and wheezing that started 3 days ago. 1. Acute hypoxic respiratory failure. -Patient is not usually on oxygen at home. -Her reported oxygen saturation at 85% on room air at home. Patient also was at 87% on room air at rest. -Most likely, secondary to viral bronchitis since her cough has been going on for weeks. -Completed an order for home oxygen for the patient 2. Hypernatremia, acute, present on admission. Resolved. -Initially sodium 156 but then decreased to 139 on the day of discharge -Patient appeared initially hypovolemic with dry mucous membranes, mild skin tenting at the neck, and no leg edema. -Likely secondary to decreased PO intake of free water -1/2 normal saline at 75 ml/h was given per nephrology 3. Ruled out an acute exacerbation of chronic systolic and diastolic congestive heart failure. -Last echocardiogram as above. Showed EF of 25-30%. She has non-ischemic cardiomyopathy. -Chest x-ray shows mild cephalization of pulmonary vasculature and prominence of the interstitium but did not appear significantly changed from prior chest x- rays. B[place] [address]323, which was actually lower than previous levels in the past 6 months and is in the context of CKD. -Given a dose of IV furosemide 40 mg once in the emergency department -Continued home medications of aspirin; nitroglycerin as needed for chest pain; and amlodipine, hydralazine, isosorbide mononitrate, and labetalol -Monitored daily weight and intake and output -Recommended that her tank cleaner advise patient on any possible changes to the furosemide dose 4. Elevated troponin, chronic, present on admission. -Troponin actually decreased compared to troponin levels prior to 07/28/16 -Continued to trend and remained only mildly elevated, but decreased to prior troponin levels. 5. Chronic kidney disease, stage IV, present on admission. -BUN 51, Cr 2.25, eGFR 30. Outside labs from 09/27/16 show BUN 52, Cr 2.6. -Nephrology consulted and following. Their time and recommendations were appreciated. Other chronic conditions: 6. Sick sinus syndrome status post biventricular ICD placement -Monitored on telemetry -Continued magnesium oxide 7. Nonischemic cardiomyopathy -Continued medications as above 8. Hypertension -Continued medications as above 9. Hyperlipidemia -Continued atorvastatin 10. 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 -Patient was given a dose of Aranesp injection prior to discharge Exam Vital Signs (Last) Date Time Temp Pulse Resp B/P Pulse Ox O2 Delivery O2 Flow Rate FiO2 10/07/16 13:55 36.7 64 18 139/58 94 Nasal Cannula 1.50 Exam General: Elderly woman laying in bed, no acute distress, well-developed, well- nourished, appropriately interactive HEENT: Normocephalic, atraumatic. External ears without defect. Pupils equal, round, and reactive to light and accommodation. Anicteric sclerae, moist conjunctivae, and no lid lag. Oropharynx free of erythema and cobble stoning with moist mucosa. Neck: Supple with full range of motion. No jugular venous distension. No lymphadenopathy or thyromegaly. Cardiovascular: Regular rate and rhythm with III/ systolic murmur that radiates to the neck. No rubs or gallops appreciated Pulmonary: Rhonchi at bilateral upper lobes Normal respiratory effort with no use of accessory muscles. Abdomen: Bowel tones present. Soft, nontender, nondistended. No hepatosplenomegaly or masses appreciated. Extremities: No clubbing, cyanosis, edema, or lymphadenopathy appreciated. Skin: Normal temperature and texture; no rash, ulcers, or subcutaneous nodules appreciated. Neurological: Cranial nerves grossly intact. Normal muscle strength, tone, and bulk. Reflexes, coordination, and sensory function within normal limits. No known gait impairment. Psychiatric: Normal mood and affect. Alert and oriented to person, place, and time. Diminished short term memory. Test 10/06/16 09:47 10/06/16 12:29 10/06/16 12:45 10/07/16 06:35 Uric Acid 6.9mg/dL (2.6-7.2) Total Bilirubin 0.8mg/dL (0.0-1.2) Aspartate Amino Transf (AST/SGOT) 25U/L (0-50) Alanine Aminotransferase (ALT/SGPT) 18U/L (0-32) Alkaline Phosphatase 73U/L (25-165) Pro-B-Type Natriuretic Peptide 35898zr/mL (0-738) Total Protein 6.2g/dL (6.4-8.4) Albumin 3.9g/dL (3.4-5.0) Thyroid Stimulating Hormone (TSH) 9.210uIU/mL (0.450-4.500) Free Thyroxine 1.24ng/dL (0.82-1.77) Hold Brown Top Tube Received (Received) Urine Color Straw (YELLOW) Urine Appearance Hazy (CLEAR,HAZY) Urine pH 7.5 (5.0-8.0) Urine Specific [place] 1.015 (1.003-1.035) Urine Protein 100mg/dL (NEG,TRACE) Urine Glucose (UA) Negativemg/dL (NEGATIVE) Urine Ketones Negativemg/dL (NEGATIVE) Urine Occult Blood Negative (NEGATIVE) Urine Nitrite Negative (NEGATIVE) Urine Bilirubin Negative (NEGATIVE) Urine Urobilinogen Normalmg/dL (NORMAL) Urine Leukocyte Esterase Negative (NEGATIVE) Urine RBC 3-10/hpf (0-2) Urine WBC 0-5/hpf (0-5) Urine Epithelial Cells Occasional/hpf (NONE-MOD) Urine Crystals None seen (NONE SEEN) Urine Bacteria None/hpf (NONE-FEW) Urine Hyaline Casts None/lpf (NONE) Urine Granular Casts None seen (NONE SEEN) Urine Waxy Casts None seen (NONE SEEN) Urine Red Blood Cell Casts None seen (NONE SEEN) Urine White Blood Cell Casts None seen (NONE SEEN) Urine Mucus None seen (None Seen) Urine Trichomonas None seen (NONE SEEN) Urine Yeast None (NONE SEEN) Urinalysis Comment None Urine Culture Reflexed Not indicated Urine Osmolality 359mOs/kH2O (250-1200) Urine Random Creatinine 61mg/dL (15-278) Urine Random Sodium 42mEq/L Osmolality 305 (275-300) Prothrombin Time 10.6sec (8.1-12.5) Prothromb Time International Ratio 0.99ratio White Blood Count 4.4th/mm3 (3.8-10.1) Red Blood Count 2.60mil/mm3 (3.90-5.20) Hemoglobin 8.2g/dL (12.0-15.6) Hematocrit 24.8% (35.0-46.0) Mean Corpuscular Volume 95.4fL (81-100) Mean Corpuscular Hemoglobin 31.5pg (27.0-35.0) Mean Corpuscular Hemoglobin Concent 33.1% (32.0-37.0) Red Cell Distribution Width 14.1% (12.3-15.4) Platelet Count 125bil/L (150-400) Neutrophils (%) (Auto) 55.8% (40-74) Lymphocytes (%) (Auto) 24.1% (14-46) Monocytes (%) (Auto) 13.1% (4-12) Eosinophils (%) (Auto) 6.3% (0-5) Basophils (%) (Auto) 0.5% (0-3) Sodium Level 139mEq/L (134-144) Potassium Level 4.0mEq/L (3.5-5.2) Chloride Level 102mEq/L (97-108) Carbon Dioxide Level 19mmol/L (18-29) Blood Urea Nitrogen 52mg/dL (8-27) Creatinine 2.43mg/dL (0.57-1.00) Estimat Glomerular Filtration Rate 27mL/min (>59) Glucose Level 107mg/dL (60-99) Calcium Level 9.1mg/dL (8.5-10.1) Magnesium Level 2.5mg/dL (1.6-2.6) Triglycerides Level 100mg/dL (0-149) Cholesterol Level 131mg/dL (100-199) LDL Cholesterol, Calculated 59.000mg/dL (0-99) VLDL Cholesterol 20.000mg/dL HDL Cholesterol 52mg/dL (>39) Cholesterol/HDL Ratio 2.52 (0.0-4.4) Procalcitonin 0.10ng/mL (0.00-0.08) Test 10/07/16 12:10 Iron Level 47ug/dL (35-150) Total Iron Binding Capacity 262ug/dL (250-450) Percent Iron Saturation 18%sat (15-50) Unsaturated Iron Binding 215.2ug/dL Troponin T 0.019ug/L (0.0-0.011) Discharge Medications Discharge Medications Amlodipine (Amlodipine) 10 Mg Tablet 10 MG PO BID (Reported) Aspirin Chew (Aspirin Chew) 81 Mg Chew 81 MG PO HS (Reported) Atorvastatin (Lipitor) 80 Mg Tablet 80 MG PO HS (Reported) Cholecalciferol (Vitamin D3) (Vitamin D3) 1,000 Unit Tab.chew 1,000 UNIT PO noon (Reported) Cranberry Extract (Cranberry) 300 Mg Tablet 300 MG PO BID (Reported) Furosemide (Furosemide) 20 Mg Tab 20 MG PO DAILY (Reported) Hydralazine (Hydralazine) 25 Mg Tablet 75 MG PO 5am, noon (Reported) Hydralazine (Hydralazine) 25 Mg Tablet 50 MG PO 4pm,6pm,8pm (Reported) Isosorbide MN ER (Isosorbide MN ER) 60 Mg Tab.er.24h 60 MG PO QAM (Reported) Labetalol (Labetalol) 100 Mg Tablet 200 MG PO BID (Reported) Magnesium Oxide (Magnesium) 500 Mg Capsule 500 MG PO BID (Reported) Multivits-Min/Iron/FA/Lutein (Centrum Silver Women Tablet) 8 Mg Iron-400 Mcg- 300 Mcg Tablet 1 EACH PO noon (Reported) Ranitidine (Ranitidine) 150 Mg Capsule 150 MG PO noon (Reported) As needed Acetaminophen (Acetaminophen) 500 Mg Tablet 500-1,000 MG PO Q6H PRN PRN For Pain (Reported) Epinephrine (Epipen 2-David) 0.3 Mg/0.3 Ml Auto.injct 1 DOSE INJ prn PRN PRN For Anaphyllaxis (Reported) Nitroglycerin SL (Nitrostat) 0.4 Mg Tab.subl 0.4 MG SL Q5MIN PRN PRN For Chest Pain Prescribed by: SOHA BLANTON MD Followup Plan Discharge Diet: Heart Healthy Discharge Activity: Limited until seen by PCP Patient Instructions Continue your medications as previously prescribed. Follow up with your tank cleaner in 1-2 weeks as previously arranged, and he can advise you to possibly make changes to your furosemide dose. Also, discuss possibly starting a weekly dosage of Aranesp or another form of erythropoietin for anemia. Follow up with your primary care provider in 1 week. Continue oxygen supplementation at home with home oxygen. Follow-up Provider: Ghulam Mukherjee MD Follow-up with PCP in: 1 week Provider: Aga Key MD Follow-up in: 2 weeks Time spent 35 min Attending Statement The patient was seen and examined together with Resident/House-staff on 10/07/16 and I agree with the history, exam and plan as outlined in the note above. copies to: Aga Key MD; Ghulam Mukherjee MD; Vipin Jain MD, Marissa L DO Oct 07, 2016 19:24 Russ Kirby Oct 18, 2016 19:52
== END 2016-10-07 17:08 | disposition home or self-care (01) | DRG 189 ==
LOC: SED 08:39 → MPC 11:54
PROVIDERS: ADMIT Internal Medicine; ATTEND Internal Medicine
DX: J96.01 Acute respiratory failure with hypoxia (principal); I42.8 Other cardiomyopathies; E87.0 Hyperosmolality and hypernatremia; N18.4 Chronic kidney disease, stage 4 (severe); I50.42 Chronic combined systolic (congestive) and diastolic (congestive) heart failure; I51.7 Cardiomegaly; I12.9 Hypertensive chronic kidney disease with stage 1 through stage 4 chronic kidney disease, or unspecified chronic kidney disease; D63.1 Anemia in chronic kidney disease; J20.8 Acute bronchitis due to other specified organisms; Z95.0 Presence of cardiac pacemaker; Z79.82 Long term (current) use of aspirin; Z87.891 Personal history of nicotine dependence